=== PATIENT | female | born 1945 | race Caucasian/White ===

== ENCOUNTER → 2018-03-16 16:30 | Outpatient (CLI) | payer OTHER, SELFPAY ==
--- NOTE | 2018-03-16 16:37 | DI.MRI.S_ITS ---
PROCEDURE: MR SHOULDER LT WO CON INDICATIONS: LEFT SHOULDER PAIN WITH DECREASED RANGE OF MOTION POST FALL TECHNIQUE: Noncontrast oblique coronal T2 fast spin echo with fat saturation, oblique sagittal T1 spin echo and T2 fast spin echo with fat saturation, axial T1 spin echo and T2 fast spin echo with fat saturation through the shoulder. COMPARISON: None. FINDINGS: Image quality: Excellent. Rotator cuff: There is tendinosis and moderate grade articular surface partial thickness tear involving musculotendinous junction of supraspinatus. Tendinosis and low-grade articular surface partial-thickness tear involving the distal infraspinatus is also seen. Tendinosis and low-grade partial-thickness tear involving the superior to mid fibers of the distal subscapularis is noted extending to musculotendinous junction. No gross full-thickness rotator cuff tendon rupture. Sagittal images demonstrate mild supraspinatus muscle atrophy. Bones and bursae: No bone marrow contusions or fractures. Moderate acromioclavicular joint osteoarthritis is seen with mass effect on musculotendinous junction of supraspinatus. Mild glenohumeral joint osteoarthritis is also noted. There is small amount of glenohumeral joint fluid. No significant subacromial subdeltoid bursal fluid. Capsule and soft tissues: There is superior anterior labral tear at 12 to 2:00 position. No gross inferior labral tear. The long head of the biceps tendon demonstrates normal location and morphology. The rotator interval appears normal, without fibrosis. The coracohumeral ligament is normal in thickness. IMPRESSION: 1. Tendinosis and moderate grade articular surface partial thickness tear involving musculotendinous junction of distal supraspinatus. Tendinosis and low-grade articular surface partial-thickness involving distal infraspinatus. Tendinosis and low-grade partial-thickness tear involving superior to mid fibers of distal subscapularis. No full-thickness rotator cuff tendon tear. Mild supraspinatus muscle atrophy. 2. Suggestion of superior anterior labral tear from 12 to 2:00 position. 3. Moderate acromioclavicular joint osteoarthritis and mild glenohumeral joint osteoarthritis. No fracture or dislocation. Dictated by: Manuel Brooks M.D. on 03/16/2018 at 21:25 Approved by: Manuel Brooks M.D. on 03/16/2018 at 21:31
== END ==
PROVIDERS: Visit Provider Nurse Practitioner Acute Care
DX: M25.512 Pain in left shoulder (principal); S46.012A Strain of muscle(s) and tendon(s) of the rotator cuff of left shoulder, initial encounter; M19.012 Primary osteoarthritis, left shoulder
CPT/HCPCS: 73221

== ENCOUNTER → 2019-03-02 12:13 | Outpatient (CLI) | payer OTHER, SELFPAY ==
--- NOTE | 2019-03-02 | DI.MG.S_ITS ---
BILATERAL DIGITAL SCREENING MAMMOGRAM 3D/2D WITH CAD: 03/02/2019 CLINICAL: Routine screening. Comparison is made to exams dated: 04/03/2017 mammogram, 05/22/2015 mammogram, and 11/09/2013 mammogram - [facility]. The tissue of both breasts is heterogeneously dense. This may lower the sensitivity of mammography. Current study was also evaluated with a Computer Aided Detection (CAD) system. No significant masses, calcifications, or other findings are seen in either breast. There has been no significant interval change. IMPRESSION: NEGATIVE There is no mammographic evidence of malignancy. A 1 year screening mammogram is recommended. This exam was interpreted at Station ID: [id number]. NOTE: For mammograms, a report in lay terms will be sent to the patient. Approximately 15% of breast malignancies will not be visualized mammographically. In the management of a palpable breast mass, a negative mammogram must not discourage biopsy of a clinically suspicious lesion. Electronically Signed By: Narendra ty/taina:03/02/2019 13:55:50 letter sent: Normal Exam ACR BI-RADS Category 1: Negative [id number]
== END ==
PROVIDERS: Visit Provider Nurse Practitioner Acute Care
DX: Z13.21 Encounter for screening for nutritional disorder (principal)
CPT/HCPCS: 77063; 77067

== ENCOUNTER 2020-08-13 13:05 | Emergency (ER) | payer MEDICARE, OTHER, SELFPAY ==
[2020-08-13 13:10] VITALS: BP 144/79; PULSE 83; RESP 20; TEMP 36.3; O2SAT 97
[2020-08-13 13:38] LABS: Add Manual Diff / Slide Review NO; Basophils Absolute Auto 100 /uL (0-100); Basophils Percent Auto 0.7 % (0-2); Eosinophils Absolute Auto 200 /uL (0-450); Eosinophils Percent Auto 2.1 % (2-4); Hemoglobin 13.5 g/dL (12.0-16.0); Lymphocytes Absolute Auto 1900 /uL (1100-4500); Lymphocytes Percent Auto 21.9 % (25-40); Mean Corpuscular HGB Conc 32.1 % (30-36); Mean Corpuscular Hemoglobin 26.2 PG (26-34); Mean Corpuscular Volume 81.5 fL (80-100); Monocytes Absolute Auto 700 /uL (0-900); Monocytes Percent Auto 7.4 % (3-14); Neutrophils Absolute Auto 6000 /uL (1500-7000); Neutrophils Percent Auto 67.9 % (50-75); Platelet Count 339 X10^3/uL (150-400); Red Blood Cell Count 5.15 X10^6/uL (4.0-5.2); White Blood Cell Count 8.8 X10^3/uL (4.5-11.0)
[2020-08-13 13:44] LABS: Ictotest Urine Negative (Negative)
[2020-08-13 13:45] LABS: Bacteria Urine Many (>30); Culture Indicated Urine Specimen Cultured; RBC Urine 10-30/HPF (0-5/HPF); Squamous Epithelial Cell Urine 1-5 /HPF (0-5/HPF); Transitional Epi Cells Urine 5-10/HPF (0-5/HPF); WBC Urine 30-100/HPF (0-5/HPF)
[2020-08-13 13:49] LABS: Alanine Aminotransferase 15 IU/L (<35); Albumin 4.3 g/dL (3.5-5.0); Alkaline Phosphatase 67 U/L (38-126); Amylase 89 U/L (30-110); Aspartate Aminotransferase 27 IU/L (14-36); BUN Creatinine Ratio 20.4 (6-22); Bilirubin Total 0.3 mg/dL (0.2-1.3); Blood Urea Nitrogen 21 mg/dL (7-17); Calcium 9.6 mg/dL (8.4-10.2); Carbon Dioxide 30 mmol/L (22-32); Chloride 103 mmol/L (98-107); Estimated Glomerular Filt Rate 52.4 mL/min (>60); Globulin 4.2 g/dL (1.7-4.1); Glucose 98 mg/dL (80-110); HEMOLYSIS < 15 (0-50); Lipase 82 U/L (23-300); Potassium 4.1 mmol/L (3.4-5.1); Sodium 137 mmol/L (137-145); Total Protein 8.5 g/dL (6.3-8.2)
[2020-08-13 13:51] LABS: Lactate (Lactic Acid) 0.7 mmol/L (0.7-2.1)
--- NOTE | 2020-08-13 13:54 | DI.CT.S_ITS ---
PROCEDURE: CT ABDOMEN PELVIS W CON INDICATIONS: LLQ pain, hx divritic TECHNIQUE: After the administration of intravenous contrast, 5 mm thick sections acquired from the diaphragm to the symphysis. 5 mm coronal and sagittal reformats were acquired. For radiation dose reduction, the following was used: automated exposure control, adjustment of mA and/or kV according to patient size. COMPARISON: None. FINDINGS: Image quality: Excellent. ABDOMEN: Lung bases: Lung bases are clear. Heart size is normal. Solid organs: Linear enhancement within the right anterior aspect of the liver. Punctate calcifications consistent with prior granulomatous disease. Gallbladder is surgically absent. Biliary system is prominent likely within normal limits given surgical status. Pancreas enhances normally. Spleen is normal in size and enhancement. No adrenal nodules. There are multiple simple cysts noted throughout the kidneys. There is a 1.7 centimeter cystic lesion within the superior pole of the left kidney which measures slightly greater than simple fluid. There is no hydronephrosis. Peritoneum and bowel: Stomach and small bowel are unremarkable in appearance without evidence of obstruction. No focal wall thickening. The appendix is normal. There is sigmoid colon diverticulosis. There is suggestion of minimal inflammation noted adjacent to it with 3-4 centimeter stretch adjacent to the distal sigmoid colon within the left pelvis. There is no fluid collection. No pneumoperitoneum. Nodes and vessels: No retroperitoneal or mesenteric adenopathy by size criteria. Aorta and inferior vena cava are normal in size. There is diffuse vascular calcifications. 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 Miscellaneous: No ventral hernias. PELVIS: Genitourinary: Bladder wall thickness is normal. Miscellaneous: No inguinal hernias or adenopathy. Bones: No suspicious bony lesions. No vertebral body compression fractures. IMPRESSION: Diverticulosis. There is very subtle inflammation surrounding a short segment of distal sigmoid colon which may represent early diverticulitis. No evidence of complication. Multiple renal cysts. Indeterminate cystic lesion within the superior pole of the left kidney. Recommend dedicated renal CT or MRI for further evaluation Subtle linear densities within the anterior aspect of the right hepatic lobe may represent vascular anomaly. Recommend attention on renal imaging. Dictated by: Ld Rhoades D.O. on 08/13/2020 at 13:40 Approved by: Ld Rhoades D.O. on 08/13/2020 at 13:52
--- NOTE | 2020-08-13 14:08 | ED.ABDPAIN ---
HPI - Abdominal Pain <ALYSSA Nguyen-BC - Last Filed: 08/13/20 15:32> General Chief Complaint: Abdominal Pain Stated Complaint: pain in lower left quadrand Time Seen by Provider: 08/13/20 13:09 Source: patient Mode of arrival: Ambulatory Limitations: no limitations History of Present Illness HPI narrative: The patient is a 75 year old female non current smoker who presents with a chief complaint of left lower quadrant pain for the past week or so. She has a history of hypertension, hysterectomy, cholecystectomy, as well as diverticulitis. She had a colonoscopy after her episode of diverticulitis this summer which found diverticulosis. She denies any fevers muscle aches or chills. She denies any nausea or vomiting. She states that at time her pain is 10/10 but is currently 4/ 10. She denies any dysuria but complains of urgency. Who states that this feels very similar to her previous episode of diverticulitis. Denies any change in bowel habits, last bowel movement this morning. Related Data Home Medications Medication Instructions Recorded Confirmed atenolol 50 mg PO QDAY #0 08/25/11 conjugated estrogens [Premarin] 0.625 mg PO QDAY #0 08/25/11 fluoxetine [Prozac] 20 mg Q DAY #0 08/25/11 levothyroxine 0.088 mg PO QDAY #0 08/25/11 lisinopril 5 mg PO QDAY #0 08/25/11 Previous Rx's Medication Instructions Recorded ciprofloxacin HCl 500 mg PO BID #14 tab 08/13/20 metronidazole 500 mg PO Q8H 7 Days #21 tab 08/13/20 Allergies Allergy/AdvReac Type Severity Reaction Status Date / Time codeine Allergy Mild Verified 08/13/20 13:20 Review of Systems <NATHANAEL NguyenBC - Last Filed: 08/13/20 15:32> Review of Systems Narrative: GENERAL: Denies chills, fatigue, malaise, fever, sweats. HEENT: Denies sinus pain, ear pain, sore throat, difficulty swallowing, dizziness. RESPIRATORY: Denies dyspnea, cough, wheezing, hemoptysis, sputum. CARDIOVASCULAR: Denies chest pain, palpitations, orthopnea, edema, GASTROINTESTINAL: See HPI : Denies dysuria, frequency, incontinence, hematuria, urinary retention. MUSCULOSKELETAL: denies weakness, joint pain, or bony pain SKIN: Denies rash, skin lesions, or other NEUROLOGIC: Denies weakness, headache, numbness, change in speech, confusion, seizures, incoordination. PSYCHIATRIC: No concerning psychosocial issues. 12 point review of systems is negative except for those stated above Patient History <PATEL Nguyen - Last Filed: 08/13/20 15:32> Medical History (Updated 08/13/20 @ 15:29 by PATEL Nguyen) Hypertension Hypothyroid Surgical History (Updated 08/13/20 @ 14:11 by PATEL Nguyen) History of cholecystectomy History of hysterectomy Exam <PATEL Nguyen - Last Filed: 08/13/20 15:32> Narrative Exam Narrative: GENERAL: This is a well-nourished, well-developed patient, in no acute distress HEAD: Atraumatic. Normocephalic. No temporal or scalp tenderness. EYES: Pupils equal round and reactive. Extraocular motions intact. No scleral icterus. No injection or drainage. ENT: Nose without bleeding, purulent drainage or septal hematoma. Wearing a mask Airway patent. NECK: Trachea midline. No JVD or lymphadenopathy. Supple, nontender, no meningeal signs. CARDIOVASCULAR: Regular rate and rhythm RESPIRATORY: Clear to auscultation. Breath sounds equal bilaterally. No wheezes, rales, or rhonchi. No cough. No increased respiratory effort. No accessory muscle use. GASTROINTESTINAL: Abdomen soft, active bowel sounds all 4 quadrants, nondistended. No hepato-splenomegaly, or palpable masses. Pain to palpation with slight guarding noted left lower quadrant EXTREMITIES: No clubbing, cyanosis, or edema. No joint tenderness, effusion, or edema noted. BACK: Nontender without deformity or crepitance. No flank tenderness. NEURO: AOx3. SKIN: No rash or erythema on visible skin Initial Vital Signs Initial Vital Signs: Vital Signs Temperature 97.4 F L 08/13/20 13:10 Pulse Rate 83 08/13/20 13:10 Respiratory Rate 20 08/13/20 13:10 Blood Pressure 144/79 H 08/13/20 13:10 Pulse Oximetry 97 08/13/20 13:10 <Ethan Singh DO - Last Filed: 08/13/20 15:36> Initial Vital Signs Initial Vital Signs: Vital Signs Temperature 97.4 F L 08/13/20 13:10 Pulse Rate 83 08/13/20 13:10 Respiratory Rate 20 08/13/20 13:10 Blood Pressure 144/79 H 08/13/20 13:10 Pulse Oximetry 97 08/13/20 13:10 Scores <Alena PATEL Beltre - Last Filed: 08/13/20 15:32> GCS Deborah coma scale eye opening: Spontaneous Deborah coma scale verbal response: Orientated Deborah coma scale motor response: Obey commands Deborah coma scale total score: 15 Course <PATEL Nguyen - Last Filed: 08/13/20 15:32> Orders Ordered: ED Orders 08/13/20 13:22 Amylase Stat Complete Blood Count AUTO DIFF Stat Comprehensive Metabolic Panel Stat Ictotest Urine Stat Lactate (Lactic Acid) Stat Lipase Stat Urine Culture Stat Urine Microscopic Stat 08/13/20 13:51 Urine Microscopic Stat 08/13/20 13:54 CT abdomen pelvis w con Stat Sodium Chloride (Normal Saline 0.9%) 1,000 mls @ 150 mls/hr IV CONT MAXI Last Admin: 08/13/20 13:35 Dose: Not Given Documented by: MARLA Discontinued Medications Ciprofloxacin (Ciprofloxacin 500 Mg Tablet) 500 mg PO NOW ONE Stop: 08/13/20 15:16 Last Admin: 08/13/20 15:21 Dose: 500 mg Documented by: SYBIL Sodium Chloride (Normal Saline 0.9%) 1,000 mls @ 1,000 mls/hr IV BOLUS ONE Stop: 08/13/20 14:53 Last Infusion: 08/13/20 15:33 Dose: 0 mls/hr Documented by: Admin: 08/13/20 14:25 Dose: 1,000 mls/hr Documented by: MARLA Metronidazole (Metronidazole 500 Mg Tablet) 500 mg PO NOW ONE Stop: 08/13/20 15:16 Last Admin: 08/13/20 15:21 Dose: 500 mg Documented by: SYBIL Vital Signs Vital signs: Vital Signs - 8 hr 08/13/20 13:10 Temperature 97.4 F L Pulse Rate 83 Respiratory Rate 20 Blood Pressure 144/79 H Pulse Oximetry 97 <Ethan Singh DO - Last Filed: 08/13/20 15:36> Orders Ordered: ED Orders 08/13/20 13:22 Amylase Stat Complete Blood Count AUTO DIFF Stat Comprehensive Metabolic Panel Stat Ictotest Urine Stat Lactate (Lactic Acid) Stat Lipase Stat Urine Culture Stat Urine Microscopic Stat 08/13/20 13:51 Urine Microscopic Stat 08/13/20 13:54 CT abdomen pelvis w con Stat Sodium Chloride (Normal Saline 0.9%) 1,000 mls @ 150 mls/hr IV CONT MAXI Last Admin: 08/13/20 13:35 Dose: Not Given Documented by: MARLA Discontinued Medications Ciprofloxacin (Ciprofloxacin 500 Mg Tablet) 500 mg PO NOW ONE Stop: 08/13/20 15:16 Last Admin: 08/13/20 15:21 Dose: 500 mg Documented by: SYBIL Sodium Chloride (Normal Saline 0.9%) 1,000 mls @ 1,000 mls/hr IV BOLUS ONE Stop: 08/13/20 14:53 Last Infusion: 08/13/20 15:33 Dose: 0 mls/hr Documented by: Admin: 08/13/20 14:25 Dose: 1,000 mls/hr Documented by: MARLA Metronidazole (Metronidazole 500 Mg Tablet) 500 mg PO NOW ONE Stop: 08/13/20 15:16 Last Admin: 08/13/20 15:21 Dose: 500 mg Documented by: SYBIL Vital Signs Vital signs: Vital Signs - 8 hr 08/13/20 13:10 Temperature 97.4 F L Pulse Rate 83 Respiratory Rate 20 Blood Pressure 144/79 H Pulse Oximetry 97 MDM - Abdominal Pain <PATEL Nguyen - Last Filed: 08/13/20 15:32> Differential Diagnosis Differential diagnosis: Likely abdominal pain and diverticulitis Lab Data Attestation: I reviewed the patient's lab results. Result diagrams: 08/13/20 13:22 08/13/20 13:22 Labs: Lab Results 08/13/20 08/13/20 08/13/20 Range/Units 13:22 13:22 13:22 WBC 8.8 (4.5-11.0) X10^3/uL RBC 5.15 (4.0-5.2) X10^6/uL Hgb 13.5 (12.0-16.0) g/dL Hct 42.0 (36-46) % MCV 81.5 (80-100) fL MCH 26.2 (26-34) PG MCHC 32.1 (30-36) % RDW 14.0 (11.6-14.8) % Plt Count 339 (150-400) X10^3/uL Neut % (Auto) 67.9 (50-75) % Lymph % (Auto) 21.9 L (25-40) % Ransom % (Auto) 7.4 (3-14) % Eos % (Auto) 2.1 (2-4) % Baso % (Auto) 0.7 (0-2) % Neut # (Auto) 6000 (3988-8704) /uL Lymph # (Auto) 1900 (1549-3609) /uL Ransom # (Auto) 700 (0-900) /uL Eos # (Auto) 200 (0-450) /uL Baso # (Auto) 100 (0-100) /uL Sodium 137 (137-145) mmol/L Potassium 4.1 (3.4-5.1) mmol/L Chloride 103 (98-107) mmol/L Carbon Dioxide 30 (22-32) mmol/L BUN 21 H (7-17) mg/dL Creatinine 1.03 (0.52-1.04) mg/dL Estimated GFR 52.4 L (>60) mL/min BUN/Creatinine Ratio 20.4 (6-22) Glucose 98 (80-110) mg/dL Lactate 0.7 (0.7-2.1) mmol/L Calcium 9.6 (8.4-10.2) mg/dL Total Bilirubin 0.3 (0.2-1.3) mg/dL AST 27 (14-36) IU/L ALT 15 (<35) IU/L Alkaline Phosphatase 67 (38-126) U/L Total Protein 8.5 H (6.3-8.2) g/dL Albumin 4.3 (3.5-5.0) g/dL Globulin 4.2 H (1.7-4.1) g/dL Albumin/Globulin Ratio 1.0 (1.0-2.8) Amylase 89 (30-110) U/L Lipase 82 (23-300) U/L Ur Bilirubin Confirm (Negative) Urine RBC (0-5/HPF) Urine WBC (0-5/HPF) Ur Squamous Epith Cells (0-5/HPF) Ur Transition Epith Cell (0-5/HPF) Urine Bacteria (None) Ur Culture Indicated? 08/13/20 Range/Units 13:22 WBC (4.5-11.0) X10^3/uL RBC (4.0-5.2) X10^6/uL Hgb (12.0-16.0) g/dL Hct (36-46) % MCV (80-100) fL MCH (26-34) PG MCHC (30-36) % RDW (11.6-14.8) % Plt Count (150-400) X10^3/uL Neut % (Auto) (50-75) % Lymph % (Auto) (25-40) % Ransom % (Auto) (3-14) % Eos % (Auto) (2-4) % Baso % (Auto) (0-2) % Neut # (Auto) (0321-7472) /uL Lymph # (Auto) (0658-9687) /uL Ransom # (Auto) (0-900) /uL Eos # (Auto) (0-450) /uL Baso # (Auto) (0-100) /uL Sodium (137-145) mmol/L Potassium (3.4-5.1) mmol/L Chloride (98-107) mmol/L Carbon Dioxide (22-32) mmol/L BUN (7-17) mg/dL Creatinine (0.52-1.04) mg/dL Estimated GFR (>60) mL/min BUN/Creatinine Ratio (6-22) Glucose (80-110) mg/dL Lactate (0.7-2.1) mmol/L Calcium (8.4-10.2) mg/dL Total Bilirubin (0.2-1.3) mg/dL AST (14-36) IU/L ALT (<35) IU/L Alkaline Phosphatase (38-126) U/L Total Protein (6.3-8.2) g/dL Albumin (3.5-5.0) g/dL Globulin (1.7-4.1) g/dL Albumin/Globulin Ratio (1.0-2.8) Amylase (30-110) U/L Lipase (23-300) U/L Ur Bilirubin Confirm Negative (Negative) Urine RBC 10-30/hpf H (0-5/HPF) Urine WBC 30-100/hpf H (0-5/HPF) Ur Squamous Epith Cells 1-5 /hpf (0-5/HPF) Ur Transition Epith Cell 5-10/hpf H (0-5/HPF) Urine Bacteria Many (>30) H (None) Ur Culture Indicated? Specimen cultured Point of care testing: Urine Dip Bedside Urine Glucose Negative Bedside Urine Bilirubin + 1 Bedside Urine Ketone - Negative Urine Specific [place] 1.025 Bedside Urine Occult Blood + Bedside Urine pH 6.0 Bedside Urine Protein ++ 100 Bedside Urine Urobilinogen - Negative Bedside Urine Nitrite - Negative Bedside Urine Leukocytes +/- [address] scan - abdomen/pelvis: Radiologist's Impression: [address] [place] [id number] Scan ReportSigned Patient: Uzma WellsMR#: [id number]: 7Acct:[id number]/Sex: 75 / FDate of Service: 08/13/20Loc: EDAccession Number: [id number] Procedure: CT abdomen pelvis w con Ordering Provider: Alena Beltre TRANSFORMATION ANALYST- PROCEDURE: CT ABDOMEN PELVIS W CON INDICATIONS: LLQ pain, hx divritic TECHNIQUE: After the administration of intravenous contrast, 5 mm thick sections acquired from the diaphragm to the symphysis. 5 mm coronal and sagittal reformats were acquired. For radiation dose reduction, the following was used: automated exposure control, adjustment of mA and/or kV according to patient size. COMPARISON: None. FINDINGS: Image quality: Excellent. ABDOMEN: Lung bases: Lung bases are clear. Heart size is normal. Solid organs: Linear enhancement within the right anterior aspect of the liver. Punctate calcifications consistent with prior granulomatous disease. Gallbladder is surgically absent. Biliary system is prominent likely within normal limits given surgical status. Pancreas enhances normally. Spleen is normal in size and enhancement. No adrenal nodules. There are multiple simple cysts noted throughout the kidneys. There is a 1.7 centimeter cystic lesion within the superior pole of the left kidney which measures slightly greater than simple fluid. There is no hydronephrosis. Peritoneum and bowel: Stomach and small bowel are unremarkable in appearance without evidence of obstruction. No focal wall thickening. The appendix is normal. There is sigmoid colon diverticulosis. There is suggestion of minimal inflammation noted adjacent to it with 3-4 centimeter stretch adjacent to the distal sigmoid colon within the left pelvis. There is no fluid collection. No pneumoperitoneum. Nodes and vessels: No retroperitoneal or mesenteric adenopathy by size criteria. Aorta and inferior vena cava are normal in size. There is diffuse vascular calcifications. 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 Miscellaneous: No ventral hernias. PELVIS: Genitourinary: Bladder wall thickness is normal. Miscellaneous: No inguinal hernias or adenopathy. Bones: No suspicious bony lesions. No vertebral body compression fractures. IMPRESSION: Diverticulosis. There is very subtle inflammation surrounding a short segment of distal sigmoid colon which may represent early diverticulitis. No evidence of complication. Multiple renal cysts. Indeterminate cystic lesion within the superior pole of the left kidney. Recommend dedicated renal CT or MRI for further evaluation Subtle linear densities within the anterior aspect of the right hepatic lobe may represent vascular anomaly. Recommend attention on renal imaging. Dictated by: Ld Rhoades D.O. on 08/13/2020 at 13:40 Approved by: Ld Rhoades D.O. on 08/13/2020 at 13:52 [facility] Narrative Medical decision making narrative: The patient is a 75-year-old female who presents with a chief complaint of left lower quadrant pain. Her labs are grossly unremarkable, no leukocytosis,Normal lactate. However given her history and pain on exam, CT abdomen pelvis was obtained. This is concerning for inflammation around a short segment of the distal sigmoid colon, which may represent early diverticulitis. Given her known diverticulosis and history of diverticulitis, will treat for diverticulitis. She also has urinary tract infection, which should be treated with her diverticulosis treatment. I did discuss at length with the patient that she was found to have multiple renal cysts, suggested follow-up regarding this as well as possible vascular anomaly of the right hepatic lobe. Will place patient on an ciprofloxacin and metronidazole. Patient declines any pain or nausea medication repeatedly in the emergency department and declines prescriptions. I encouraged follow-up with primary care provider in the next few days as well as coming back to the ER for acute concerns such as inability keep down food or fluid etcetera. Patient has no questions or concerns upon discharge, was able to tolerate 1st dose of antibiotics prior to discharge p.o., and was hemodynamically stable throughout her stay. <Ethan Singh, DO - Last Filed: 08/13/20 15:36> Lab Data Labs: Lab Results 08/13/20 08/13/20 08/13/20 Range/Units 13:22 13:22 13:22 WBC 8.8 (4.5-11.0) X10^3/uL RBC 5.15 (4.0-5.2) X10^6/uL Hgb 13.5 (12.0-16.0) g/dL Hct 42.0 (36-46) % MCV 81.5 (80-100) fL MCH 26.2 (26-34) PG MCHC 32.1 (30-36) % RDW 14.0 (11.6-14.8) % Plt Count 339 (150-400) X10^3/uL Neut % (Auto) 67.9 (50-75) % Lymph % (Auto) 21.9 L (25-40) % Ransom % (Auto) 7.4 (3-14) % Eos % (Auto) 2.1 (2-4) % Baso % (Auto) 0.7 (0-2) % Neut # (Auto) 6000 (7265-1585) /uL Lymph # (Auto) 1900 (3613-4118) /uL Ransom # (Auto) 700 (0-900) /uL Eos # (Auto) 200 (0-450) /uL Baso # (Auto) 100 (0-100) /uL Sodium 137 (137-145) mmol/L Potassium 4.1 (3.4-5.1) mmol/L Chloride 103 (98-107) mmol/L Carbon Dioxide 30 (22-32) mmol/L BUN 21 H (7-17) mg/dL Creatinine 1.03 (0.52-1.04) mg/dL Estimated GFR 52.4 L (>60) mL/min BUN/Creatinine Ratio 20.4 (6-22) Glucose 98 (80-110) mg/dL Lactate 0.7 (0.7-2.1) mmol/L Calcium 9.6 (8.4-10.2) mg/dL Total Bilirubin 0.3 (0.2-1.3) mg/dL AST 27 (14-36) IU/L ALT 15 (<35) IU/L Alkaline Phosphatase 67 (38-126) U/L Total Protein 8.5 H (6.3-8.2) g/dL Albumin 4.3 (3.5-5.0) g/dL Globulin 4.2 H (1.7-4.1) g/dL Albumin/Globulin Ratio 1.0 (1.0-2.8) Amylase 89 (30-110) U/L Lipase 82 (23-300) U/L Ur Bilirubin Confirm (Negative) Urine RBC (0-5/HPF) Urine WBC (0-5/HPF) Ur Squamous Epith Cells (0-5/HPF) Ur Transition Epith Cell (0-5/HPF) Urine Bacteria (None) Ur Culture Indicated? 08/13/20 Range/Units 13:22 WBC (4.5-11.0) X10^3/uL RBC (4.0-5.2) X10^6/uL Hgb (12.0-16.0) g/dL Hct (36-46) % MCV (80-100) fL MCH (26-34) PG MCHC (30-36) % RDW (11.6-14.8) % Plt Count (150-400) X10^3/uL Neut % (Auto) (50-75) % Lymph % (Auto) (25-40) % Ransom % (Auto) (3-14) % Eos % (Auto) (2-4) % Baso % (Auto) (0-2) % Neut # (Auto) (5633-0308) /uL Lymph # (Auto) (4544-6999) /uL Ransom # (Auto) (0-900) /uL Eos # (Auto) (0-450) /uL Baso # (Auto) (0-100) /uL Sodium (137-145) mmol/L Potassium (3.4-5.1) mmol/L Chloride (98-107) mmol/L Carbon Dioxide (22-32) mmol/L BUN (7-17) mg/dL Creatinine (0.52-1.04) mg/dL Estimated GFR (>60) mL/min BUN/Creatinine Ratio (6-22) Glucose (80-110) mg/dL Lactate (0.7-2.1) mmol/L Calcium (8.4-10.2) mg/dL Total Bilirubin (0.2-1.3) mg/dL AST (14-36) IU/L ALT (<35) IU/L Alkaline Phosphatase (38-126) U/L Total Protein (6.3-8.2) g/dL Albumin (3.5-5.0) g/dL Globulin (1.7-4.1) g/dL Albumin/Globulin Ratio (1.0-2.8) Amylase (30-110) U/L Lipase (23-300) U/L Ur Bilirubin Confirm Negative (Negative) Urine RBC 10-30/hpf H (0-5/HPF) Urine WBC 30-100/hpf H (0-5/HPF) Ur Squamous Epith Cells 1-5 /hpf (0-5/HPF) Ur Transition Epith Cell 5-10/hpf H (0-5/HPF) Urine Bacteria Many (>30) H (None) Ur Culture Indicated? Specimen cultured Point of care testing: Urine Dip Bedside Urine Glucose Negative Bedside Urine Bilirubin + 1 Bedside Urine Ketone - Negative Urine Specific [place] 1.025 Bedside Urine Occult Blood + Bedside Urine pH 6.0 Bedside Urine Protein ++ 100 Bedside Urine Urobilinogen - Negative Bedside Urine Nitrite - Negative Bedside Urine Leukocytes +/- 15 Esterase Discharge Plan Departure Patient Disposition: Home Clinical Impression: Diverticulitis, Bilateral renal cysts Urinary tract infection Qualifiers: Urinary tract infection type: site unspecified Hematuria presence: with hematuria Qualified Code(s): N39.0 - Urinary tract infection, site not specified Instructions: DI for Diverticulitis, DI for Urinary Tract Infection (UTI) Activity Restrictions/Additional Instructions: Thank you for trusting us with your care today. As discussed, your CT shows signs of inflammation, indicating early diverticulitis. I sent 2 prescriptions which are antibiotics to [facility]. Please eat a light diet, starting with clear fluids and then progress as able. The CT also does show possibility of some renal cysts and a very subtle vascular irregularity of the right lobe of your liver. Please follow-up with primary care provider regarding this as they may be able to get more focused Imaging. Please do not drink with his antibiotics. Please follow-up with primary care provider in the next few days. Please come back to the emergency department for any acute concerns such as inability keep down fluids. Prescriptions: New metronidazole 500 mg tablet 500 mg PO Q8H 7 Days Qty: 21 RF: 0 ciprofloxacin HCl 500 mg tablet 500 mg PO BID Qty: 14 RF: 0 No Action atenolol 25 MG tablet 50 mg PO QDAY Qty: 0 RF: 0 fluoxetine [Prozac] 40 MG capsule 20 mg Q DAY Qty: 0 RF: 0 lisinopril 5 MG tablet 5 mg PO QDAY Qty: 0 RF: 0 levothyroxine 88 MCG tablet 0.088 mg PO QDAY Qty: 0 RF: 0 conjugated estrogens [Premarin] 0.625 MG tablet 0.625 mg PO QDAY Qty: 0 RF: 0 Referrals: Ileana Saldana MD [Non-Staff] - Corrie Ahmadi ARNP [Non-Staff] - <Ethan Singh, - Last Filed: 08/13/20 15:36> Cosign ED Attending Cosignature Attestation: Dr Singh Co-Sign Statement: I was available for consultation during this patient's emergency department visit. This chart is signed by myself for administrative purposes only. I did not have direct contact with this patient during this visit. They were seen independently by the APC.
[2020-08-13] MEDS: SODIUM CHLORIDE 0.9% 1,000 ML 1000 ML IV (14:25)
[2020-08-13] MEDS: metroNIDAZOLE 500 MG TABLET PO (15:21)
[2020-08-13] MEDS: CIPROFLOXACIN 500 MG TABLET PO (15:21)
[2020-08-13 15:45] VITALS: BP 152/81; PULSE 81; RESP 18; O2SAT 97
== END 2020-08-13 15:40 | disposition home or self-care (01) ==
PROVIDERS: Emergency Provider Nurse Practitioner Family
DX: K57.92 Diverticulitis of intestine, part unspecified, without perforation or abscess without bleeding (principal); N28.1 Cyst of kidney, acquired; N39.0 Urinary tract infection, site not specified; I10 Essential (primary) hypertension; E03.9 Hypothyroidism, unspecified
CPT/HCPCS: 36415; 74177; 80053; 81003; 81015; 82150; 83605; 83690; 85025; 87077; 87086; 87186; 96360; 99283; 99284; Q9967

== ENCOUNTER → 2020-09-11 10:47 | Outpatient (CLI) | payer MEDICARE, OTHER, SELFPAY ==
[2020-09-11 12:10] LABS: BUN Creatinine Ratio 19.5 (6-22); Blood Urea Nitrogen 16 mg/dL (7-17); Estimated Glomerular Filt Rate > 60.0 mL/min (>60)
== END ==
PROVIDERS: PCP Student in an Organized Health Care Education/Training Program; Referring Provider Student in an Organized Health Care Education/Training Program; Visit Provider Student in an Organized Health Care Education/Training Program
DX: Z01.818 Encounter for other preprocedural examination (principal)
CPT/HCPCS: 36415; 82565; 84520

== ENCOUNTER → 2020-09-18 09:41 | Outpatient (CLI) | payer MEDICARE, OTHER, SELFPAY ==
--- NOTE | 2020-09-18 09:43 | DI.MG.S_ITS ---
BILATERAL DIGITAL SCREENING MAMMOGRAM 3D/2D WITH CAD: 09/18/2020 CLINICAL: Routine screening. Comparison is made to exams dated: 03/02/2019 mammogram - [facility], 04/03/2017 mammogram, 05/22/2015 mammogram, and 11/09/2013 mammogram - [facility]. There are scattered fibroglandular elements in both breasts. Current study was also evaluated with a Computer Aided Detection (CAD) system. No significant masses, calcifications, or other findings are seen in either breast. There has been no significant interval change. IMPRESSION: NEGATIVE There is no mammographic evidence of malignancy. A 1 year screening mammogram is recommended. This exam was interpreted at Station ID: [id number]. NOTE: For mammograms, a report in lay terms will be sent to the patient. Approximately 15% of breast malignancies will not be visualized mammographically. In the management of a palpable breast mass, a negative mammogram must not discourage biopsy of a clinically suspicious lesion. Electronically Signed By: Shivam mathur/taina:09/18/2020 10:58:04 letter sent: Normal Exam ACR BI-RADS Category 1: Negative [id number]
--- NOTE | 2020-09-18 11:05 | DI.CT.S_ITS ---
PROCEDURE: CT ABDOMEN WWO PELVIS W INDICATIONS: Eval renal cysts and hepatic lesion on previous CT TECHNIQUE: After the administration of oral contrast, 5 mm thick sections acquired from the diaphragms to the iliac crests. After the administration of intravenous contrast, 5 mm thick sections acquired from the diaphragms to the symphysis. 5 mm thick coronal and sagittal reformats were acquired. For radiation dose reduction, the following was used: automated exposure control, adjustment of mA and/or kV according to patient size. COMPARISON: [facility], CT, CT ABDOMEN PELVIS W CON, 08/13/2020, 13:54. FINDINGS: Image quality: Excellent. ABDOMEN: Lung bases: Lung bases are clear. Heart size is normal. Probable small hiatal hernia. Solid organs: Liver is normal in size. The previously seen area of linear enhancement in the anterior right lobe of the liver is not redemonstrated. This is most compatible with a perfusion abnormality. There is a subtle area of hypodensity near the falciform ligament is less conspicuous and is most compatible with focal fatty infiltration. No suspicious enhancement. No washout. Small calcified granuloma. Gallbladder is surgically absent. Biliary system is non-dilated. Pancreas enhances normally. Spleen is normal in size and enhancement. No adrenal nodules. Both kidneys are normal in size. No hydronephrosis or nephrolithiasis. The opacified portions of the proximal and mid ureters are unremarkable. No filling defects seen. Numerous bilateral renal cysts. The majority are simple. A few cysts are intermediate density and are indeterminate. However, no enhancement is appreciated. For example: -Left kidney superior pole exophytic measuring 1.5 cm and 30-35 Hounsfield units, (3/18), remotely 1.4 cm in 2011. No enhancement. -Right kidney superior pole exophytic measuring 0.9 cm and 64 Hounsfield units, (7/106), remotely 0.7 cm. This most likely represents a hyperdense cyst. Bowel and peritoneum: Stomach, small and large bowel loops are normal in caliber and wall thickness. Diverticulosis. No diverticulitis. Normal appendix. No free fluid or air. Nodes and vessels: No retroperitoneal or mesenteric adenopathy by size criteria. Aorta and inferior vena are normal in caliber. Circumferential calcified atherosclerotic plaque. Miscellaneous: Tiny fat containing umbilical hernia. PELVIS: Genitourinary: Bladder is decompressed limiting evaluation. Uterus is absent. Miscellaneous: No inguinal hernias or adenopathy. Bones: No suspicious bony lesions. The L3-L4 severe DDD with endplate sclerosis. No vertebral body compression fractures. IMPRESSION: 1. Left kidney superior pole cyst measuring 1.5 cm demonstrates mild complexity but no enhancement. Overall not significantly changed in size compared to 2014 and most consistent with a proteinaceous or hemorrhagic cysts. Additional hyperdense cyst. 2. Polycystic kidneys. 3. No suspicious hepatic lesion. Previously seen area of enhancement is most consistent with perfusion abnormality. 4. Diverticulosis. No convincing diverticulitis. Dictated by: Chele Cain M.D. on 09/18/2020 at 11:51 Approved by: Chele Cain M.D. on 09/18/2020 at 12:15
== END ==
PROVIDERS: PCP Student in an Organized Health Care Education/Training Program; Referring Provider Student in an Organized Health Care Education/Training Program; Visit Provider Student in an Organized Health Care Education/Training Program
DX: Z12.31 Encounter for screening mammogram for malignant neoplasm of breast (principal); N28.1 Cyst of kidney, acquired; K76.9 Liver disease, unspecified; K57.90 Diverticulosis of intestine, part unspecified, without perforation or abscess without bleeding; Z13.820 Encounter for screening for osteoporosis; Z78.0 Asymptomatic menopausal state; E07.9 Disorder of thyroid, unspecified; Z87.891 Personal history of nicotine dependence
CPT/HCPCS: 74178; 77063; 77067; 77080; 77081

== ENCOUNTER → 2020-11-13 11:28 | Outpatient (CLI) | payer MEDICARE, OTHER, SELFPAY ==
--- NOTE | 2020-11-13 11:30 | DI.RAD.S_ITS ---
PROCEDURE: XR LUMBAR SPINE 2-3V INDICATIONS: Low back pain TECHNIQUE: 3 views of the lumbar spine were acquired. COMPARISON: None. FINDINGS: Bones: 5 ytl-hps-ekamicz vertebrae are present. There is normal bony alignment. No vertebral body compression fractures. No suspicious bony lesions. L2-3 severe disc space narrowing, endplate sclerosis and anterior osteophyte noted. Hypertrophic facet joints result in foraminal stenosis and 3 mm retrolisthesis. Hypertrophic facet joints also noted at L4-5 and L5-S1. Soft tissues: Atherosclerotic calcification in the abdominal aorta noted without evidence of aneurysm. Surgical clips noted in the right upper quadrant. IMPRESSION: Degenerative disc disease and arthropathy results in mild retrolisthesis at L2-3 Atherosclerotic vascular calcification in cholecystectomy Dictated by: Humberto Thomas M.D. on 11/13/2020 at 13:33 Approved by: Humberto Thomas M.D. on 11/13/2020 at 13:35
== END ==
PROVIDERS: PCP Student in an Organized Health Care Education/Training Program; Referring Provider Physical Medicine & Rehabilitation; Visit Provider Physical Medicine & Rehabilitation
DX: M51.16 Intervertebral disc disorders with radiculopathy, lumbar region (principal); M47.26 Other spondylosis with radiculopathy, lumbar region; M47.27 Other spondylosis with radiculopathy, lumbosacral region; M43.16 Spondylolisthesis, lumbar region; I70.0 Atherosclerosis of aorta; G89.29 Other chronic pain
CPT/HCPCS: 72100

== ENCOUNTER → 2021-01-30 08:20 | Outpatient (CLI) | payer MEDICARE, OTHER, SELFPAY ==
[2021-01-30 11:34] LABS: COVID19 -Nasal RAPID Negative (Negative)
== END ==
PROVIDERS: PCP Student in an Organized Health Care Education/Training Program; Visit Provider Physical Medicine & Rehabilitation
DX: Z20.822 Contact with and (suspected) exposure to COVID-19 (principal)
CPT/HCPCS: 87635; C9803

== ENCOUNTER 2021-02-01 12:30 | Outpatient (CLI) | payer MEDICARE, OTHER, SELFPAY ==
[2021-02-01] VITALS (7 sets, daily range): BP systolic 116–185; BP diastolic 62–85; PULSE 65–74; RESP 16–22; TEMP 36.4–36.6; O2SAT 93–100
--- NOTE | 2021-02-01 12:32 | DI.RAD.S_ITS ---
PROCEDURE: PAIN L INTERLAMINAR/CAUDAL INJ INDICATIONS: SPONDYLOSIS COMPARISON: None. FINDINGS: Fluoroscopic spot filming was performed to verify placement of spinal needles at the L2-L3 level(s), as labeled on the films. Appropriate location(s) of the needle tip(s) was confirmed by injection of iodinated contrast. Dictated by: Frank Bermudez M.D. on 02/01/2021 at 14:17 Approved by: Frank Bermudez M.D. on 02/01/2021 at 14:17
[2021-02-01] MEDS: MIDAZOLAM 5 MG/5 ML VIAL IV (13:16)
[2021-02-01] MEDS: fentaNYL 100 MCG/2 ML INJ 50 MCG IV (13:16)
[2021-02-01] MEDS: DEXAMETHASONE 10 MG/ML VIAL 20 MG INJ (13:22)
[2021-02-01] MEDS: BETAMETHASONE 30 MG/5 ML MDV 6 MG INJ (13:22)
[2021-02-01] MEDS: IOPAMIDOL 15 ML VIAL 3 ML INJ (13:23)
[2021-02-01] MEDS: BUPIVACAINE 0.25% (PF) VIAL 2 ML INJ (13:23)
--- NOTE | 2021-02-01 13:31 | P.PCN_ITS ---
Date/Time/Diagnoses Date of procedure: 02/01/21 Time of procedure: 13:32 Pre-procedure diagnosis: 1. HNP WITH RADICULAR FEATURES, 2. MULTILEVEL CENTRAL STENOSIS, Post-procedure diagnosis: same Procedure Notes Procedure: 1. FLUOROSCOPICALLY GUIDED CONTRAST CONTROLLED INTERLAMINAR EPIDURAL STEROID INJECTION - L2/3 Indications: Uzma is referred by Dr. Gupta for treatment of Bilateral Foraminal Stenosis L>R LE symptoms. Physician: Cam Colin Total Fluoroscopy time (seconds): 8 Total sedation minutes: 12 Complications: none Procedure in detail & Post-procedure care: FINDINGS Multilevel Central Spinal Stenosis with Nerve Root Compression DESCRIPTION OF PROCEDURE Fluoroscopically guided, contrast-controlled L2/3 translaminar epidural steroid injection. Following review of allergy and review of potential side effects and complications, including, but not necessarily limited to, infection, allergic reaction, local tissue breakdown, temporary as well as permanent nerve injury, paralysis, stroke and possible , the patient indicated that the patient understood and agreed to proceed. An informed consent document was signed by the patient, witnessed by a nurse, and placed in the patient's chart. Additionally, other treatment options including modalities, medications, and physical therapy were reviewed with the patient. After review of previous anaesthesic history and IV conscious sedation the patient was deemed safe to proceed with today?s procedure with IV conscious sedation as ASA class II designation. Safety time-out was performed to confirm patient ID, procedure to be performed and site of procedure. IV sedation was accomplished with a combination of 2mg Versed and 50mcg of Fentanyl administered by the RN after DO order, titrated to patient comfort during the course of the procedure while the patient remained responsive to all verbal commands. In the prone position, following sterile prep and drape of the lumbar region,the L2/3 translaminar space was identified fluoroscopically. The skin was anesthetized via a 25-gauge, 1.5-inch needle with 1% lidocaine solution. At this point, a 22-gauge short bevel spinal needle was atraumatically introduced and advanced under fluoroscopic guidance into the region of the L2/3 translaminar space. Depth was confirmed on lateral view. Radiological data, including multiple fluoroscopic views of the lumbar spine, reveal a spinal needle at the L2/3 translaminar space. Lateral views then show placement of the needle in the epidural space. Subsequent views show contrast material flowing superiorly and inferiorly in the epidural space. No vascular or intrathecal uptake is observed. At this point, using loss of resistance technique with saline and air, the epidural space was entered. This was confirmed following negative aspiration with injection of approximately 1.5 cc of Isovue 200, showing excellent epidural flow without vascular or intrathecal uptake. At this point, 1 cc of 1% l idocaine solution combined with 3cc or 20mg of dexamethasone and 6mg of betamethasone was injected without incident. The patient tolerated the procedure well without signs or symptoms of complicati ons prior to transfer to the recovery area continued monitoring without incident. The patient was then transferred to the recovery area where they were observed for an appropriate period of time after the injection. The patient reported a VAS score of 6 prior to the procedure and a post-procedure VAS of 0. POST OP INSTRUCTIONS The patient was provided a Pain Log to continue to record their response to the target-specific procedure prior to follow-up visit with their referring physician. Additionally, specific post-injection care instructions and a contact number to our office were provided if concerns arise regarding possible complications associated with the procedure are suspected.
== END 2021-02-01 13:47 | disposition home or self-care (01) ==
PROVIDERS: PCP Student in an Organized Health Care Education/Training Program; Referring Provider Physical Medicine & Rehabilitation; Visit Provider Physical Medicine & Rehabilitation
DX: M51.16 Intervertebral disc disorders with radiculopathy, lumbar region (principal); M48.061 Spinal stenosis, lumbar region without neurogenic claudication
CPT/HCPCS: 62323; 99152; J0702; J1100; J2250; J3010

== ENCOUNTER → 2021-04-21 13:50 | Outpatient (CLI) | payer MEDICARE, OTHER, SELFPAY | PROVIDERS: PCP Student in an Organized Health Care Education/Training Program; Referring Provider Physical Medicine & Rehabilitation; Visit Provider Physical Medicine & Rehabilitation | DX: M54.16 Radiculopathy, lumbar region (principal); Z53.20 Procedure and treatment not carried out because of patient's decision for unspecified reasons ==

== ENCOUNTER → 2021-05-14 11:41 | Outpatient (CLI) | payer MEDICARE, OTHER, SELFPAY ==
[2021-05-14 13:08] LABS: COVID19 -Nasal RAPID Negative (Negative)
== END ==
PROVIDERS: PCP Student in an Organized Health Care Education/Training Program; Referring Provider Physical Medicine & Rehabilitation; Visit Provider Physical Medicine & Rehabilitation
DX: Z20.822 Contact with and (suspected) exposure to COVID-19 (principal)
CPT/HCPCS: 87635; C9803

== ENCOUNTER 2021-05-15 12:18 | Outpatient (CLI) | payer MEDICARE, OTHER, SELFPAY ==
[2021-05-15] VITALS (7 sets, daily range): BP systolic 144–212; BP diastolic 65–90; PULSE 68–74; RESP 14–20; TEMP 36.3; O2SAT 95–98
--- NOTE | 2021-05-15 12:19 | DI.RAD.S_ITS ---
PROCEDURE: PAIN L/S TRANSFORAMINAL INJECT INDICATIONS: SPONDYLOSIS COMPARISON: [facility], XA, PAIN L INTERLAMINAR/CAUDAL INJ, 02/01/2021, 13:23. [facility], CR, XR LUMBAR SPINE 2-3V, 11/13/2020, 11:56. FINDINGS: Fluoroscopic spot filming was performed to verify placement of a spinal needle at the L4-L5 level, as labeled on the films. Appropriate location of the needle tip was confirmed by injection of iodinated contrast. IMPRESSION: Intraprocedural examination within normal limits. Dictated by: Alirio Wilkins M.D. on 05/15/2021 at 12:54 Approved by: Alirio Wilkins M.D. on 05/15/2021 at 12:55
[2021-05-15] MEDS: fentaNYL 100 MCG/2 ML INJ 50 MCG IV (13:17)
[2021-05-15] MEDS: MIDAZOLAM 5 MG/5 ML VIAL IV (13:17)
[2021-05-15] MEDS: BUPIVACAINE 0.25% (PF) VIAL 2 ML INJ (13:23)
[2021-05-15] MEDS: IOPAMIDOL 15 ML VIAL 3 ML INJ (13:23)
[2021-05-15] MEDS: BETAMETHASONE 30 MG/5 ML MDV 12 MG INJ (13:24)
[2021-05-15] MEDS: DEXAMETHASONE 10 MG/ML VIAL 20 MG INJ (13:24)
--- NOTE | 2021-05-15 13:35 | P.PCN_ITS ---
Date/Time/Diagnoses Date of procedure: 05/15/21 Time of procedure: 13:35 Pre-procedure diagnosis: 1. FORAMINAL STENOSIS WITH LE SYMPTOMS Post-procedure diagnosis: same Procedure Notes Procedure: 1. FLUOROSCOPICALLY GUIDED CONTRAST CONTROLLED TRANSFORAMINAL EPIDURAL STEROID INJECTION - RIGHT L4/5 TFESI Indications: Uzma is referred by Dr. Gupta for treatment of Foraminal Stenosis with Right LE Symptoms Physician: Cam Colin Total Fluoroscopy time (seconds): 12 Total sedation minutes: 12 Complications: none Procedure in detail & Post-procedure care: FINDINGS Foraminal Nerve Root Compression secondary to disc disease and facet hypertrophy DESCRIPTION OF PROCEDURE Following review of allergy and review of potential side effects and complications, including, but not necessarily limited to, infection, allergic reaction, local tissue breakdown, stroke, temporary or permanent nerve injury, paralysis, and possible , the patient indicated that the patient understood and agreed to proceed. An informed consent document was signed by the patient, witnessed by a nurse, and placed in the patient's chart. Additionally, other treatment options including medications, modalities, and physical therapy were reviewed with the patient. After review of previous anaesthesic history and IV conscious sedation the patient was deemed safe to proceed with today?s procedure with IV conscious sedation as ASA class II designation. Safety time-out was performed to confirm patient ID, procedure to be performed and site of procedure. IV sedation was accomplished with a combination of 2mg of Versed and 50mcg of Fentanyl was administered by the RN after DO order, titrated to patient comfort during the course of the procedure while the patient remained responsive to all verbal comm ands In the prone position following sterile prep and drape of the lumbar region, the right L4/5 posterior neuroforamen was identified fluoroscopically. The skin was anesthetized via a 25-gauge 1.5-inch needle with 1% lidocaine solution. At this point, a 22-gauge 5-inch spinal needle was atraumatically introduced and advanced under fluoroscopic guidance through the posterior right L4/5 neuro foramen to approximately the anterior aspect of the canal. Depth was confirmed on lateral view. Following negative aspiration, injection of approximately 1.5cc of Isovue 200 under live fluoroscopy in the AP view confirmed excellent flow along the nerve root, into the epidural space without vascular or intrathecal uptake observed Radiological data, including multiple fluoroscopic views of the lumbosacral spine, reveal a spinal needle at the right L4/5 posterior neuroforamen. Subsequent views show flow of contrast material flowing superiorly and inferiorly along the nerve root confirming epidural flow. Subsequently, a test dose of 1.5 cc of 1% lidocaine solution was administered and patient was observed for two minutes for signs or symptoms of complications, including abdominal pain, shortness of breath, bilateral upper or lower extremity weakness, nausea and vomiting, prior to steroid injection. At this point, a total of 4cc or 20mg of dexamethasone and 12mg of betamethasone was injected without incident. The procedure tolerated the procedure well without signs or symptoms of complications prior to transfer to the recovery area continued monitoring without incident. The patient was then transferred to the recovery area where they were observed for an appropriate time after the injection. The patient reported a VAS score of 7 prior to the procedure and a post-proc edure VAS of 0. POST OP INSTRUCTIONS The patient was provided a Pain Log to continue to record their response to the target-specific procedure prior to follow-up visit with their referring physician. Additionally, specific post-injection care instructions and a contact number to our office were provided if concerns arise regarding possible complications associated with the procedure are suspected.
== END 2021-05-15 13:48 | disposition home or self-care (01) ==
LOC: RAD 12:19
PROVIDERS: PCP Student in an Organized Health Care Education/Training Program; Referring Provider Physical Medicine & Rehabilitation; Visit Provider Physical Medicine & Rehabilitation
DX: M48.061 Spinal stenosis, lumbar region without neurogenic claudication (principal); M51.16 Intervertebral disc disorders with radiculopathy, lumbar region
CPT/HCPCS: 64483; 99152; J0702; J1100; J2250; J3010

== ENCOUNTER → 2021-08-27 13:26 | Outpatient (CLI) | payer OTHER, MEDICARE, SELFPAY ==
--- NOTE | 2021-08-27 | DI.ECHO.S_ITS ---
[facility] +---------+ [facility] +---------+ : : [address] : [place] : : : : [id number] : : : : Phone: [phone]+ Echocardiogram Report + + :Name: LEANNA HAMM Study Date: 08/27/2021 Height: 65 in : :[facility] ReadingLocation: Weight: 190 lb : : Gender: Female BSA: 1.9 m2 : :: 1945 Age: 76 yrs BP: 160/90 mmHg: :Reason For Study: Hypertensive heart disease without heart : :failure : :Ordering Physician: : :ARMAAN^Gretchen Performed By: Seth Tyler : :Referring: SUHA DEVINE S : + + Interpretation Summary The ejection fraction is estimated to be 55-60%. There is mild aortic regurgitation. The aortic arch is at the upper limits of normal in size. Procedure: A two-dimensional transthoracic echocardiogram with color flow and Doppler was performed. Images from the parasternal window were difficult to obtain and are suboptimal in quality. Most of the acoustic windows were suboptimal, but the best imaging was obtained from the apical window. There is no prior echocardiogram noted for this patient. The patient was in normal sinus rhythm during the exam. Left Ventricle: The left ventricle is normal in size. There is mild-moderate concentric left ventricular hypertrophy. There is mild proximal septal thickening noted. The ejection fraction is estimated to be 55-60%. There is a mild dyssynchronous contraction pattern, consistent with a conduction abnormality. Right Ventricle: The right ventricle is normal in size and function. Atria: Both atria are normal in size. There is no Doppler evidence for an interatrial shunt. Mitral Valve: The mitral valve is normal in structure and function. Aortic Valve: The aortic valve is grossly normal. There is mild aortic regurgitation. Tricuspid Valve: The tricuspid valve is normal. There is a trace or physiologic amount of tricuspid regurgitation. Pulmonary artery pressures cannot be estimated because of the lack of a measurable TR jet velocity but the IVC suggests a CVP of around 3 mmHg. Pulmonic Valve: The pulmonic valve is not well seen, but is grossly normal. Great Vessels: The aortic root is normal size. The ascending aorta could not be visualized. The aortic arch is at the upper limits of normal in size. The IVC is of normal diameter and collapses greater than 50% with a sniff. This suggests a low right atrial pressure of 3 mm Hg. Pericardium/ Pleura There is no pericardial effusion. There is an anterior echo-free space consistent with a fat pad. There is no pleural effusion. MMode/2D Measurements & Calculations LVIDd: 4.0 cm LVOT diam: 1.9 cm LVIDs: 3.1 cm Ao root diam: 3.2 cm FS: 22.5 % Ao Arch Diam (Prox Trans): 3.2 cm IVSd: 1.2 cm LVPWd: 1.3 cm LV nathan. diameter/BSA (cm/m^2): 2.1 LV sys. diameter/BSA (cm/m^2): 1.6 LA A2 area: 16.9 cm2 RA long axis: 4.3 cm LA A4 area: 13.4 cm2 LA length (vol): 4.8 cm LA vol: 40.4 ml LA vol index: 20.9 ml/m2 TAPSE_phl: 2.3 cm Doppler Measurements & Calculations Ao V2 max: 129.0 cm/sec LVOT Max Tim: 96.4 cm/sec Ao V2 mean: 88.4 cm/sec LV V1 max P.7 mmHg Ao max P.7 mmHg LV V1 VTI: 21.0 cm Ao mean P.4 mmHg FRANCK(I,D): 2.3 cm2 Ao V2 VTI: 26.4 cm FRANCK(V,D): 2.1 cm2 sev ratio: 0.80 FRANCK indexed to BSA (cm^2/m^2): 1.2 MV E max tim: 69.8 cm/sec SV(LVOT): 59.7 ml MV A max tim: 72.4 cm/sec MV E/A: 0.96 Med Peak E' Tim: 7.0 cm/sec E/E' med: 10.0 Lat Peak E' Tim: 6.1 cm/sec E/E' lat: 11.5 E/e' average: 10.7 MV dec time: 0.27 sec MV P1/2t-pr_phl: 78.0 msec Reading Physician:03:34 PM
== END ==
PROVIDERS: PCP Nurse Practitioner Acute Care; Referring Provider Nurse Practitioner Acute Care; Visit Provider Nurse Practitioner Acute Care
DX: I35.1 Nonrheumatic aortic (valve) insufficiency (principal); I11.9 Hypertensive heart disease without heart failure
CPT/HCPCS: 93306

== ENCOUNTER → 2021-11-21 12:59 | Outpatient (CLI) | payer OTHER, MEDICARE, SELFPAY ==
[2021-11-21 16:41] LABS: COVID19 -Nasal RAPID Negative (Negative)
== END ==
PROVIDERS: PCP Nurse Practitioner Acute Care; Referring Provider Nurse Practitioner Acute Care; Visit Provider Family Medicine Sleep Medicine
DX: Z20.822 Contact with and (suspected) exposure to COVID-19 (principal)
CPT/HCPCS: 87635; C9803

== ENCOUNTER → 2021-11-22 09:00 | Outpatient (CLI) | payer OTHER, MEDICARE, SELFPAY ==
--- NOTE | 2021-11-22 | DI.NM.S_ITS ---
PROCEDURE: NM CHIQUITA PERF SPECT R&S PHARM Rest and pharmacological stress myocardial perfusion SPECT with gated imaging and ejection fraction RADIOPHARMACEUTICAL: 11.2 mCi Tc-99m tetrafosmin IV at rest and 25.4 mCi Tc-99m tetrafosmin IV at peak effect of pharmacological stress. Ikw-fhr-iyrakgpi was performed. INDICATIONS: Hypertensive heart disease without heart failure TECHNIQUE: Radiopharmaceutical was injected at peak stress test, and also at rest. SPECT images were obtained. SPECT myocardial perfusion images were displayed in short axis, horizontal long axis, and vertical long axis views. Gated images were reviewed using [employer] software. COMPARISON: None. CARDIAC STRESS: A pharmacologic stress test was performed under the supervision of an attending staff, using an infusion of lexiscan 0.4mg IV X1. Hemodynamic data: There is normal blood pressure and heart rate response to pharmacologic stress. Symptoms: The patient denied anginal chest pain. Aminophylline: none EKG: No diagnostic changes of ischemia; rare PVCs during the study. FINDINGS: Raw data: There is good myocardial uptake of radiotracer. No significant motion artifacts. Usgw-lf-jgshw ratio is 0.16 (normal is less than 0.38 for tetrafosmin tracer). Left ventricle function: Gated images demonstrate normal left ventricular wall thickening. No segmental wall motion abnormalities. No transient ischemic dilation; TID is 0.94 (normal less than 1.3). Left ventricle resting end diastolic volume is 92 mL. Left ventricle stress ejection fraction is 72%; normal range is above 45%. Myocardial perfusion: Fixed moderately intense defect in the inferior wall that resolves with prone imaging, suggesting artifact rather than true prior infarction. No ischemia. IMPRESSION: Low risk, probably normal pharmaceutical nuclear stress test 1) No perfusion evidence of ischemia or infarction. Fixed moderately intense defect in the inferior wall that resolves with prone imaging, suggesting artifact rather than true prior infarction. No ischemia. 2) Normal left ventricular size, wall motion, and systolic function (EF post stress 72%). 3) No ST changes with lexiscan. 4) No angina during the study. 5) No prior nuclear stress test available for comparison. Dictated by: Lindsay Sandhu MD on 11/22/2021 at 17:12 Approved by: Lindsay Sandhu MD on 11/22/2021 at 17:15
== END ==
PROVIDERS: PCP Nurse Practitioner Acute Care; Referring Provider Nurse Practitioner Acute Care; Visit Provider Nurse Practitioner Acute Care
DX: I11.9 Hypertensive heart disease without heart failure (principal)
CPT/HCPCS: 78452; 93017; A9502; J2785

== ENCOUNTER 2022-10-25 16:34 | Observation (INO) | payer OTHER, SELFPAY ==
[2022-10-25] VITALS (19 sets, daily range): BP systolic 164–229; BP diastolic 76–102; PULSE 75–88; RESP 17–35; TEMP 36.6–36.7; O2SAT 94–97; BMI 29.9; BMI 32.1
--- NOTE | 2022-10-25 16:53 | DI.CT.S_ITS ---
PROCEDURE: CT STROKE INDICATIONS: Positive BE-FAST, Stroke symptoms TECHNIQUE: Noncontrast 4.5 mm thick angled axial sections acquired from the foramen magnum to the vertex, with coronal reformats. For radiation dose reduction, the following was used: automated exposure control, adjustment of mA and/or kV according to patient size. COMPARISON: None. FINDINGS: Image quality: Excellent. CSF spaces: Basal cisterns are patent. No extra-axial fluid collections. The ventricles are symmetric in size and shape. Brain: No intracranial bleeds or masses. There is cerebral volume loss for age, with resultant ventricular and sulcal prominence. There are periventricular and deep white matter chronic small vessel ischemic changes. There is intracranial internal carotid artery atherosclerosis. Skull and face: Calvarium and visualized facial bones appear intact, without suspicious lesions. Sinuses: Visualized sinuses and mastoids are clear. IMPRESSION: 1. CT head without acute intracranial abnormalities or acute calvarial fractures. 2. Age-related senescent changes and sequela of chronic small vessel ischemic disease. Findings were discussed with Dr. Holcomb at 1712 hrs. This study fulfills neurological imaging criteria for inclusion or exclusion of acute stroke therapies based on available published neurological guidelines. Dictated by: Shivam Tomlin M.D. on 10/25/2022 at 17:09 Approved by: Shivam Tomlin M.D. on 10/25/2022 at 17:13
--- NOTE | 2022-10-25 16:53 | DI.RAD.S_ITS ---
PROCEDURE: XR CHEST 1V INDICATIONS: Possible stroke TECHNIQUE: One view of the chest was acquired. COMPARISON: [facility], , CHEST 1 VIEW, 11/10/2011, 19:13. FINDINGS: Surgical changes and devices: None. Lungs and pleura: Lungs are clear. No pleural effusions or pneumothorax. Mediastinum: Mediastinal contours appear normal. Heart size is normal. Bones and chest wall: No suspicious bony lesions. Overlying soft tissues appear unremarkable. IMPRESSION: No acute cardiopulmonary abnormalities or focal airspace disease. Dictated by: Shivam Tomlin M.D. on 10/25/2022 at 17:14 Approved by: Shivam Tomlin M.D. on 10/25/2022 at 17:14
--- NOTE | 2022-10-25 16:57 | DI.CT.S_ITS ---
PROCEDURE: CT ANGIO HEAD AND NECK INDICATIONS: stroke, LNW 1600 TECHNIQUE: After the administration of intravenous contrast, 1 mm thick sections acquired from the aortic arch through the [place] of [place]. Post-contrast 4.5 mm thick sections then re-acquired from the foramen magnum to the vertex. 3-dimensional amjojrm-nsfrnlhiu-aalkhicxxj (MIP) and/or volume rendering reformats were acquired of the central intracranial vasculature and neck separately. For radiation dose reduction, the following was used: automated exposure control, adjustment of mA and/or kV according to patient size. COMPARISON: None. FINDINGS: Image quality: Excellent. BRAIN: CSF spaces: Ventricles are stable in size and shape. Basal cisterns are patent. No extra-axial fluid collections. Brain: No midline shift. No intracranial masses. Parrish-white matter interface appears intact. No suspicious enhancement. Skull and face: Calvarium and facial bones appear intact, without suspicious lesions. Orbits appear normal. Sinuses: Sinuses and mastoids are clear. HEAD CT ANGIOGRAPHY: Anterior circulation: Scattered atherosclerotic calcifications of the intracranial segments of the internal carotid arteries. Intracranial internal carotid arteries appear patent without high-grade stenosis. There is flow/opacification within the paired anterior cerebral arteries. There is opacification within the middle cerebral arteries. The anterior communicating artery is seen. No aneurysms are seen. No occlusion. Posterior circulation: Atherosclerotic calcifications. Visualized portions of the vertebral arteries are patent and join to form a normal appearing basilar artery. No evidence for high-grade stenosis. No occlusions. There is opacification of the posterior cerebral arteries. No aneurysms are seen. NECK CT ANGIOGRAPHY: Carotid system: The great vessels demonstrate a conventional anatomy as they arise from the aortic arch. Atherosclerotic calcifications of the aortic arch are present. The origins of the common carotid arteries appear patent. The common carotid arteries appear patent throughout their visualized courses without high grade stenosis. Moderate atherosclerotic calcifications of the bilateral carotid bifurcations. The bifurcation regions are both patent without high grade stenosis. The internal carotid arteries demonstrate normal calibers and courses. Posterior circulation: Atherosclerotic calcifications are noted. The origins of the vertebral arteries both appear patent without hemodynamically significant stenosis. The more superior extracranial portions of both vertebral arteries also demonstrate normal courses and calibers. They join to form a normal appearing basilar artery. Soft tissues: Visualized neck soft tissues demonstrate no suspicious abnormalities. Bones: No suspicious bony lesions. Visualized cervical spine appears normally aligned. No acute compression fractures of the vertebral bodies. Severe multilevel cervical spondylosis. IMPRESSION: 1. Negative CT angiogram of the intracranial arterial vasculature. Atherosclerotic vascular calcifications without high-grade stenosis. 2. Negative CT angiogram of the neck arterial vasculature. Atherosclerotic vascular calcifications without high-grade stenosis. 3. Severe multilevel cervical spondylosis. No acute osseous abnormalities. 4. Atherosclerosis. 5. Moderate pulmonary emphysematous changes. Any quantitative measurements of stenosis were performed using NASCET criteria. Dictated by: Shivam Tomlin M.D. on 10/25/2022 at 17:36 Approved by: Shivam Tomlin M.D. on 10/25/2022 at 17:45
[2022-10-25 17:15] LABS: Add Manual Diff / Slide Review NO; Basophils Absolute Auto 0 /uL (0-100); Basophils Percent Auto 0.8 % (0-2); Eosinophils Absolute Auto 100 /uL (0-450); Eosinophils Percent Auto 2.3 % (2-4); Hematocrit 41.2 % (36-46); Hemoglobin 13.5 g/dL (12.0-16.0); Lymphocytes Absolute Auto 1800 /uL (1100-4500); Lymphocytes Percent Auto 31.3 % (25-40); Mean Corpuscular HGB Conc 32.7 % (30-36); Mean Corpuscular Hemoglobin 26.7 PG (26-34); Mean Corpuscular Volume 81.5 fL (80-100); Monocytes Absolute Auto 500 /uL (0-900); Monocytes Percent Auto 9.1 % (3-14); Neutrophils Absolute Auto 3300 /uL (1500-7000); Neutrophils Percent Auto 56.5 % (50-75); Platelet Count 266 X10^3/uL (150-400); Red Blood Cell Count 5.05 X10^6/uL (4.0-5.2); Red Cell Distribution Width 14.2 % (11.6-14.8); White Blood Cell Count 5.8 X10^3/uL (4.5-11.0)
[2022-10-25 17:17] LABS: Prothrombin Time 11.2 SECONDS (10.1-12.7)
[2022-10-25 17:19] LABS: PTT Partial Thromboplastin Tim 30 SECONDS (26-36)
[2022-10-25 17:21] LABS: Ammonia (NH3) < 9 umol/L (9-30)
[2022-10-25 17:22] LABS: Alanine Aminotransferase 21 IU/L (<35); Albumin 4.3 g/dL (3.5-5.0); Albumin Globulin Ratio 1.1 (1.0-2.8); Alkaline Phosphatase 53 U/L (38-126); Aspartate Aminotransferase 26 IU/L (14-36); BUN Creatinine Ratio 13.5 (6-22); Bilirubin Total 0.5 mg/dL (0.2-1.3); Blood Urea Nitrogen 14 mg/dL (7-17); Calcium 9.5 mg/dL (8.4-10.2); Carbon Dioxide 33 mmol/L (22-32); Chloride 98 mmol/L (98-107); Creatine Kinase 53 U/L (30-135); Estimated Glomerular Filt Rate 56 mL/min (>60); Glucose 96 mg/dL (80-110); HEMOLYSIS < 15 (0-50); Sodium 137 mmol/L (137-145); Total Protein 8.3 g/dL (6.3-8.2)
--- NOTE | 2022-10-25 17:26 | RT ---
responded to code stroke, airway patent and no distress noted. pt alert and on room air
[2022-10-25 17:33] LABS: Troponin I < 0.012 ng/mL (0.01-0.034)
[2022-10-25 18:04] LABS: COVID19 -Nasal RAPID Negative (Negative)
--- NOTE | 2022-10-25 18:15 | ED_ITS ---
HPI - General Adult General Chief complaint: Altered Mental Status Stated complaint: confusion,crying,vomiting Time Seen by Provider: 10/25/22 17:55 Source: patient and family (Sister) Mode of arrival: Ambulatory History of Present Illness HPI narrative: Patient is a 77-year-old female. History of hypertension and hypothyroidism. She lives with her sister. For her sister's reports he was at her baseline state of health until this afternoon when she stated that she was not feeling very well. She went to go lay down. She woke up a short time later and felt like she was throw up. She went lay back down for short period of time but then when she woke up again she walked out to where her sister was standing. Patient apparently was asking about PET set up been for several years. Was confused. Was not slurring her words. Did not have any balance issues. Patient's sister waited for short period of time and when the symptoms were not improving that decided to come to the emergency department. Here in the emergency department the patient has no specific symptoms although she obviously does not remember why she is here with the events of earlier. She was a code stroke. Was initially evaluated by Dr Holcomb upon arrival. CT scans were ordered. Dr. Holcomb received the results of these and discuss the case with tele stroke in decision is made not to administer tPA. Upon my assumption of care patient was not at baseline per her sister. Her issues were that she was having trouble remembering things was asking same questions over and over again. She still did not know why she was here but had no specific complaints. Related Data Home Medications Medication Instructions Recorded Confirmed conjugated estrogens 0.625 mg 0.625 mg PO QDAY ##0 08/25/11 06/21/21 tablet (Premarin) levothyroxine 88 mcg tablet 0.088 mg PO QDAY ##0 08/25/11 06/21/21 lisinopril 5 mg tablet 5 mg PO QDAY ##0 08/25/11 06/21/21 fluoxetine 20 mg capsule (Prozac) 20 mg PO ONCE 10/23/20 06/21/21 Previous Rx's Medication Instructions Recorded clonidine HCl 0.1 mg tablet 0.1 mg PO BID PRN hypertensive 12/29/20 urgency #60 tabs carvedilol 25 mg tablet 25 mg PO BID #180 tabs 02/20/21 Allergies Allergy/AdvReac Type Severity Reaction Status Date / Time codeine Allergy Mild rash, Verified 10/25/22 16:53 vomiting Review of Systems Review of Systems ROS Unobtainable: All systems reviewed & are unremarkable except as noted in HPI and below Patient History Medical History Cardiac arrhythmia (~1989) Cataracts, bilateral (~2009) Diverticulosis (~2019) Endometriosis (~1966) Fractures Herniated nucleus pulposus, L2-3 History of chickenpox History of measles History of mumps Hypertension (~1964) Hypothyroid Plantar warts Surgical History Anesthesia (~1974) History of cataract surgery (~2019) History of cholecystectomy (~1999) History of hysterectomy (~1974) Hx of hemorrhoidectomy (~1969) Family History Father Hypertension Congestive heart failure Mother Hypertension Congestive heart failure Social History Smoking Status: Former smoker Tobacco: How many years used: 50 quit status: has quit before alcohol intake: current (1 glass champagne per month ) substance use type: marijuana Smoking Status: Former smoker alcohol intake frequency: holidays/special occasions only Substance Use Type: does not use Exam Initial Vital Signs Initial Vital Signs: Vital Signs Temperature 98 F 10/25/22 16:44 Pulse Rate 85 10/25/22 16:44 Respiratory Rate 20 10/25/22 16:44 Blood Pressure 229/102 H 10/25/22 16:44 Pulse Oximetry 97 10/25/22 16:44 Oxygen Delivery Method Room Air 10/25/22 16:44 Const General: cooperative, healthy appearing, comfortable and No ill appearing HENME Head: normal to inspection and normocephalic Face and sinus: normal facial exam Mouth: oral mucosae normal Eyes General: Yes appearance normal, both eyes and all related structures Resp Effort & Inspection: normal respiratory effort Auscultation: clear to auscultation bilaterally Cardio Rate: regular rate Rhythm: regular rhythm GI Inspection: normal to inspection and non-distended Skin General: no rashes or lesions noted Neuro General: patient alert, patient awake and moves all extremities Cranial Nerves: CN's II-XI intact bilaterally Cognition: abnormal cognition (Anterograde amnesia) Speech: speech normal Gait: normal gait Motor: muscle tone normal throughout Sensory Exam: no sensory deficits noted Coordination: [id number] test normal and [id number] test normal Extrem General: normal to inspection and capillary refill normal Psych Appearance: grossly normal and well kempt Scores GCS Deborah coma scale eye opening: Spontaneous Leeds coma scale verbal response: Confused Leeds coma scale motor response: Obey commands Dbeorah coma scale total score: 14 NIH Stroke Scale Level of Conciousness: Alert, keenly responsive Ask month/age: Answers one question correctly, intubated follow commands Open/close eyes, close hand: Performs both tasks correctly Best gaze horizontal: Normal Visual torres: No visual loss Facial palsy: Normal symetrical movement Left arm drift: No drift for full 10 sec Right arm drift: No drift for full 10 sec Left leg drift: No drift for full 5 sec Right leg drift: No drift for full 5 sec Limb ataxia: Absent Sensory on face/arms/legs: Normal, no sensory loss Best language: No aphasia, normal Dysarthria: Normal Extinction or inattention: No abnormality Total NIH Stroke scale score: 1 Course Orders Ordered: ED Orders 10/25/22 16:53 CT Stroke Stat XR chest 1V Stat 10/25/22 16:57 CT angio head and neck Stat 10/25/22 17:00 Ammonia (NH3) Stat Complete Blood Count AUTO DIFF Stat Comprehensive Metabolic Panel Stat Free T3, Triiodothyronine Free Stat Free T4, Direct Thyroxine Stat Magnesium Stat PTT Partial Thromboplastin Feliberto Stat Prothrombin Time INR Stat TSH [Thyroid Stimulating Hormone] Stat Troponin & CK Cardiac Panel Stat 10/25/22 17:17 EKG-12 Lead Stat 10/25/22 17:40 COVID19 -Nasal RAPID Stat Ondansetron HCl (Ondansetron 4 Mg Odt) 4 mg SL NOW PRN PRN Reason: Nausea And Vomiting Ondansetron HCl (Ondansetron 4 Mg/2 Ml Inj) 4 mg IV NOW PRN PRN Reason: Nausea And Vomiting Discontinued Medications Aspirin (Aspirin 81 Mg Chew Tab) 324 mg PO NOW ONE Stop: 10/25/22 18:25 Last Admin: 10/25/22 18:36 Dose: 324 mg Documented By: AMU Clopidogrel Bisulfate (Clopidogrel 75 Mg Tablet) 300 mg PO NOW ONE Stop: 10/25/22 18:25 Last Admin: 10/25/22 18:36 Dose: 300 mg Documented By: AMU Vital Signs Vital signs: Vital Signs - 8 hr 10/25/22 16:44 10/25/22 17:16 10/25/22 17:22 Temperature 98 F Pulse Rate 85 88 83 Respiratory Rate 20 17 Blood Pressure 229/102 H Pulse Oximetry 97 96 96 Oxygen Delivery Method Room Air Room Air 10/25/22 17:22 10/25/22 17:30 10/25/22 17:30 Temperature Pulse Rate 79 Respiratory Rate 20 Blood Pressure 209/92 H 167/76 H Pulse Oximetry 95 Oxygen Delivery Method Room Air 10/25/22 17:45 10/25/22 18:00 10/25/22 18:00 Temperature Pulse Rate 75 80 Respiratory Rate 29 H 31 H Blood Pressure 176/85 H Pulse Oximetry 96 96 Oxygen Delivery Method 10/25/22 18:15 10/25/22 18:30 10/25/22 18:30 Temperature Pulse Rate 81 79 Respiratory Rate 32 H 30 H Blood Pressure 164/77 H Pulse Oximetry 95 96 Oxygen Delivery Method 10/25/22 18:45 10/25/22 19:00 10/25/22 19:00 Temperature Pulse Rate 76 76 Respiratory Rate 25 H 25 H Blood Pressure 169/77 H Pulse Oximetry 96 96 Oxygen Delivery Method 10/25/22 19:15 Temperature Pulse Rate 77 Respiratory Rate Blood Pressure Pulse Oximetry 95 Oxygen Delivery Method Medical Decision Making Lab Data Lab results reviewed: Yes I reviewed the patient's lab results. 10/25/22 17:00 10/25/22 17:00 Labs: Lab Results 10/25/22 10/25/22 10/25/22 Range/Units 17:00 17:00 17:00 WBC 5.8 (4.5-11.0) X10^3/uL RBC 5.05 (4.0-5.2) X10^6/uL Hgb 13.5 (12.0-16.0) g/dL Hct 41.2 (36-46) % MCV 81.5 (80-100) fL MCH 26.7 (26-34) PG MCHC 32.7 (30-36) % RDW 14.2 (11.6-14.8) % Plt Count 266 (150-400) X10^3/uL Neut % (Auto) 56.5 (50-75) % Lymph % (Auto) 31.3 (25-40) % [place] % (Auto) 9.1 (3-14) % Eos % (Auto) 2.3 (2-4) % Baso % (Auto) 0.8 (0-2) % Neut # (Auto) 3300 (4520-3730) /uL Lymph # (Auto) 1800 (0278-2280) /uL [place] # (Auto) 500 (0-900) /uL Eos # (Auto) 100 (0-450) /uL Baso # (Auto) 0 (0-100) /uL PT 11.2 (10.1-12.7) SECONDS INR 1.0 (0.9-1.3) APTT 30 (26-36) SECONDS Sodium 137 (137-145) mmol/L Potassium 4.0 (3.4-5.1) mmol/L Chloride 98 (98-107) mmol/L Carbon Dioxide 33 H (22-32) mmol/L BUN 14 (7-17) mg/dL Creatinine 1.04 (0.52-1.04) mg/dL Estimated GFR 56 L (>60) mL/min BUN/Creatinine Ratio 13.5 (6-22) Glucose 96 (80-110) mg/dL Calcium 9.5 (8.4-10.2) mg/dL Magnesium 2.0 (1.6-2.3) mg/dL Total Bilirubin 0.5 (0.2-1.3) mg/dL AST 26 (14-36) IU/L ALT 21 (<35) IU/L Alkaline Phosphatase 53 (38-126) U/L Ammonia (9-30) umol/L Total Creatine Kinase 53 (30-135) U/L CK-MB (CK-2) TNP CK-MB (CK-2) Rel Index TNP Troponin I < 0.012 (0.01-0.034) ng/mL Total Protein 8.3 H (6.3-8.2) g/dL Albumin 4.3 (3.5-5.0) g/dL Globulin 4.0 (1.7-4.1) g/dL Albumin/Globulin Ratio 1.1 (1.0-2.8) TSH (0.47-4.68) uIU/mL Free T4 (0.78-2.19) ng/dL Free T3 (2.77-5.27) pg/mL SARS-CoV-2 (PCR) (Negative) 10/25/22 10/25/22 10/25/22 Range/Units 17:00 17:00 17:00 WBC (4.5-11.0) X10^3/uL RBC (4.0-5.2) X10^6/uL Hgb (12.0-16.0) g/dL Hct (36-46) % MCV (80-100) fL MCH (26-34) PG MCHC (30-36) % RDW (11.6-14.8) % Plt Count (150-400) X10^3/uL Neut % (Auto) (50-75) % Lymph % (Auto) (25-40) % Redwood % (Auto) (3-14) % Eos % (Auto) (2-4) % Baso % (Auto) (0-2) % Neut # (Auto) (0554-5751) /uL Lymph # (Auto) (5658-7158) /uL Redwood # (Auto) (0-900) /uL Eos # (Auto) (0-450) /uL Baso # (Auto) (0-100) /uL PT (10.1-12.7) SECONDS INR (0.9-1.3) APTT (26-36) SECONDS Sodium (137-145) mmol/L Potassium (3.4-5.1) mmol/L Chloride (98-107) mmol/L Carbon Dioxide (22-32) mmol/L BUN (7-17) mg/dL Creatinine (0.52-1.04) mg/dL Estimated GFR (>60) mL/min BUN/Creatinine Ratio (6-22) Glucose (80-110) mg/dL Calcium (8.4-10.2) mg/dL Magnesium (1.6-2.3) mg/dL Total Bilirubin (0.2-1.3) mg/dL AST (14-36) IU/L ALT (<35) IU/L Alkaline Phosphatase (38-126) U/L Ammonia < 9 L (9-30) umol/L Total Creatine Kinase (30-135) U/L CK-MB (CK-2) CK-MB (CK-2) Rel Index Troponin I (0.01-0.034) ng/mL Total Protein (6.3-8.2) g/dL Albumin (3.5-5.0) g/dL Globulin (1.7-4.1) g/dL Albumin/Globulin Ratio (1.0-2.8) TSH 0.131 L (0.47-4.68) uIU/mL Free T4 1.06 (0.78-2.19) ng/dL Free T3 2.80 (2.77-5.27) pg/mL SARS-CoV-2 (PCR) (Negative) 10/25/22 Range/Units 17:40 WBC (4.5-11.0) X10^3/uL RBC (4.0-5.2) X10^6/uL Hgb (12.0-16.0) g/dL Hct (36-46) % MCV (80-100) fL MCH (26-34) PG MCHC (30-36) % RDW (11.6-14.8) % Plt Count (150-400) X10^3/uL Neut % (Auto) (50-75) % Lymph % (Auto) (25-40) % Redwood % (Auto) (3-14) % Eos % (Auto) (2-4) % Baso % (Auto) (0-2) % Neut # (Auto) (2328-4645) /uL Lymph # (Auto) (5790-6350) /uL Redwood # (Auto) (0-900) /uL Eos # (Auto) (0-450) /uL Baso # (Auto) (0-100) /uL PT (10.1-12.7) SECONDS INR (0.9-1.3) APTT (26-36) SECONDS Sodium (137-145) mmol/L Potassium (3.4-5.1) mmol/L Chloride (98-107) mmol/L Carbon Dioxide (22-32) mmol/L BUN (7-17) mg/dL Creatinine (0.52-1.04) mg/dL Estimated GFR (>60) mL/min BUN/Creatinine Ratio (6-22) Glucose (80-110) mg/dL Calcium (8.4-10.2) mg/dL Magnesium (1.6-2.3) mg/dL Total Bilirubin (0.2-1.3) mg/dL AST (14-36) IU/L ALT (<35) IU/L Alkaline Phosphatase (38-126) U/L Ammonia (9-30) umol/L Total Creatine Kinase (30-135) U/L CK-MB (CK-2) CK-MB (CK-2) Rel Index Troponin I (0.01-0.034) ng/mL Total Protein (6.3-8.2) g/dL Albumin (3.5-5.0) g/dL Globulin (1.7-4.1) g/dL Albumin/Globulin Ratio (1.0-2.8) TSH (0.47-4.68) uIU/mL Free T4 (0.78-2.19) ng/dL Free T3 (2.77-5.27) pg/mL SARS-CoV-2 (PCR) Negative (Negative) Point of Care Testing Glucose POC 97 Urine Dip Bedside Urine Glucose Negative Bedside Urine Bilirubin - Negative Bedside Urine Ketone - Negative Urine Specific [place] 1.01 Bedside Urine Occult Blood - Negative Bedside Urine pH 6.5 Bedside Urine Protein - Negative Bedside Urine Urobilinogen - Negative Bedside Urine Nitrite - Negative Bedside Urine Leukocytes - Negative Esterase Point of care testing: Point of Care Testing Glucose POC 97 Urine Dip Bedside Urine Glucose Negative Bedside Urine Bilirubin - Negative Bedside Urine Ketone - Negative Urine Specific [place] 1.01 Bedside Urine Occult Blood - Negative Bedside Urine pH 6.5 Bedside Urine Protein - Negative Bedside Urine Urobilinogen - Negative Bedside Urine Nitrite - Negative Bedside Urine Leukocytes - Negative Esterase Imaging Data CT scan - head: Radiologist's Impression: PROCEDURE:? CT STROKE ? INDICATIONS:? Positive BE-FAST, Stroke symptoms ? TECHNIQUE:? Noncontrast 4.5 mm thick angled axial sections acquired from the foramen magnum to the vertex, with coronal reformats.? For radiation dose reduction, the following was used:? automated exposure control, adjustment of mA and/or kV according to patient size.? ? COMPARISON:? None. ? FINDINGS:? Image quality:? Excellent.? ? CSF spaces:? Basal cisterns are patent.? No extra-axial fluid collections.? The ventricles are symmetric in size and shape.? ? Brain:? No intracranial bleeds or masses.? There is cerebral volume loss for age, with resultant ventricular and sulcal prominence.? There are periventricular and deep white matter chronic small vessel ischemic changes.? There is intracranial internal carotid artery atherosclerosis.? ? Skull and face:? Calvarium and visualized facial bones appear intact, without suspicious lesions.? ? Sinuses:? Visualized sinuses and mastoids are clear.? ? IMPRESSION:? 1. CT head without acute intracranial abnormalities or acute calvarial fractures. ? 2. Age-related senescent changes and sequela of chronic small vessel ischemic disease. ? Findings were discussed with Dr. Holcomb at 1712 hrs. ? ? This study fulfills neurological imaging criteria for inclusion or exclusion of acute stroke therapies based on available published neurological guidelines. Chest x-ray: Radiologist's Impression: PROCEDURE:? XR CHEST 1V ? INDICATIONS:? Possible stroke ? TECHNIQUE:? One view of the chest was acquired.? ? COMPARISON:? [facility], , CHEST 1 VIEW, 11/10/2011, 19:13. ? FINDINGS:? ? Surgical changes and devices:? None.? ? Lungs and pleura:? Lungs are clear.? No pleural effusions or pneumothorax.? ? Mediastinum:? Mediastinal contours appear normal.? Heart size is normal.? ? Bones and chest wall:? No suspicious bony lesions.? Overlying soft tissues appear unremarkable.? ? IMPRESSION:? No acute cardiopulmonary abnormalities or focal airspace disease. CTA - brain/neck: Radiologist's Impression: PROCEDURE:? CT ANGIO HEAD AND NECK ? INDICATIONS:? stroke, LNW 1600 ? TECHNIQUE:? ? After the administration of intravenous contrast, 1 mm thick sections acquired from the aortic arch through the [place] of [place].? Post-contrast 4.5 mm thick sections then re-acquired from the foramen magnum to the vertex.? 3-dimensional tmwlpms-gwagctixd-xvypfyukuj (MIP) and/or volume rendering reformats were acquired of the central intracranial vasculature and neck separately. For radiation dose reduction, the following was used:? automated exposure control, adjustment of mA and/or kV according to patient size.? ? COMPARISON:? None. ? FINDINGS: ? Image quality:? Excellent.? ? BRAIN:? CSF spaces:? Ventricles are stable in size and shape.? Basal cisterns are patent.? No extra-axial fluid collections.? ? ? Brain:? No midline shift.? No intracranial masses.? Parrish-white matter interface appears intact.? No suspicious enhancement.? ? Skull and face:? Calvarium and facial bones appear intact, without suspicious lesions.? Orbits appear normal.? ? ? Sinuses:? Sinuses and mastoids are clear.? ? HEAD CT ANGIOGRAPHY:? Anterior circulation:? Scattered atherosclerotic calcifications of the in tracranial segments of the internal carotid arteries.? Intracranial internal carotid arteries appear patent without high-grade stenosis. There is flow/opacification within the paired anterior cerebral arteries.? There is opacification within the middle cerebral arteries.? The anterior communicating artery is seen.? No aneurysms are seen. No occlusion.? ? Posterior circulation:? Atherosclerotic calcifications.? Visualized portions of the vertebral arteries are patent and join to form a normal appearing basilar artery.? No evidence for high-grade stenosis. No occlusions. There is opacification of the posterior cerebral arteries.? No aneurysms are seen.? ? NECK CT ANGIOGRAPHY:? Carotid system:? The great vessels demonstrate a conventional anatomy as they arise from the aortic arch.? Atherosclerotic calcifications of the aortic arch are present.? The origins of the common carotid arteries appear patent. The common carotid arteries appear patent throughout their visualized courses without high grade stenosis.? Moderate atherosclerotic calcifications of the bilateral carotid bifurcations.? The bifurcation regions are both patent without high grade stenosis.? ? The internal carotid arteries demonstrate normal calibers and courses.? ? Posterior circulation:? Atherosclerotic calcifications are noted.? The origins of the vertebral arteries both appear patent without hemodynamically significant stenosis.? The more superior extracranial portions of both vertebral arteries also demonstrate normal courses and calibers.? They join to form a normal appearing basilar artery. ? ? ? Soft tissues:? Visualized neck soft tissues demonstrate no suspicious abnormalities.? ? Bones:? No suspicious bony lesions.? Visualized cervical spine appears normally aligned.? No acute compression fractures of the vertebral bodies.? Severe multilevel cervical spondylosis.? ? IMPRESSION:? ? 1. Negative CT angiogram of the intracranial arterial vasculature.? Atherosclerotic vascular calcifications without high-grade stenosis. ? 2. Negative CT angiogram of the neck arterial vasculature.? Atherosclerotic v ascular calcifications without high-grade stenosis. ? 3. Severe multilevel cervical spondylosis.? No acute osseous abnormalities. ? 4. Atherosclerosis. ? 5. Moderate pulmonary emphysematous changes. ? ? Any quantitative measurements of stenosis were performed using NASCET criteria.? ECG Data Interpretation: Sinus rhythm Ventricular rate of 86 Normal axis LVH No ST T wave changes MDM Narrative Medical decision making narrative: Hypertensive upon arrival but this improved without specific intervention here in the ER. CT scans relatively unremarkable. Patient seems to be unable to form new memories and she can not remember the events that led her here to the emergency department but she does know her name and her date and her sister's name. She does seem to ask the same question over and over again which is indicative that she is having difficulty forming new memories. She also can not remember the objects that I asked her to remember off the NIH card. She was able to name them initially but can not remember what these names were. Patient's TSH was low. Free T3 and free T4 were ordered. Given the patient's presenting symptoms she does require admission to the hospital for further evaluation and treatment. Was given aspirin/Plavix. Dr. Holcomb who initially evaluated the patient prior to my arrival discuss the case with the stroke neurologist in the decision was made not to administer tPA which I agree with based on her exam. I did discuss the need for admission with the patient and her sister at bedside. Discussed the case with GARFIELD Watkins the [facility] provider who will admit for further evaluation and treatment. Discharge Plan Departure Patient Disposition: Admitted as Observation Clinical Impression: Anterograde amnesia Admit Date/Time: 10/25/22 19:44 Admit Provider: Radha Watkins
[2022-10-25] MEDS: CLOPIDOGREL 75 MG TABLET 300 MG PO (18:36)
[2022-10-25] MEDS: ASPIRIN 81 MG CHEW TAB 324 MG PO (18:36)
[2022-10-25 19:21] LABS: Thyroid Stimulating Hormone 0.131 uIU/mL (0.47-4.68)
[2022-10-25 20:01] LABS: Free T4, Direct Thyroxine 1.06 ng/dL (0.78-2.19)
--- NOTE | 2022-10-25 20:42 | DI.MRI.S_ITS ---
PROCEDURE: MR HEAD/BRAIN WO CON INDICATIONS: Anterograde amensia vs TIA, HTN urg TECHNIQUE: Noncontrast axial T1 spin echo, axial T2 fast spin echo, sagittal and axial FLAIR, coronal T2 fast spin echo, axial gradient echo, axial diffusion and ADC through the brain. COMPARISON: None. FINDINGS: Image quality: Excellent. CSF Spaces: Basal cisterns are patent. No extra-axial fluid collections. Ventricles are normal in size and shape. Brain: No intracranial masses or hemorrhage. Parrish/white matter interface is normal. Brainstem appears normal. Diffusion-weighted sequence is unremarkable without evidence of acute infarct. Normal intravascular flow voids are present. Skull and face: Calvarium has normal marrow signal. Orbits appear normal. Sinuses: Sinuses and mastoids are clear. IMPRESSION: Unremarkable MRI brain without acute infarct, hemorrhage or mass lesion Approved by: Humberto Thomas M.D. on 10/26/2022 at 12:09
--- NOTE | 2022-10-25 20:44 | DI.ECHO.S_ITS ---
[place] [facility] +---------+ : : [address] : : : : [id number] : : : : Phone: [phone]+ Echocardiogram Report + + :Name: LEANNA HAMM Study Date: 10/26/2022 Height: 65 in : :[facility] ReadingLocation: Weight: 180 lb : : Gender: Female BSA: 1.9 m2 : :: 1945 Age: 77 yrs BP: 132/60 mmHg: :Reason For Study: TIA, HYPERTENSION : :Ordering Physician: ARUN, : :EM Performed By: Sabrina Peralta : :Referring: EM DIAS : + + Interpretation Summary The left ventricle is normal in size. The left ventricle is hyperdynamic. The ejection fraction is estimated to be 70-75%. Previous LVEF 55 to 60%. The right ventricle is normal in size and function. There is mild aortic regurgitation. Compared to the prior echo study, there has been no change in the severity of aortic regurgitation. There is mild luminal irregularity and echogenicity in the abdominal aorta, suggestive of aortic atherosclerotic disease. Mild atherosclerotic plaque(s) in the aortic arch. The IVC is of normal diameter and collapses greater than 50% with a sniff. This suggests a low right atrial pressure of 3 mm Hg. Procedure: A two-dimensional transthoracic echocardiogram with color flow and Doppler was performed. The study quality was technically difficult. Comparison is made with the echocardiogram of 08/27/2021. The patient was in sinus rhythm with heart rates between 74-80 bpm during the exam. Left Ventricle: The left ventricle is normal in size. Proximal septal thickening is noted. There is no echo evidence for significant left ventricular outflow tract obstruction. There is no thrombus. The ejection fraction is estimated to be 70-75%. The left ventricle is hyperdynamic. There are no focal wall motion abnormalities. Diastolic parameters suggest a relaxation abnormality of the left ventricle, consistent with probable normal filling pressures. Right Ventricle: The right ventricle is normal in size and function. Atria: The left atrial size is normal. There has been no significant change since the previous study. Right atrial size is normal. There is no Doppler evidence for an interatrial shunt. Mitral Valve: The mitral valve is normal in structure and function. There is trace mitral regurgitation. Aortic Valve: The aortic valve is trileaflet. The aortic valve is mildly calcified. Slightly reduced excursion of left coronary cusp. Overall no significant aortic stenosis seen. There is discrete nodular thickening of the left coronary cusp. There is mild aortic regurgitation. Compared to the prior echo study, there has been no change in the severity of aortic regurgitation. Tricuspid Valve: The tricuspid valve is normal in structure and function. There is trace tricuspid regurgitation. Pulmonary artery pressures cannot be estimated because of the lack of a measurable TR jet velocity. Pulmonic Valve: The pulmonic valve is not well visualized. Great Vessels: The aortic root is normal size. The ascending aorta could not be visualized. There is mild luminal irregularity and echogenicity in the abdominal aorta, suggestive of aortic atherosclerotic disease. Mild atherosclerotic plaque(s) in the aortic arch. The IVC is of normal diameter and collapses greater than 50% with a sniff. This suggests a low right atrial pressure of 3 mm Hg. Pericardium/ Pleura There is no pericardial effusion. There is no pleural effusion. MMode/2D Measurements & Calculations LVIDd: 4.9 cm LVOT diam: 2.2 cm LVIDs: 3.0 cm Ao root diam: 3.1 cm FS: 37.6 % Ao Arch Diam (Prox Trans): 3.6 cm IVSd: 1.0 cm LVPWd: 1.0 cm LV nathan. diameter/BSA (cm/m^2): 2.6 LV sys. diameter/BSA (cm/m^2): 1.6 LA A2 area: 16.6 cm2 RA long axis: 4.7 cm LA A4 area: 12.3 cm2 RA area: 12.2 cm2 LA length (vol): 4.3 cm RA vol: 26.7 ml LA vol: 40.1 ml RA : 14.1 ml/m2 LA vol index: 21.2 ml/m2 IVC diam: 1.4 cm RVD1 (basal): 2.7 cm RVD2 (mid): 2.7 cm TAPSE: 1.7 cm Doppler Measurements & Calculations Ao V2 max: 148.1 cm/sec LVOT Max Tim: 104.7 cm/sec Ao V2 mean: 93.2 cm/sec LV V1 max P.4 mmHg Ao max P.8 mmHg LV V1 VTI: 20.4 cm Ao mean P.0 mmHg FRANCK(I,D): 3.0 cm2 Ao V2 VTI: 25.9 cm FRANCK(V,D): 2.7 cm2 sev ratio: 0.79 FRANCK indexed to BSA (cm^2/m^2): 1.6 MV E max tim: 55.2 cm/sec PA V2 max: 73.9 cm/sec MV A max tim: 82.1 cm/sec PA V2 mean: 54.4 cm/sec MV E/A: 0.67 PA mean P.3 mmHg Med Peak E' Tim: 7.8 cm/sec E/E' med: 7.1 Lat Peak E' Tim: 8.6 cm/sec E/E' lat: 6.4 E/e' average: 6.7 MV dec time: 0.28 sec SV(LVOT): 78.2 ml Reading Physician:03:51 PM
--- NOTE | 2022-10-25 20:52 | P.HP_ITS ---
History of Present Illness History of Present Illness Date Patient Seen: 10/25/22 Time Patient Seen: 20:52 Chief complaint: confusion,crying,vomiting Narrative: Uzma Wells is a 77-year-old female with a history of hypertension, cardiac arrhythmia hypothyroidism, depression, was brought into the ED by her sister whom she lives with who found that when the patient woke up this afternoon she was confused as to place and time, alert only to name, has difficulty forming new memories. Here in the emergency department the patient has no specific symptoms although she obviously does not remember why she is here with the events of earlier. Dr. Holcomb discussed the case with tele stroke in decision is made not to administer tPA.? Patient's level of cognitive function is still not at baseline per her sister (in ED). Patient did have hypertensive urgency in ED 209/92, 212/90, 229/102 On admit patient continues to have no recall of events in the ED, is able to recall what her sister told her about earlier in the day her name and where she is at and the name of her nurse. ROS may be inaccurate due to amnesia/recall. Denies chest pain, shortness in breath, headache, changes in vision, difficulty swallowing, speech impairment, weakness, numbness, tingling, difficulty with ambulation, recent falls, head injury, LOC, fever, body aches, chills, cough, recent exposure to illness, abdominal pain, nausea, vomiting, urinary incontinence/retention, dysuria, frequency, urgency, hematuria, bowel changes, constipation, incontinence, melena, rashes, recent changes to medication, illness, injury, or trauma. On admit temp 98?, BP 169/77, HR 77, R are 22, O2 saturation 95% on room air. Patient's CBC CMP and liver panel are all unremarkable, ammonia is negative, COVID negative, bedside swallow negative, NIH: 1, TSH is low 0.131, T4 and T3 are normal, EKG sinus rhythm rate of [address] or T-wave changes, head and neck CTA is negative for any acute intracranial process, chest x-ray negative, head CT negative. Patient admitted for TIA versus stroke versus amnesia, and hypertensive urgency. [facility] Medical History Cardiac arrhythmia (~1989) Cataracts, bilateral (~2009) Diverticulosis (~2019) Endometriosis (~1966) Fractures Herniated nucleus pulposus, L2-3 History of chickenpox History of measles History of mumps Hypertension (~1964) Hypothyroid Plantar warts Surgical History Anesthesia (~1974) History of cataract surgery (~2019) History of cholecystectomy (~1999) History of hysterectomy (~1974) Hx of hemorrhoidectomy (~1969) Family History Father Hypertension Congestive heart failure Mother Hypertension Congestive heart failure Social History household members: family Smoking Status: Former smoker Tobacco: How many years used: 50 quit status: has quit before alcohol intake: current substance use type: marijuana Meds Home Medications and Allergies Home Medications Medication Instructions Recorded Confirmed Type conjugated estrogens 0.625 mg 0.625 mg PO QDAY ##0 08/25/11 10/25/22 History tablet (Premarin) levothyroxine 88 mcg tablet 75 mcg PO QDAY ##0 08/25/11 10/26/22 History lisinopril 5 mg tablet 5 mg PO QDAY ##0 08/25/11 10/25/22 History fluoxetine 20 mg capsule (Prozac) 20 mg PO ONCE 10/23/20 10/25/22 History carvedilol 25 mg tablet 25 mg PO BID #180 tabs 02/20/21 10/26/22 Rx semaglutide (weight loss) 0.5 0.5 mg SUBCUT QWEEK 10/26/22 10/26/22 History mg/0.5 mL subcutaneous pen injector (Wegovy) Allergies Allergy/AdvReac Type Severity Reaction Status Date / Time codeine Allergy Mild rash, Verified 10/25/22 16:53 vomiting Review of Systems Review of Systems Narrative: All 12 point systems reviewed with the patient and are negative except otherwise documented. Exam Vital Signs (past 8 hours): - 10/25/22 16:44 10/25/22 17:16 10/25/22 17:22 Temperature 98 F Pulse Rate 85 88 83 Respiratory Rate 20 17 Blood Pressure 229/102 H Pulse Oximetry 97 96 96 Oxygen Delivery Method Room Air Room Air 10/25/22 17:22 10/25/22 17:30 10/25/22 17:30 Temperature Pulse Rate 79 Respiratory Rate 20 Blood Pressure 209/92 H 167/76 H Pulse Oximetry 95 Oxygen Delivery Method Room Air 10/25/22 17:45 10/25/22 18:00 10/25/22 18:00 Temperature Pulse Rate 75 80 Respiratory Rate 29 H 31 H Blood Pressure 176/85 H Pulse Oximetry 96 96 Oxygen Delivery Method 10/25/22 18:15 10/25/22 18:30 10/25/22 18:30 Temperature Pulse Rate 81 79 Respiratory Rate 32 H 30 H Blood Pressure 164/77 H Pulse Oximetry 95 96 Oxygen Delivery Method 10/25/22 18:45 10/25/22 19:00 10/25/22 19:00 Temperature Pulse Rate 76 76 Respiratory Rate 25 H 25 H Blood Pressure 169/77 H Pulse Oximetry 96 96 Oxygen Delivery Method 10/25/22 19:15 Temperature Pulse Rate 77 Respiratory Rate Blood Pressure Pulse Oximetry 95 Oxygen Delivery Method Oxygen Delivery Method Room Air Narrative Exam Narrative: General: Patient is a well-developed, well-nourished in no distress at this time. HEENT: Normocephalic, atraumatic, extraocular muscles intact, oral pharynx is clear and mucous membranes are moist. Neck is supple and symmetric, trachea is midline, no adenopathy, no thyroid enlargement, nontender, no masses palpated. Negative for JVD Chest: Normal AP diameter and contour without kyphoscoliosis, no nasal flaring, retractions, or tachypneic labored Lungs: Auscultation of all lung torres are clear without adventitious sounds, wheezes, rhonchi, or rales. Cardio: S1 & S2 with regular rate and rhythm without murmur, rubs, or gallops, no carotid bruit, no cardiac pulsations present. Abdomen: Soft nontender, negative for organomegaly, or masses. Bowel sounds are present in all 4 quadrants without guarding or rebound, no CVA tenderness. Musculoskeletal: Muscle strength and tone are equal within normal limits, no deformity, crepitus, effusions, cyanosis, clubbing or edema present. Full range of motion intact radial and pedal pulses are normal. Skin: Warm dry and intact without rashes, ulcerations or petechiae. Neuro: Alert and orientated x3, strength is +5/5 in all extremities, sensation to touch intact, no gross deficits noted of cranial nerves. Psych: Patient has a well-kept appearance, appropriate affect, although patient continues to have lapses in memory able to recall what her sister reported to her regarding the episode today but unable to recall her time in the emergency department, and is still slightly confused, appears to have difficulty proce ssing information. Objective Labs 10/25/22 21:25 10/25/22 17:00 Labs: Laboratory Results - last 24 hr 10/25/22 10/25/22 10/25/22 17:00 17:00 17:00 WBC 5.8 RBC 5.05 Hgb 13.5 Hct 41.2 MCV 81.5 MCH 26.7 MCHC 32.7 RDW 14.2 Plt Count 266 Neut % (Auto) 56.5 Lymph % (Auto) 31.3 Hartley % (Auto) 9.1 Eos % (Auto) 2.3 Baso % (Auto) 0.8 Neut # (Auto) 3300 Lymph # (Auto) 1800 Hartley # (Auto) 500 Eos # (Auto) 100 Baso # (Auto) 0 PT 11.2 INR 1.0 APTT 30 Sodium 137 Potassium 4.0 Chloride 98 Carbon Dioxide 33 H BUN 14 Creatinine 1.04 Estimated GFR 56 L BUN/Creatinine Ratio 13.5 Glucose 96 Calcium 9.5 Magnesium 2.0 Total Bilirubin 0.5 AST 26 ALT 21 Alkaline Phosphatase 53 Ammonia Total Creatine Kinase 53 CK-MB (CK-2) TNP CK-MB (CK-2) Rel Index TNP Troponin I < 0.012 Total Protein 8.3 H Albumin 4.3 Globulin 4.0 Albumin/Globulin Ratio 1.1 TSH Free T4 Free T3 SARS-CoV-2 (PCR) 10/25/22 10/25/22 10/25/22 17:00 17:00 17:00 WBC RBC Hgb Hct MCV MCH MCHC RDW Plt Count Neut % (Auto) Lymph % (Auto) Hartley % (Auto) Eos % (Auto) Baso % (Auto) Neut # (Auto) Lymph # (Auto) Hartley # (Auto) Eos # (Auto) Baso # (Auto) PT INR APTT Sodium Potassium Chloride Carbon Dioxide BUN Creatinine Estimated GFR BUN/Creatinine Ratio Glucose Calcium Magnesium Total Bilirubin AST ALT Alkaline Phosphatase Ammonia < 9 L Total Creatine Kinase CK-MB (CK-2) CK-MB (CK-2) Rel Index Troponin I Total Protein Albumin Globulin Albumin/Globulin Ratio TSH 0.131 L Free T4 1.06 Free T3 2.80 SARS-CoV-2 (PCR) 10/25/22 17:40 WBC RBC Hgb Hct MCV MCH MCHC RDW Plt Count Neut % (Auto) Lymph % (Auto) Hartley % (Auto) Eos % (Auto) Baso % (Auto) Neut # (Auto) Lymph # (Auto) Hartley # (Auto) Eos # (Auto) Baso # (Auto) PT INR APTT Sodium Potassium Chloride Carbon Dioxide BUN Creatinine Estimated GFR BUN/Creatinine Ratio Glucose Calcium Magnesium Total Bilirubin AST ALT Alkaline Phosphatase Ammonia Total Creatine Kinase CK-MB (CK-2) CK-MB (CK-2) Rel Index Troponin I Total Protein Albumin Globulin Albumin/Globulin Ratio TSH Free T4 Free T3 SARS-CoV-2 (PCR) Negative Assessment & Plan Assessment & Plan narrative: Uzma Wells is a 77-year-old female with a history of hypertension, cardiac arrhythmia hypothyroidism, depression, was brought into the ED by her sister for acute onset confusion. Patient admitted for TIA, cognitive impairment, and hypertensive urgency. 1. TIA vs v strokes antegrade amnesia vs total global amnesia, acute, present on admission -admit patient continues to have no recall of events in the ED, is able to recall what her sister told her about earlier in the day her name and where she is at and the name of her nurse. -NIH: 1 -head and neck CTA is negative for any acute intracranial process -patient placed on Plavix, ASA, Lipitor -MRI ordered for tomorrow -patient admitted under TIA protocol -strict fall precautions 2. Hypertensive urgency in the setting of essential hypertension, acute on chronic, present on admission -ED 209/92, 212/90, 229/102 -admit BP 169/77 -EKG sinus rhythm rate of [address] or T-wave changes -echo ordered for tomorrow -continue lisinopril, carvedilol -placed on tele 3. Hypothyroidism, chronic, present on admission -TSH 0.131, decreased patient's dosage from 75 mcg to 50 mcg -patient to follow up with PCP repeat TSH in 6 weeks 4. Depression, chronic, present on admission -holding fluoxetine due to possible interaction with Plavix 5. Hormone replacement therapy, chronic, present on admission -holding Premarin due to possible interaction with Plavix 6. Obesity, mild, acute on chronic, present on admission -BMI 32.1 -hold semaglutide-possible medication reaction -dietary consult ordered regarding nutritional education and information for dietary, lifestyle, exercise, and weight changes. -the patient is at much higher risk for medical and surgical complications due to obesity as it relates to chronic illnesses:, and acute illness. The patient's obesity increases the difficulty and complexity of medical and/or surgical interventions, management and increases the chances of poor outcome such as morbidity and mortality as well as impaired wound healing. Code status: Full Surrogate decision maker: Nieves Wells sister COVID PCR: Negative DVT/VTE prophylaxis: Lovenox and SCDs Disposition: Patient admitted for observation expected length of stay less than 2 midnights. I have utilized all available immediate resources to obtain, update, or review the patient's current medications. I confirmed that the patient's advanced care plan is present, Code status is documented and/or surrogate decision maker is listed in the patient's medical record. I have personally reviewed patient's chart notes from PCP, specialists, di agnostic imaging, and laboratory results.
[2022-10-25 21:23] LABS: NT-proBNP (BNP-Adult 18+) 60 pg/mL (<450)
[2022-10-25 21:40] LABS: Add Manual Diff / Slide Review NO; Basophils Absolute Auto 0 /uL (0-100); Basophils Percent Auto 0.5 % (0-2); Eosinophils Absolute Auto 100 /uL (0-450); Eosinophils Percent Auto 2.1 % (2-4); Hematocrit 39.5 % (36-46); Hemoglobin 13.1 g/dL (12.0-16.0); Lymphocytes Absolute Auto 2000 /uL (1100-4500); Lymphocytes Percent Auto 33.7 % (25-40); Mean Corpuscular HGB Conc 33.3 % (30-36); Mean Corpuscular Hemoglobin 27.1 PG (26-34); Mean Corpuscular Volume 81.5 fL (80-100); Monocytes Absolute Auto 500 /uL (0-900); Neutrophils Absolute Auto 3300 /uL (1500-7000); Neutrophils Percent Auto 55.7 % (50-75); Platelet Count 267 X10^3/uL (150-400); Red Blood Cell Count 4.84 X10^6/uL (4.0-5.2); Red Cell Distribution Width 14.4 % (11.6-14.8)
[2022-10-25] MEDS: lisinopriL 5 MG TABLET PO (22:00)
[2022-10-25] MEDS: ATORVASTATIN 20 MG TABLET PO (22:01)
[2022-10-25] MEDS: SENNOSIDES 8.6 MG TABLET 17.2 MG PO (22:01)
[2022-10-26 01:09] LABS: Appearance Urine UA CLEAR; Bilirubin Urine UA NEGATIVE (NEGATIVE); Color Urine UA YELLOW; Glucose Urine UA NEGATIVE (Negative); Ketones Urine UA TRACE (NEGATIVE); Leukocyte Esterase Urine UA NEGATIVE (NEGATIVE); Nitrite Urine UA NEGATIVE (Negative); Occult Blood Urine UA NEGATIVE (Negative); Protein Urine UA NEGATIVE (Negative); Urobilinogen Urine UA 0.2 E.U./dL (0.2)
[2022-10-26 01:11] LABS: pH Urine UA 6.5 (4.5-8.0)
[2022-10-26 01:18] LABS: Bacteria Urine Few (2-10); Culture Indicated Urine Cult Not Indicated; RBC Urine None Seen (0-5/HPF); Squamous Epithelial Cell Urine 1-5 /HPF (0-5/HPF); WBC Urine 1-5/HPF (0-5/HPF)
[2022-10-26 05:48] LABS: Alanine Aminotransferase 20 IU/L (<35); Albumin 4.1 g/dL (3.5-5.0); Albumin Globulin Ratio 1.1 (1.0-2.8); Alkaline Phosphatase 46 U/L (38-126); Aspartate Aminotransferase 26 IU/L (14-36); BUN Creatinine Ratio 12.9 (6-22); Bilirubin Total 0.4 mg/dL (0.2-1.3); Blood Urea Nitrogen 12 mg/dL (7-17); Calcium 9.6 mg/dL (8.4-10.2); Carbon Dioxide 31 mmol/L (22-32); Chloride 100 mmol/L (98-107); Cholesterol 205 mg/dL (140-199); Estimated Glomerular Filt Rate > 60 mL/min (>60); Globulin 3.8 g/dL (1.7-4.1); Glucose 93 mg/dL (80-110); HDL Cholesterol 62 mg/dL (40-60); HEMOLYSIS < 15 (0-50); LDL Cholesterol Calculated 101 mg/dL (<100); Potassium 3.9 mmol/L (3.4-5.1); Sodium 137 mmol/L (137-145); Total Protein 7.9 g/dL (6.3-8.2); Triglycerides 211 mg/dL (35-150)
[2022-10-26] MEDS: LEVOTHYROXINE 50 MCG TABLET PO (06:46)
[2022-10-26 07:42] VITALS: BP 128/66; PULSE 84; RESP 17; TEMP 36.1; O2SAT 96
[2022-10-26 09:00] VITALS: BP 132/60; PULSE 81
[2022-10-26] MEDS: ASPIRIN EC 325 MG TABLET PO (09:00)
[2022-10-26] MEDS: carvediloL 12.5 MG TABLET 25 MG PO (09:00)
[2022-10-26] MEDS: CLOPIDOGREL 75 MG TABLET PO (09:00)
[2022-10-26] MEDS: lisinopriL 5 MG TABLET PO (09:00)
[2022-10-26] MEDS: ENOXAPARIN 40 MG/0.4 ML SYRINGE SUBCUT (09:02)
--- NOTE | 2022-10-26 09:29 | P.PN_ITS ---
Subjective Subjective Interval history: Patient feels like she is back to her usual self. Sister confirms this as well. Exam Vital Signs (past 8 hours): - 10/26/22 07:42 10/26/22 09:00 10/26/22 09:00 Temperature 96.9 F L Pulse Rate 84 81 81 Respiratory Rate 17 Blood Pressure 128/66 132/60 132/60 Pulse Oximetry 96 Oxygen Flow Rate 0 Oxygen Delivery Method Room Air Oxygen Flow Rate 0 Narrative Exam Narrative: General:? Patient is a well-developed, well-nourished in no distress at this time. Lungs:? Auscultation of all lung torres are clear without adventitious sounds, wheezes, rhonchi, or rales. Cardio:? S1 & S2 with regular rate and rhythm. Abdomen:? Soft nontender, negative for organomegaly, or masses.? Bowel sounds are present in all 4 quadrants. No tenderness. Musculoskeletal:? Muscle strength and tone are equal within normal limits, no deformity, crepitus, effusions, cyanosis, clubbing or edema present.? Full range of motion intact radial and pedal pulses are normal. Skin:? Warm dry and intact without rashes or lesions.? Neuro:? Alert and orientated x3, strength is +5/5 in all extremities, sensation to touch intact, no gross deficits noted of cranial nerves. Psych:? Patient has a well-kept appearance, appropriate affect, no confusion currently. However does not remember yesterday's events. Objective Labs 10/25/22 21:25 10/26/22 05:15 Labs: Laboratory Results - last 24 hr 10/25/22 10/25/22 10/25/22 17:00 17:00 17:00 WBC 5.8 RBC 5.05 Hgb 13.5 Hct 41.2 MCV 81.5 MCH 26.7 MCHC 32.7 RDW 14.2 Plt Count 266 Neut % (Auto) 56.5 Lymph % (Auto) 31.3 [place] % (Auto) 9.1 Eos % (Auto) 2.3 Baso % (Auto) 0.8 Neut # (Auto) 3300 Lymph # (Auto) 1800 [place] # (Auto) 500 Eos # (Auto) 100 Baso # (Auto) 0 PT 11.2 INR 1.0 APTT 30 Sodium 137 Potassium 4.0 Chloride 98 Carbon Dioxide 33 H BUN 14 Creatinine 1.04 Estimated GFR 56 L BUN/Creatinine Ratio 13.5 Glucose 96 Calcium 9.5 Magnesium 2.0 Total Bilirubin 0.5 AST 26 ALT 21 Alkaline Phosphatase 53 Ammonia Total Creatine Kinase 53 CK-MB (CK-2) TNP CK-MB (CK-2) Rel Index TNP Troponin I < 0.012 NT-Pro-B Natriuret Pep Total Protein 8.3 H Albumin 4.3 Globulin 4.0 Albumin/Globulin Ratio 1.1 Triglycerides Cholesterol LDL Cholesterol, Calc HDL Cholesterol TSH Free T4 Free T3 Urine Color Urine Appearance Urine pH Ur Specific [place] Urine Protein Urine Glucose (UA) Urine Ketones Urine Occult Blood Urine Nitrate Urine Bilirubin Urine Urobilinogen Ur Leukocyte Esterase Urine RBC Urine WBC Ur Squamous Epith Cells Urine Bacteria Ur Culture Indicated? SARS-CoV-2 (PCR) 10/25/22 10/25/22 10/25/22 17:00 17:00 17:00 WBC RBC Hgb Hct MCV MCH MCHC RDW Plt Count Neut % (Auto) Lymph % (Auto) [place] % (Auto) Eos % (Auto) Baso % (Auto) Neut # (Auto) Lymph # (Auto) [place] # (Auto) Eos # (Auto) Baso # (Auto) PT INR APTT Sodium Potassium Chloride Carbon Dioxide BUN Creatinine Estimated GFR BUN/Creatinine Ratio Glucose Calcium Magnesium Total Bilirubin AST ALT Alkaline Phosphatase Ammonia < 9 L Total Creatine Kinase CK-MB (CK-2) CK-MB (CK-2) Rel Index Troponin I NT-Pro-B Natriuret Pep Total Protein Albumin Globulin Albumin/Globulin Ratio Triglycerides Cholesterol LDL Cholesterol, Calc HDL Cholesterol TSH 0.131 L Free T4 1.06 Free T3 2.80 Urine Color Urine Appearance Urine pH Ur Specific [place] Urine Protein Urine Glucose (UA) Urine Ketones Urine Occult Blood Urine Nitrate Urine Bilirubin Urine Urobilinogen Ur Leukocyte Esterase Urine RBC Urine WBC Ur Squamous Epith Cells Urine Bacteria Ur Culture Indicated? SARS-CoV-2 (PCR) 10/25/22 10/25/22 10/25/22 17:00 17:40 21:25 WBC 6.0 RBC 4.84 Hgb 13.1 Hct 39.5 MCV 81.5 MCH 27.1 MCHC 33.3 RDW 14.4 Plt Count 267 Neut % (Auto) 55.7 Lymph % (Auto) 33.7 [place] % (Auto) 8.0 Eos % (Auto) 2.1 Baso % (Auto) 0.5 Neut # (Auto) 3300 Lymph # (Auto) 2000 [place] # (Auto) 500 Eos # (Auto) 100 Baso # (Auto) 0 PT INR APTT Sodium Potassium Chloride Carbon Dioxide BUN Creatinine Estimated GFR BUN/Creatinine Ratio Glucose Calcium Magnesium Total Bilirubin AST ALT Alkaline Phosphatase Ammonia Total Creatine Kinase CK-MB (CK-2) CK-MB (CK-2) Rel Index Troponin I NT-Pro-B Natriuret Pep 60 Total Protein Albumin Globulin Albumin/Globulin Ratio Triglycerides Cholesterol LDL Cholesterol, Calc HDL Cholesterol TSH Free T4 Free T3 Urine Color Urine Appearance Urine pH Ur Specific [place] Urine Protein Urine Glucose (UA) Urine Ketones Urine Occult Blood Urine Nitrate Urine Bilirubin Urine Urobilinogen Ur Leukocyte Esterase Urine RBC Urine WBC Ur Squamous Epith Cells Urine Bacteria Ur Culture Indicated? SARS-CoV-2 (PCR) Negative 10/26/22 10/26/22 10/26/22 00:30 05:15 05:15 WBC RBC Hgb Hct MCV MCH MCHC RDW Plt Count Neut % (Auto) Lymph % (Auto) [place] % (Auto) Eos % (Auto) Baso % (Auto) Neut # (Auto) Lymph # (Auto) [place] # (Auto) Eos # (Auto) Baso # (Auto) PT INR APTT Sodium 137 Potassium 3.9 Chloride 100 Carbon Dioxide 31 BUN 12 Creatinine 0.93 Estimated GFR > 60 BUN/Creatinine Ratio 12.9 Glucose 93 Calcium 9.6 Magnesium Total Bilirubin 0.4 AST 26 ALT 20 Alkaline Phosphatase 46 Ammonia Total Creatine Kinase CK-MB (CK-2) CK-MB (CK-2) Rel Index Troponin I NT-Pro-B Natriuret Pep Total Protein 7.9 Albumin 4.1 Globulin 3.8 Albumin/Globulin Ratio 1.1 Triglycerides 211 H Cholesterol 205 H LDL Cholesterol, Calc 101 H HDL Cholesterol 62 H TSH Free T4 Free T3 Urine Color Yellow Urine Appearance Clear Urine pH 6.5 Ur Specific [place] 1.010 Urine Protein Negative Urine Glucose (UA) Negative Urine Ketones Trace H Urine Occult Blood Negative Urine Nitrate Negative Urine Bilirubin Negative Urine Urobilinogen 0.2 Ur Leukocyte Esterase Negative Urine RBC None seen Urine WBC 1-5/hpf Ur Squamous Epith Cells 1-5 /hpf Urine Bacteria Few (2-10) H Ur Culture Indicated? Cult not indicated SARS-CoV-2 (PCR) [facility] Medical History Cardiac arrhythmia (~1989) Cataracts, bilateral (~2009) Diverticulosis (~2019) Endometriosis (~1966) Fractures Herniated nucleus pulposus, L2-3 History of chickenpox History of measles History of mumps Hypertension (~1964) Hypothyroid Plantar warts Surgical History Anesthesia (~1974) History of cataract surgery (~2019) History of cholecystectomy (~1999) History of hysterectomy (~1974) Hx of hemorrhoidectomy (~1969) Family History Father Hypertension Congestive heart failure Mother Hypertension Congestive heart failure Social History household members: family Smoking Status: Former smoker Tobacco: How many years used: 50 quit status: has quit before alcohol intake: current substance use type: marijuana Assessment & Plan Assessment & Plan narrative: 1. TIA vs? v strokes antegrade amnesia vs total global amnesia, acute, present on admission -admit patient continues to have no recall of events in the ED -NIH: 1 -head and neck CTA is negative for any acute intracranial process -patient placed on Plavix, ASA, Lipitor -MRI ordered and expected to be done today. -patient admitted under TIA protocol -strict fall precautions 2. Hypertensive urgency in the setting of essential hypertension, acute on chronic, present on admission -ED 209/92, 212/90, 229/102 , admit BP 169/77-today blood pressure has stabilized. -EKG sinus rhythm rate of [address] or T-wave changes, yesterday -echo pending -continue lisinopril, carvedilol -placed on tele 3. Hypothyroidism, chronic, present on admission -TSH 0.131, patient's dosage changed from 75 mcg to 50 mcg -patient to follow up with PCP repeat TSH in 6 weeks 4. Depression, chronic, present on admission -holding fluoxetine due to possible interaction with Plavix 5. Hormone replacement therapy, chronic, present on admission -holding Premarin due to possible interaction with Plavix 6. Obesity, mild, acute on chronic, present on admission -BMI 32.1 -hold semaglutide-possible medication reaction -dietary consult ordered regarding nutritional education and information for dietary, lifestyle, exercise, and weight changes. -the patient is at much higher risk for medical and surgical complications due to obesity as it relates to chronic illnesses:, and acute illness.? The patient's obesity increases the difficulty and complexity of medical and/or surgical interventions, management and increases the chances of poor outcome such as morbidity and mortality as well as impaired wound healing. Code status:? Full Surrogate decision maker:? Nieves Wells sister COVID PCR:? Negative DVT/VTE prophylaxis:? Lovenox and SCDs Quality VTE Deep Vein Thrombosis/Pulmonary Embolism Present on Admission: No
--- NOTE | 2022-10-26 10:43 | PC.NURSE ---
Pt A&Ox4, VSS. Able to answer questions about medication history and current medications, recognized new meds from regular medications, demonstrated short term recall. Some c/o headache (the annoying kind) and nausea, but declined medications for them.
[2022-10-26 11:21] VITALS: BP 110/63; PULSE 79; RESP 18; TEMP 36.2; O2SAT 100
[2022-10-26] MEDS: LORazepam 2 MG/ML INJ 1 MG IV (11:55)
--- NOTE | 2022-10-26 11:57 | CM.DANOTE ---
Initial Discharge Assessment Note: Case reviewed, met with patient, sister in room. Introduced self and role. Payer: [facility] and Medicare PCP: Unknown on facesheet 77 year old female brought to ED by sister due to patient had sudden onset confusion, admitted for TIA vs CVA vs amnesia and hypertensive urgency per notes. Patient is A/O today. MRI and Echo today. Patient lives with sister Nieves in [place] and is independent in her lifestyle. Plan: When medically cleared, return home to previous living arrangement. 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 No History Provided By Patient,Family Member Prior Living Arrangements House Household Members family Type of transporation used prior to Drives own vehicle admit Independent with ADL's Yes Is patient alert and oriented? Yes Caregiver for Another No Barriers to Discharge No Discharge Plan Home Referrals Initiated None needed Review Status In Process Next Review Type Continued Stay Review
[2022-10-26] MEDS: ONDANSETRON 4 MG ODT PO (12:03)
[2022-10-26 16:30] VITALS: BP 108/61; PULSE 75; RESP 17; TEMP 36.4; O2SAT 95
--- NOTE | 2022-10-26 17:07 | PM.DS.1 ---
History of Present Illness History of Present Illness Date Patient Seen: 10/26/22 Chief complaint: confusion,crying,vomiting Discharge Providers Provider Date of admission: 10/25/22 19:44 Discharge Date: 10/26/22 Primary care physician: Doctor Antonio MD Consults: 10/25/22 20:44 Consult to Occupational Therapy Evaluate & Treat Comment: Physician Instructions: Evaluate and treat Consult to Physical Therapy Evaluate & Treat Comment: Physician Instructions: Evaluate and Treat 10/25/22 20:49 Consult to Dietitian, Adult Routine Comment: Reason For Exam: BMI 30 Consult to Discharge Planning Routine Comment: Discharge provider: Celsa Easley MD Summary Hospital Course Discharge Diagnosis: TIA Hypertensive urgency Hypothyroidism, overtreated Depression Hormone replacement therapy Mild obesity Other comorbidities/past medical history: Cardiac arrhythmia (~1989) Cataracts, bilateral (~2009) Diverticulosis (~2019) Endometriosis (~1966) Fractures Herniated nucleus pulposus, L2-3 History of chickenpox History of measles History of mumps Hypertension (~1964) Hypothyroid Plantar warts History of cataract surgery (~2019) History of cholecystectomy (~1999) History of hysterectomy (~1974) Hx of hemorrhoidectomy (~1969) Hospital Course: Uzma Wells is a 77-year-old female with a history of hypertension, cardiac arrhythmia hypothyroidism, depression, who was brought into the ED by her sister whom she lives with. Sister found that when the patient woke up this afternoon she was confused as to place and time, alert only to name, had difficulty forming new memories. In the emergency department the patient has no specific symptoms although she obviously did not remember why she was there with the events of earlier in day. Dr. Holcomb discussed the case with tele stroke in decision is made not to administer tPA.? Patient's level of cognitive function was still not at baseline per her sister (in ED).? Patient did have hypertensive urgency in ED 209/, 212/90, 229/102 Patient was admitted for stroke/TIA assessment. Stroke was ruled out with an MRI and CTA of the neck and head was also unremarkable. Echocardiogram was improved from previous echocardiogram with the ejection fraction now at 70-75%. TSH was noted to be low at 0.131 and patient's levothyroxine was decreased to 50 mcg daily with the instructions to follow-up with her primary physician in 6 weeks to have retesting. Patient was discharged on clopidogrel 75 mg for another 20 days and ASA 81 mg to continue for life. As well the patient was placed on atorvastatin 20 mg daily. Triglycerides, LDH were both elevated however HDL was elevated as well. Status at Discharge Cognitive/behavioral status at discharge: at baseline, oriented Functional status at discharge: independent ambulation Overall status at discharge: patient is back to baseline Time Spent with Patient Time spent: Greater than 30 minutes Exam Vital Signs (past 8 hours): - 10/26/22 11:21 10/26/22 16:30 Temperature 97.1 F L 97.6 F Pulse Rate 79 75 Respiratory Rate 18 17 Blood Pressure 110/63 108/61 Pulse Oximetry 100 95 Oxygen Flow Rate 0 0 Oxygen Delivery Method Room Air Oxygen Flow Rate 0 Objective Labs 10/25/22 21:25 10/26/22 05:15 Labs: Laboratory Results - last 24 hr 10/25/22 10/25/22 10/25/22 17:00 17:00 17:00 WBC 5.8 RBC 5.05 Hgb 13.5 Hct 41.2 MCV 81.5 MCH 26.7 MCHC 32.7 RDW 14.2 Plt Count 266 Neut % (Auto) 56.5 Lymph % (Auto) 31.3 [place] % (Auto) 9.1 Eos % (Auto) 2.3 Baso % (Auto) 0.8 Neut # (Auto) 3300 Lymph # (Auto) 1800 [place] # (Auto) 500 Eos # (Auto) 100 Baso # (Auto) 0 PT 11.2 INR 1.0 APTT 30 Sodium 137 Potassium 4.0 Chloride 98 Carbon Dioxide 33 H BUN 14 Creatinine 1.04 Estimated GFR 56 L BUN/Creatinine Ratio 13.5 Glucose 96 Calcium 9.5 Magnesium 2.0 Total Bilirubin 0.5 AST 26 ALT 21 Alkaline Phosphatase 53 Ammonia Total Creatine Kinase 53 CK-MB (CK-2) TNP CK-MB (CK-2) Rel Index TNP Troponin I < 0.012 NT-Pro-B Natriuret Pep Total Protein 8.3 H Albumin 4.3 Globulin 4.0 Albumin/Globulin Ratio 1.1 Triglycerides Cholesterol LDL Cholesterol, Calc HDL Cholesterol TSH Free T4 Free T3 Urine Color Urine Appearance Urine pH Ur Specific [place] Urine Protein Urine Glucose (UA) Urine Ketones Urine Occult Blood Urine Nitrate Urine Bilirubin Urine Urobilinogen Ur Leukocyte Esterase Urine RBC Urine WBC Ur Squamous Epith Cells Urine Bacteria Ur Culture Indicated? SARS-CoV-2 (PCR) 10/25/22 10/25/22 10/25/22 17:00 17:00 17:00 WBC RBC Hgb Hct MCV MCH MCHC RDW Plt Count Neut % (Auto) Lymph % (Auto) [place] % (Auto) Eos % (Auto) Baso % (Auto) Neut # (Auto) Lymph # (Auto) [place] # (Auto) Eos # (Auto) Baso # (Auto) PT INR APTT Sodium Potassium Chloride Carbon Dioxide BUN Creatinine Estimated GFR BUN/Creatinine Ratio Glucose Calcium Magnesium Total Bilirubin AST ALT Alkaline Phosphatase Ammonia < 9 L Total Creatine Kinase CK-MB (CK-2) CK-MB (CK-2) Rel Index Troponin I NT-Pro-B Natriuret Pep Total Protein Albumin Globulin Albumin/Globulin Ratio Triglycerides Cholesterol LDL Cholesterol, Calc HDL Cholesterol TSH 0.131 L Free T4 1.06 Free T3 2.80 Urine Color Urine Appearance Urine pH Ur Specific [place] Urine Protein Urine Glucose (UA) Urine Ketones Urine Occult Blood Urine Nitrate Urine Bilirubin Urine Urobilinogen Ur Leukocyte Esterase Urine RBC Urine WBC Ur Squamous Epith Cells Urine Bacteria Ur Culture Indicated? SARS-CoV-2 (PCR) 10/25/22 10/25/22 10/25/22 17:00 17:40 21:25 WBC 6.0 RBC 4.84 Hgb 13.1 Hct 39.5 MCV 81.5 MCH 27.1 MCHC 33.3 RDW 14.4 Plt Count 267 Neut % (Auto) 55.7 Lymph % (Auto) 33.7 [place] % (Auto) 8.0 Eos % (Auto) 2.1 Baso % (Auto) 0.5 Neut # (Auto) 3300 Lymph # (Auto) 2000 [place] # (Auto) 500 Eos # (Auto) 100 Baso # (Auto) 0 PT INR APTT Sodium Potassium Chloride Carbon Dioxide BUN Creatinine Estimated GFR BUN/Creatinine Ratio Glucose Calcium Magnesium Total Bilirubin AST ALT Alkaline Phosphatase Ammonia Total Creatine Kinase CK-MB (CK-2) CK-MB (CK-2) Rel Index Troponin I NT-Pro-B Natriuret Pep 60 Total Protein Albumin Globulin Albumin/Globulin Ratio Triglycerides Cholesterol LDL Cholesterol, Calc HDL Cholesterol TSH Free T4 Free T3 Urine Color Urine Appearance Urine pH Ur Specific [place] Urine Protein Urine Glucose (UA) Urine Ketones Urine Occult Blood Urine Nitrate Urine Bilirubin Urine Urobilinogen Ur Leukocyte Esterase Urine RBC Urine WBC Ur Squamous Epith Cells Urine Bacteria Ur Culture Indicated? SARS-CoV-2 (PCR) Negative 10/26/22 10/26/22 10/26/22 00:30 05:15 05:15 WBC RBC Hgb Hct MCV MCH MCHC RDW Plt Count Neut % (Auto) Lymph % (Auto) [place] % (Auto) Eos % (Auto) Baso % (Auto) Neut # (Auto) Lymph # (Auto) [place] # (Auto) Eos # (Auto) Baso # (Auto) PT INR APTT Sodium 137 Potassium 3.9 Chloride 100 Carbon Dioxide 31 BUN 12 Creatinine 0.93 Estimated GFR > 60 BUN/Creatinine Ratio 12.9 Glucose 93 Calcium 9.6 Magnesium Total Bilirubin 0.4 AST 26 ALT 20 Alkaline Phosphatase 46 Ammonia Total Creatine Kinase CK-MB (CK-2) CK-MB (CK-2) Rel Index Troponin I NT-Pro-B Natriuret Pep Total Protein 7.9 Albumin 4.1 Globulin 3.8 Albumin/Globulin Ratio 1.1 Triglycerides 211 H Cholesterol 205 H LDL Cholesterol, Calc 101 H HDL Cholesterol 62 H TSH Free T4 Free T3 Urine Color Yellow Urine Appearance Clear Urine pH 6.5 Ur Specific [place] 1.010 Urine Protein Negative Urine Glucose (UA) Negative Urine Ketones Trace H Urine Occult Blood Negative Urine Nitrate Negative Urine Bilirubin Negative Urine Urobilinogen 0.2 Ur Leukocyte Esterase Negative Urine RBC None seen Urine WBC 1-5/hpf Ur Squamous Epith Cells 1-5 /hpf Urine Bacteria Few (2-10) H Ur Culture Indicated? Cult not indicated SARS-CoV-2 (PCR) PFSH Medical History Cardiac arrhythmia (~1989) Cataracts, bilateral (~2009) Diverticulosis (~2019) Endometriosis (~1966) Fractures Herniated nucleus pulposus, L2-3 History of chickenpox History of measles History of mumps Hypertension (~1964) Hypothyroid Plantar warts Surgical History Anesthesia (~1974) History of cataract surgery (~2019) History of cholecystectomy (~1999) History of hysterectomy (~1974) Hx of hemorrhoidectomy (~1969) Family History Father Hypertension Congestive heart failure Mother Hypertension Congestive heart failure Social History household members: family Smoking Status: Former smoker Tobacco: How many years used: 50 quit status: has quit before alcohol intake: current substance use type: marijuana Discharge Plan Discharge Plan Patient Disposition: Home Provider Discharge Comment: Obtain prescriptions today and take as prescribed. [facility]. Discharge orders & Medications Prescriptions: New atorvastatin [Lipitor] 20 mg Tablet 20 mg PO BEDTIME Qty: 30 0RF clopidogrel 75 mg Tablet 75 mg PO DAILY Qty: 20 0RF levothyroxine [Synthroid] 50 mcg Tablet 50 mcg PO DAILY@0600 Qty: 30 0RF aspirin 81 mg tablet,delayed release (DR/EC) 81 mg PO DAILY Qty: 30 0RF Continued lisinopril 5 MG tablet 5 mg PO QDAY Qty: 0 Premarin 0.625 MG tablet 0.625 mg PO QDAY Qty: 0 carvedilol 25 mg tablet 25 mg PO BID Qty: 180 2RF Rx Instructions: must administer with a meal/food Wegovy 0.5 mg/0.5 mL Pen Injector 0.5 mg SUBCUT QWEEK Rx Instructions: administer weeks 5 through 8 of therapy fluoxetine [Prozac] 20 mg capsule 20 mg PO ONCE Qty: 30 0RF Rx Instructions: Hold until Plavix is completed Discontinued levothyroxine 88 MCG tablet 75 mcg PO QDAY Qty: 0 Follow up/Referrals: Doctor Alvarez MD [Primary Care Provider] - Visit Report/Discharge Packet Stand Alone Forms: Patient Portal/API, Stroke Signs & Symptoms Discharge Data Primary Care Provider: Doctor Antonio Attending Provider: Radha Watkins Admit Date/Time: 10/25/22 19:44 Quality VTE Deep Vein Thrombosis/Pulmonary Embolism Present on Admission: No
--- NOTE | 2022-10-26 17:39 | PC.NURSE ---
Pt A&Ox4, VSS, RA, Independent. IV removed, tolerated well. Reviewed discharge information with patient and sister. Both able to teach back information independently. Pt escorted downstairs in wheelchair by PALAK Harris, and discharged home with ride from sister.
[2022-10-28 08:02] LABS: x Labcorp Estim. Avg Glu (eAG) 114 mg/dL (.); x Labcorp Hemoglobin A1c 5.6 % (4.8-5.6)
== END 2022-10-26 17:40 | disposition home or self-care (01) ==
LOC: ED 19:43 → AC 19:45
PROVIDERS: Emergency Medicine; Admitting Provider Nurse Practitioner Family; Emergency Provider Emergency Medicine; Visit Provider Nurse Practitioner Family
DX: I16.0 Hypertensive urgency (principal); R41.0 Disorientation, unspecified; R29.701 NIHSS score 1; I10 Essential (primary) hypertension; E03.9 Hypothyroidism, unspecified; F32.A Depression, unspecified; E66.9 Obesity, unspecified; Z68.32 Body mass index [BMI] 32.0-32.9, adult; Z20.822 Contact with and (suspected) exposure to COVID-19
CPT/HCPCS: 36415; 70450; 70496; 70498; 70551; 71045; 80053; 80061; 81001; 81003; 82140; 82550; 82962; 83036; 83735; 83880; 84439; 84443; 84481; 84484; 85025; 85610; 85730; 87635; 93005; 93010; 93306; 96372; 96374; 97161; 99284; 99285; C9803; G0378; J1650; J2060; Q9967

== ENCOUNTER 2023-10-10 22:14 | Inpatient (IN) | payer OTHER, SELFPAY ==
[2022-10-25 20:33] VITALS: BMI 32.1
[2023-10-10 22:21] VITALS: BP 241/102; PULSE 85; RESP 20; TEMP 36.1; O2SAT 97; BMI 30.7
[2023-10-10 22:38] VITALS: BP 212/101; PULSE 76; RESP 37; O2SAT 94
[2023-10-10 22:52] LABS: Add Manual Diff / Slide Review NO; Basophils Absolute Auto 0 /uL (0-100); Basophils Percent Auto 0.7 % (0-2); Eosinophils Absolute Auto 300 /uL (0-450); Eosinophils Percent Auto 4.1 % (2-4); Hematocrit 40.1 % (36-46); Hemoglobin 12.9 g/dL (12.0-16.0); Lymphocytes Absolute Auto 2000 /uL (1100-4500); Lymphocytes Percent Auto 29.6 % (25-40); Mean Corpuscular HGB Conc 32.2 % (30-36); Mean Corpuscular Hemoglobin 26.1 PG (26-34); Mean Corpuscular Volume 81.3 fL (80-100); Monocytes Absolute Auto 700 /uL (0-900); Monocytes Percent Auto 9.6 % (3-14); Neutrophils Absolute Auto 3900 /uL (1500-7000); Platelet Count 268 X10^3/uL (150-400); Red Blood Cell Count 4.94 X10^6/uL (4.0-5.2); White Blood Cell Count 6.9 X10^3/uL (4.5-11.0)
--- NOTE | 2023-10-10 22:52 | ED_ITS ---
HPI - Abdominal Pain General Chief Complaint: Abdominal Pain Stated Complaint: thinks diverticulitis Time Seen by Provider: 10/10/23 22:38 Source: patient Mode of arrival: Ambulatory History of Present Illness HPI narrative: 78-year-old female with history of hypertension, COPD (not on O2), TIA presents by private vehicle from home for bilateral lower quadrant abdominal pain, nausea, vomiting since approximately 3:00 p.m. today. Patient states she was a history of diverticulitis and this feels similar. No medications taken prior to arrival. Patient reports that pain is 10/10 and constant with intermittent worsening. Reports history of cholecystectomy and hysterectomy. Related Data Home Medications Medication Instructions Recorded Confirmed conjugated estrogens 0.625 mg 0.625 mg PO QDAY ##0 08/25/11 10/11/23 tablet (Premarin) lisinopril 5 mg tablet 5 mg PO QDAY ##0 08/25/11 10/11/23 Previous Rx's Medication Instructions Recorded carvedilol 25 mg tablet 25 mg PO BID #180 tabs 02/20/21 aspirin 81 mg tablet,delayed 81 mg PO DAILY #30 tabs 10/26/22 release atorvastatin 20 mg tablet (Lipitor) 20 mg PO BEDTIME #30 tabs 10/26/22 fluoxetine 20 mg capsule (Prozac) 20 mg PO ONCE #30 caps 10/26/22 levothyroxine 50 mcg tablet 50 mcg PO DAILY@0600 #30 tabs 10/26/22 (Synthroid) Allergies Allergy/AdvReac Type Severity Reaction Status Date / Time codeine Allergy Mild rash, Verified 10/25/22 16:53 vomiting Review of Systems Review of Systems Narrative: Negative except as noted above Patient History Medical History Herniated nucleus pulposus, L2-3 Plantar warts Fractures History of mumps History of measles History of chickenpox Cataracts, bilateral (~2009) Endometriosis (~1966) Diverticulosis (~2019) Cardiac arrhythmia (~1989) Hypothyroid Hypertension (~1964) Surgical History History of cataract surgery (~2019) Hx of hemorrhoidectomy (~1969) Anesthesia (~1974) History of cholecystectomy (~1999) History of hysterectomy (~1974) Family History Father Hypertension Congestive heart failure Mother Hypertension Congestive heart failure Social History household members: family Smoking Status: Former smoker Tobacco: How many years used: 50 quit status: has quit before alcohol intake: current substance use type: marijuana Smoking Status: Former smoker alcohol intake frequency: holidays/special occasions only Substance Use Type: does not use Exam Initial Vital Signs Initial Vital Signs: Vital Signs Temperature 97.0 F L 10/10/23 22:21 Pulse Rate 85 10/10/23 22:21 Respiratory Rate 20 10/10/23 22:21 Blood Pressure 241/102 H 10/10/23 22:21 Pulse Oximetry 97 10/10/23 22:21 Oxygen Delivery Method Room Air 10/10/23 22:21 Const: Awake, alert, uncomfortable, in pain Cardiac: regular rate, regular rhythm RESP: unlabored, clear bilaterally, no wheezing GI: Soft, generalized tenderness to palpation particularly in lower quadrants, no rebound, no guarding Skin: Warm, Dry, intact, no rashes Neuro: AO x3, CN II-XII grossly intact, moves all extremities Course Orders Ordered: ED Orders 10/10/23 22:31 CBC Auto Diff [Complete Blood Count AUTO DIFF] Stat CMP [Comprehensive Metabolic Panel] Stat Lactate (Lactic Acid) Stat Lipase Stat 10/10/23 22:51 CT abdomen pelvis w con Stat 10/11/23 00:02 UA Complete [Urinalysis and Microscopic] Stat Hydralazine HCl (Hydralazine 20 Mg/Ml Vial) 10 mg IV Q6HR PRN PRN Reason: For SBP>170 Potassium Chloride/Dextrose/Sod Cl (Dextrose 5%-0.45%Ns W/Kcl 20meq) 1,000 mls @ 100 mls/hr IV CONT MAXI Last Admin: 10/11/23 02:17 Dose: 100 mls/hr Documented By: JUNE Dextrose (D10w) 100 mls @ 1,200 mls/hr IV PRN PRN PRN Reason: Hypoglycemia Insulin Human Lispro (Insulin Lispro 100 Unit/Ml 3ml Vial) 0 unit SUBCUT Q6H MAXI; Protocol Last Admin: 10/11/23 02:38 Dose: Not Given Documented By: JUNE Metoprolol Tartrate (Metoprolol Tartrate 5 Mg/5 Ml Inj) 5 mg IV Q2HR PRN PRN Reason: for HR > 120 Morphine Sulfate (Morphine 4 Mg/Ml Inj) 4 mg IV Q4HR PRN PRN Reason: Pain, Severe (7-10) Last Admin: 10/11/23 04:43 Dose: 4 mg Documented By: JUNE Naloxone HCl (Naloxone 0.4 Mg/Ml Vial) 0.2 mg IV Q2MIN PRN PRN Reason: Opiate Reversal Ondansetron HCl (Ondansetron 4 Mg/2 Ml Inj) 4 mg IV Q4HR PRN PRN Reason: Nausea And Vomiting Last Admin: 10/11/23 03:52 Dose: 4 mg Documented By: JUNE Discontinued Medications Hydralazine HCl (Hydralazine 20 Mg/Ml Vial) 20 mg IV NOW ONE Stop: 10/11/23 00:33 Last Admin: 10/11/23 00:46 Dose: 20 mg Documented By: Sodium Chloride (Normal Saline 0.9%) 1,000 mls @ 125 mls/hr IV CONT [facility] Last Admin: 10/11/23 00:57 Dose: 125 mls/hr Documented By: Lactated Ringer's (Lactated Ringers) 1,000 mls @ 100 mls/hr IV CONT [facility] Morphine Sulfate (Morphine 4 Mg/Ml Inj) 4 mg IV NOW ONE Stop: 10/10/23 22:52 Last Admin: 10/10/23 23:12 Dose: 4 mg Documented By: TONY Morphine Sulfate (Morphine 4 Mg/Ml Inj) 4 mg IV NOW ONE Stop: 10/11/23 00:27 Last Admin: 10/11/23 00:46 Dose: 4 mg Documented By: Ondansetron HCl (Ondansetron 4 Mg/2 Ml Inj) 4 mg IV NOW ONE Stop: 10/10/23 22:52 Last Admin: 10/10/23 23:12 Dose: 4 mg Documented By: TONY Ondansetron HCl (Ondansetron 4 Mg/2 Ml Inj) 4 mg IV Q2HR PRN PRN Reason: nausea Vital Signs Vital signs: Vital Signs - 8 hr 10/10/23 22:21 10/10/23 22:38 10/10/23 22:38 Temperature 97.0 F L Pulse Rate 85 76 Respiratory Rate 20 37 H Blood Pressure 241/102 H 212/101 H Pulse Oximetry 97 94 Oxygen Delivery Method Room Air 10/10/23 23:00 10/10/23 23:25 10/10/23 23:25 Temperature Pulse Rate 71 77 Respiratory Rate 45 H 13 Blood Pressure 213/93 H Pulse Oximetry 94 Oxygen Delivery Method 10/10/23 23:30 10/10/23 23:30 10/11/23 00:02 Temperature Pulse Rate 73 80 Respiratory Rate 18 Blood Pressure 202/93 H Pulse Oximetry 94 93 Oxygen Delivery Method 10/11/23 00:30 10/11/23 00:31 10/11/23 00:31 Temperature Pulse Rate 72 72 Respiratory Rate 30 H 30 H Blood Pressure 211/100 H Pulse Oximetry 93 96 Oxygen Delivery Method 10/11/23 00:46 10/11/23 00:51 10/11/23 00:51 Temperature Pulse Rate 74 75 Respiratory Rate 26 H Blood Pressure 236/99 H 236/99 H Pulse Oximetry 92 Oxygen Delivery Method MDM - Abdominal Pain Differential Diagnosis Differential diagnosis: Likely abdominal pain, acute appendicitis and small bowel obstruction Lab Data 10/10/23 22:31 10/10/23 22:31 Labs: Lab Results 10/10/23 10/11/23 Range/Units 22:31 00:02 WBC 6.9 (4.5-11.0) X10^3/uL RBC 4.94 (4.0-5.2) X10^6/uL Hgb 12.9 (12.0-16.0) g/dL Hct 40.1 (36-46) % MCV 81.3 (80-100) fL MCH 26.1 (26-34) PG MCHC 32.2 (30-36) % RDW 15.0 H (11.6-14.8) % Plt Count 268 (150-400) X10^3/uL Neut % (Auto) 56.0 (50-75) % Lymph % (Auto) 29.6 (25-40) % [place] % (Auto) 9.6 (3-14) % Eos % (Auto) 4.1 H (2-4) % Baso % (Auto) 0.7 (0-2) % Neut # (Auto) 3900 (4702-2746) /uL Lymph # (Auto) 2000 (9058-3311) /uL [place] # (Auto) 700 (0-900) /uL Eos # (Auto) 300 (0-450) /uL Baso # (Auto) 0 (0-100) /uL Sodium 138 (137-145) mmol/L Potassium 4.2 (3.4-5.1) mmol/L Chloride 105 (98-107) mmol/L Carbon Dioxide 31 (22-32) mmol/L BUN 21 H (7-17) mg/dL Creatinine 0.80 (0.52-1.04) mg/dL Estimated GFR > 60 (>60) mL/min BUN/Creatinine Ratio 26.3 H (6-22) Glucose 106 (80-110) mg/dL Lactate 0.7 (0.7-2.1) mmol/L Calcium 9.9 (8.4-10.2) mg/dL Total Bilirubin 0.4 (0.2-1.3) mg/dL AST 24 (14-36) IU/L ALT 20 (<35) IU/L Alkaline Phosphatase 66 (38-126) U/L Total Protein 7.8 (6.3-8.2) g/dL Albumin 4.2 (3.5-5.0) g/dL Globulin 3.6 (1.7-4.1) g/dL Albumin/Globulin Ratio 1.2 (1.0-2.8) Lipase 128 (23-300) U/L Urine Color Yellow Urine Appearance Clear Urine pH 5.5 (4.5-8.0) Ur Specific [place] 1.015 (1.000-1.035) Urine Protein Negative (Negative) Urine Glucose (UA) Negative (Negative) g/dL Urine Ketones Negative (NEGATIVE) Urine Occult Blood Trace-intact (Negative) Urine Nitrate Negative (Negative) Urine Bilirubin Negative (NEGATIVE) Urine Urobilinogen 0.2 (0.2) E.U./dL Ur Leukocyte Esterase Negative (NEGATIVE) Urine RBC 0-1/hpf (0-5/HPF) Urine WBC None seen (0-5/HPF) Ur Squamous Epith Cells 0-1 /hpf (0-5/HPF) Urine Bacteria None seen (None) Ur Culture Indicated? Cult not indicated Vol Urine Centrifuged 10ml (spun) Point of care testing: Point of Care Testing Glucose POC [address] scan - abdomen/pelvis: Radiologist's Impression: PROCEDURE: CT ABDOMEN PELVIS W CON INDICATIONS: LLQ ABD PAIN TECHNIQUE: After the administration of intravenous contrast, axial sections acquired from the lung bases to the pubic symphysis. Coronal and sagittal reformats were performed. For radiation dose reduction, the following was used: automated exposure control, adjustment of mA and/or kV according to patient size. COMPARISON: [facility], CT, CT ABDOMEN WWO PELVIS W, 09/18/2020, 11:02. [facility], CT, CT LOW DOSE LUNG CA SCREENING, 06/24/2023, 14:22. [facility], CT, CT ABDOMEN PELVIS W CON, 08/13/2020, 13:54. FINDINGS: Image quality: Diagnostic. Lower Chest: No significant findings. ABDOMEN: Liver: There is a stable area of increased enhancement seen within mid liver, continuing to the liver dome, as seen on series 2, image 13. This is similar to 2020. Gallbladder: Cholecystectomy. Biliary ducts: No biliary dilation for a post cholecystectomy patient. Pancreas: No ductal dilation. Spleen: Size is within normal limits. Incidental note is made of an accessory splenule along the hilum of the primary spleen. Adrenal Glands: No adrenal nodules. Kidneys and Ureters: No hydronephrosis. No solid mass. No complex renal cystic lesion which requires follow up. Numerous simple appearing bilateral renal cysts can be seen, left more numerous than right. Stomach and Bowel: Distal colonic diverticulosis can be seen, without findings of active diverticulitis. Fluid-filled loops of prominent small bowel can be seen, which measure up to 3.6 cm. There is a transition point seen within the right lower quadrant, as demonstrated on series 4, image 28 and on series 2 image 77 and on series 5, image 38. Distal to this point, the small bowel is decompressed. Peritoneum: No abnormal intraperitoneal fluid. No free air. Ventral Wall: No significant ventral hernia. Abdominal Nodes: No retroperitoneal or mesenteric adenopathy by size criteria. Vessels: Aorta and inferior vena cava are normal in size. Atherosclerotic calcification is noted. PELVIS: Pelvic Organs: This patient is status post hysterectomy. No adnexal masses are seen. Bladder: No bladder wall thickening, accounting for underdistention. Pelvic Nodes: No enlarged lymph nodes. Miscellaneous: No inguinal hernias are seen. Bones: No aggressive osseous abnormality. There is focal L2-L3 degenerative change. Milder degenerative changes are seen elsewhere. IMPRESSION: Small-bowel obstruction, with a transition point seen within the right lower quadrant. Colonic diverticulosis is seen, without findings of active diverticulitis. Within the liver, there is a region of increased enhancement, which is similar to priors and regarded to be benign. Additional findings: Cholecystectomy Accessory splenule Simple appearing bilateral renal cysts Focal L2-L3 degenerative change Hysterectomy Dictated by: Alirio Wilkins M.D. on 10/10/2023 at 22:46 Approved by: Alirio Wilkins M.D. on 10/10/2023 at 22:51 [facility] Narrative Medical decision making narrative: Very uncomfortable patient presenting for lower abdominal quadrant pain that is concerning for recurrence of diverticulitis. Abdomen is soft but she was markedly tender in the bilateral lower quadrants. She was noted to be markedly hypertensive, but is in significant pain. We will order labs, CT imaging, pain medications and see if this corrects her hypertension. Patient is still hypertensive despite 2 doses of pain medications and IV hydralazine ordered. Laboratory work is reviewed, significant for WBC count 6.9, hemoglobin 12.9, platelets 268, sodium 138, potassium 4.2, creatinine 0.8, normal liver enzymes. CT of the abdomen and pelvis is surprising, significant for small bowel obstruction. Patient does have history of cholecystectomy and possibly related to adhesions from that surgery. Patient recommended to have an NG-tube placed, she states ?you will have to knock me out otherwise it has not happening?. Plan to admit patient for further treatment of this condition. Discharge Plan Departure Patient Disposition: Admitted As Inpatient Clinical Impression: Small bowel obstruction, Hypertension Admit Date/Time: 10/11/23 00:56 Admit Provider: Noe Chauhan
[2023-10-10 23:00] VITALS: PULSE 71; RESP 45; O2SAT 94
[2023-10-10 23:03] LABS: Lactate (Lactic Acid) 0.7 mmol/L (0.7-2.1)
[2023-10-10 23:04] LABS: Alanine Aminotransferase 20 IU/L (<35); Albumin 4.2 g/dL (3.5-5.0); Albumin Globulin Ratio 1.2 (1.0-2.8); Alkaline Phosphatase 66 U/L (38-126); Aspartate Aminotransferase 24 IU/L (14-36); BUN Creatinine Ratio 26.3 (6-22); Bilirubin Total 0.4 mg/dL (0.2-1.3); Blood Urea Nitrogen 21 mg/dL (7-17); Calcium 9.9 mg/dL (8.4-10.2); Carbon Dioxide 31 mmol/L (22-32); Chloride 105 mmol/L (98-107); Estimated Glomerular Filt Rate > 60 mL/min (>60); Globulin 3.6 g/dL (1.7-4.1); Glucose 106 mg/dL (80-110); HEMOLYSIS < 15 (0-50); Lipase 128 U/L (23-300); Potassium 4.2 mmol/L (3.4-5.1); Sodium 138 mmol/L (137-145); Total Protein 7.8 g/dL (6.3-8.2)
[2023-10-10] MEDS: MORPHINE 4 MG/ML INJ IV (23:12)
[2023-10-10] MEDS: ONDANSETRON 4 MG/2 ML INJ IV (23:12)
[2023-10-10 23:25] VITALS: BP 213/93; PULSE 77; RESP 13
[2023-10-10 23:30] VITALS: BP 202/93; PULSE 73; RESP 18; O2SAT 94
[2023-10-11] VITALS (24 sets, daily range): BP systolic 140–236; BP diastolic 61–100; PULSE 72–111; RESP 16–30; TEMP 35.9–36.9; O2SAT 92–97; BMI 31.4
[2023-10-11 00:18] LABS: Appearance Urine UA CLEAR; Bilirubin Urine UA NEGATIVE (NEGATIVE); Color Urine UA YELLOW; Glucose Urine UA NEGATIVE (Negative); Ketones Urine UA NEGATIVE (NEGATIVE); Leukocyte Esterase Urine UA NEGATIVE (NEGATIVE); Nitrite Urine UA NEGATIVE (Negative); Occult Blood Urine UA TRACE-INTACT (Negative); Protein Urine UA NEGATIVE (Negative); Specific Gravity Urine UA 1.015 (1.000-1.035); Urobilinogen Urine UA 0.2 E.U./dL (0.2)
[2023-10-11 00:24] LABS: pH Urine UA 5.5 (4.5-8.0)
[2023-10-11 00:25] LABS: Bacteria Urine None Seen; Culture Indicated Urine Cult Not Indicated; RBC Urine 0-1/HPF (0-5/HPF); Squamous Epithelial Cell Urine 0-1 /HPF (0-5/HPF); Urine Volume 10mL (spun); WBC Urine None Seen (0-5/HPF)
[2023-10-11] MEDS: HYDRALAZINE 20 MG/ML VIAL IV (00:46)
[2023-10-11] MEDS: MORPHINE 4 MG/ML INJ IV ×2 (00:46→04:43)
[2023-10-11] MEDS: SODIUM CHLORIDE 0.9% 1,000 ML 125 ML IV (00:57)
--- NOTE | 2023-10-11 01:13 | PM.HP.1 ---
History of Present Illness History of Present Illness Date Patient Seen: 10/11/23 Chief complaint: abdominal pain and distension Narrative: 78 y/o with PMH of HTN, HLD, hypothyroidism, depression, diverticulosis of colon and cholecystectomy 12 years ago, presented to ED with sudden onset of lower abdominal pain, abdominal distension and nausea. She thought that she has diverticulitis. CT showing small bowel obstruction. Could not tolerate NGT placement. [facility] Medical History Herniated nucleus pulposus, L2-3 Plantar warts Fractures History of mumps History of measles History of chickenpox Cataracts, bilateral (~2009) Endometriosis (~1966) Diverticulosis (~2019) Cardiac arrhythmia (~1989) Hypothyroid Hypertension (~1964) Surgical History History of cataract surgery (~2019) Hx of hemorrhoidectomy (~1969) Anesthesia (~1974) History of cholecystectomy (~1999) History of hysterectomy (~1974) Family History Father Hypertension Congestive heart failure Mother Hypertension Congestive heart failure Social History household members: family Smoking Status: Former smoker Tobacco: How many years used: 50 quit status: has quit before alcohol intake: current substance use type: marijuana Meds Home Medications and Allergies Home Medications Medication Instructions Recorded Confirmed Type conjugated estrogens 0.625 mg 0.625 mg PO QDAY ##0 08/25/11 10/11/23 History tablet (Premarin) lisinopril 5 mg tablet 5 mg PO QDAY ##0 08/25/11 10/11/23 History carvedilol 25 mg tablet 25 mg PO BID #180 tabs 02/20/21 10/11/23 Rx aspirin 81 mg tablet,delayed 81 mg PO DAILY #30 tabs 10/26/22 10/11/23 Rx release atorvastatin 20 mg tablet (Lipitor) 20 mg PO BEDTIME #30 tabs 10/26/22 10/11/23 Rx fluoxetine 20 mg capsule (Prozac) 20 mg PO ONCE #30 caps 10/26/22 10/11/23 Rx levothyroxine 50 mcg tablet 50 mcg PO DAILY@0600 #30 tabs 10/26/22 10/11/23 Rx (Synthroid) Allergies Allergy/AdvReac Type Severity Reaction Status Date / Time codeine Allergy Mild rash, Verified 10/25/22 16:53 vomiting Review of Systems Constitutional Comments: w/o fever or chills Cardiovascular Comments: wo palpitations or chest pain Respiratory Comments: w/o shortness of breath Gastrointestinal Comments: Nausea, abdominal distension and pain Exam Vital Signs (past 8 hours): - 10/10/23 22:21 10/10/23 22:38 10/10/23 22:38 Temperature 97.0 F L Pulse Rate 85 76 Respiratory Rate 20 37 H Blood Pressure 241/102 H 212/101 H Pulse Oximetry 97 94 Oxygen Delivery Method Room Air Oxygen Flow Rate 10/10/23 23:00 10/10/23 23:25 10/10/23 23:25 Temperature Pulse Rate 71 77 Respiratory Rate 45 H 13 Blood Pressure 213/93 H Pulse Oximetry 94 Oxygen Delivery Method Oxygen Flow Rate 10/10/23 23:30 10/10/23 23:30 10/11/23 00:02 Temperature Pulse Rate 73 80 Respiratory Rate 18 Blood Pressure 202/93 H Pulse Oximetry 94 93 Oxygen Delivery Method Oxygen Flow Rate 10/11/23 00:46 10/11/23 01:06 10/11/23 01:06 Temperature 98.5 F Pulse Rate 74 78 Respiratory Rate 16 Blood Pressure 236/99 H 160/70 H Pulse Oximetry 94 Oxygen Delivery Method Room Air Oxygen Flow Rate 0 Oxygen Delivery Method Room Air Oxygen Flow Rate 0 Const Other: In no distress Resp Other: tachypnea Cardio Other: RRR GI Other: mildly distended and diffusely tender abdomen Skin Other: not jaundiced Neuro Other: w/o deficits Extrem Other: w/o swelling Psych Other: appropriate mood Objective Labs 10/11/23 05:31 10/11/23 05:31 Labs: Laboratory Results - last 24 hr 10/10/23 10/11/23 22:31 00:02 WBC 6.9 RBC 4.94 Hgb 12.9 Hct 40.1 MCV 81.3 MCH 26.1 MCHC 32.2 RDW 15.0 H Plt Count 268 Neut % (Auto) 56.0 Lymph % (Auto) 29.6 [place] % (Auto) 9.6 Eos % (Auto) 4.1 H Baso % (Auto) 0.7 Neut # (Auto) 3900 Lymph # (Auto) 2000 [place] # (Auto) 700 Eos # (Auto) 300 Baso # (Auto) 0 Sodium 138 Potassium 4.2 Chloride 105 Carbon Dioxide 31 BUN 21 H Creatinine 0.80 Estimated GFR > 60 BUN/Creatinine Ratio 26.3 H Glucose 106 Lactate 0.7 Calcium 9.9 Total Bilirubin 0.4 AST 24 ALT 20 Alkaline Phosphatase 66 Total Protein 7.8 Albumin 4.2 Globulin 3.6 Albumin/Globulin Ratio 1.2 Lipase 128 Urine Color Yellow Urine Appearance Clear Urine pH 5.5 Ur Specific [place] 1.015 Urine Protein Negative Urine Glucose (UA) Negative Urine Ketones Negative Urine Occult Blood Trace-intact Urine Nitrate Negative Urine Bilirubin Negative Urine Urobilinogen 0.2 Ur Leukocyte Esterase Negative Urine RBC 0-1/hpf Urine WBC None seen Ur Squamous Epith Cells 0-1 /hpf Urine Bacteria None seen Ur Culture Indicated? Cult not indicated Vol Urine Centrifuged 10ml (spun) Assessment & Plan Assessment and plan (1) Small bowel obstruction: Status: Acute (2) Depression: Qualifiers: Depression Type: major depressive disorder Major depression recurrence: recurrent Active/Remission status: in full remission Qualified Code(s): F33.42 - Major depressive disorder, recurrent, in full remission Status: Chronic (3) Hypothyroid: Qualifiers: Hypothyroidism type: acquired Qualified Code(s): E03.9 - Hypothyroidism, unspecified Status: Chronic (4) Hypertension: Status: Chronic (5) Chronic low back pain: Qualifiers: Back pain laterality: midline Sciatica presence: without sciatica Qualified Code(s): M54.5 - Low back pain; G89.29 - Other chronic pain Status: Chronic (6) Diabetes: Status: Acute Assessment & Plan narrative: SBO - possibly adhesions from prior laparotomy - NPO, IVFs, NGT for low intermittent suction if becomes more symptomatic, refused tube on admission Depression - Prozac on hold Hypothyroidism - levothyroxine on hold Hypertension - metoprolol and lisinopril on hold - prn iv hydralazine and iv metoprolol - uncontrolled hypertension on arrival to ED DM - SS DVT prophylaxis - SCDs
[2023-10-11] MEDS: DEXTROSE 5%-0.45NS W/KCL 20MEQ 1,000 ML 100 MEQ IV (02:17)
--- NOTE | 2023-10-11 02:42 | PC.ADMIT ---
[address] Admission Note: Patient admitted to ACU from ED at 01:40, SBA for transfer to bed. Alert and oriented x 4, cooperative. Denies pain, but reports discomfort and nausea. Declined anti-nausea medication at this time. D5 1/2 NS with 20mEq Potassium running at 100/hr. NPO, patient aware. BS 144. Oriented to room and call light, Bed low and locked. Call light within reach. The patient,Uzma Wells,78 y/o, was given written information regarding hospital policies, unit procedures and contact persons. Patient's smoking status: Former smoker. Vital Signs - 8 hr 10/10/23 22:21 10/10/23 22:38 10/10/23 22:38 Temperature 97.0 F L Pulse Rate 85 76 Respiratory Rate 20 37 H Blood Pressure 241/102 H 212/101 H Pulse Oximetry 97 94 Oxygen Delivery Method Room Air Oxygen Flow Rate 10/10/23 23:00 10/10/23 23:25 10/10/23 23:25 Temperature Pulse Rate 71 77 Respiratory Rate 45 H 13 Blood Pressure 213/93 H Pulse Oximetry 94 Oxygen Delivery Method Oxygen Flow Rate 10/10/23 23:30 10/10/23 23:30 10/11/23 00:02 Temperature Pulse Rate 73 80 Respiratory Rate 18 Blood Pressure 202/93 H Pulse Oximetry 94 93 Oxygen Delivery Method Oxygen Flow Rate 10/11/23 00:30 10/11/23 00:31 10/11/23 00:31 Temperature Pulse Rate 72 72 Respiratory Rate 30 H 30 H Blood Pressure 211/100 H Pulse Oximetry 93 96 Oxygen Delivery Method Oxygen Flow Rate 10/11/23 00:46 10/11/23 00:51 10/11/23 00:51 Temperature Pulse Rate 74 75 Respiratory Rate 26 H Blood Pressure 236/99 H 236/99 H Pulse Oximetry 92 Oxygen Delivery Method Oxygen Flow Rate 10/11/23 01:00 10/11/23 01:05 10/11/23 01:05 Temperature Pulse Rate 84 79 Respiratory Rate 28 H 28 H Blood Pressure 160/70 H Pulse Oximetry 93 95 Oxygen Delivery Method Oxygen Flow Rate 10/11/23 01:06 10/11/23 01:06 10/11/23 01:30 Temperature 98.5 F Pulse Rate 78 76 Respiratory Rate 16 28 H Blood Pressure 160/70 H 140/63 Pulse Oximetry 94 92 Oxygen Delivery Method Room Air Oxygen Flow Rate 0 10/11/23 01:40 10/11/23 01:58 Temperature 96.7 F L Pulse Rate 78 78 Respiratory Rate 20 Blood Pressure 141/61 H 141/61 H Pulse Oximetry 94 Oxygen Delivery Method Oxygen Flow Rate 0
[2023-10-11] MEDS: ONDANSETRON 4 MG/2 ML INJ IV ×4 (03:52→22:30)
[2023-10-11 05:54] LABS: Add Manual Diff / Slide Review NO; Basophils Absolute Auto 100 /uL (0-100); Basophils Percent Auto 0.7 % (0-2); Eosinophils Absolute Auto 0 /uL (0-450); Eosinophils Percent Auto 0.4 % (2-4); Hematocrit 38.9 % (36-46); Hemoglobin 12.6 g/dL (12.0-16.0); Lymphocytes Absolute Auto 1000 /uL (1100-4500); Lymphocytes Percent Auto 12.1 % (25-40); Mean Corpuscular HGB Conc 32.4 % (30-36); Mean Corpuscular Hemoglobin 26.2 PG (26-34); Mean Corpuscular Volume 80.9 fL (80-100); Monocytes Absolute Auto 300 /uL (0-900); Monocytes Percent Auto 3.8 % (3-14); Neutrophils Absolute Auto 6500 /uL (1500-7000); Platelet Count 251 X10^3/uL (150-400); Red Blood Cell Count 4.81 X10^6/uL (4.0-5.2); White Blood Cell Count 7.9 X10^3/uL (4.5-11.0)
[2023-10-11 06:21] LABS: BUN Creatinine Ratio 27.4 (6-22); Blood Urea Nitrogen 17 mg/dL (7-17); Calcium 9.5 mg/dL (8.4-10.2); Carbon Dioxide 28 mmol/L (22-32); Chloride 105 mmol/L (98-107); Estimated Glomerular Filt Rate > 60 mL/min (>60); Glucose 162 mg/dL (80-110); Potassium 4.7 mmol/L (3.4-5.1); Sodium 137 mmol/L (137-145)
[2023-10-11 06:23] LABS: HEMOLYSIS 73 (0-50)
--- NOTE | 2023-10-11 07:15 | P.HP_ITS ---
History of Present Illness History of Present Illness Date Patient Seen: 10/11/23 Chief complaint: abdominal pain and distension Narrative: From night doctor: 78 y/o with PMH of HTN, HLD, hypothyroidism, depression, diverticulosis of colon and cholecystectomy 12 years ago, presented to ED with sudden onset of lower abdominal pain, abdominal distension and nausea. She thought that she has diverticulitis. CT showing small bowel obstruction. Could not tolerate NGT placement. Recent information: Last surgery was about 14 years ago. She denies any known previous bowel obstruction. She has had ongoing severe recurrent abdominal pain since being admitted. She vomited too small volume emesis over the last several hours. She does not feel she can tolerate an NG-tube. She denies any flatus or bowel movements. [facility] Medical History Herniated nucleus pulposus, L2-3 Plantar warts Fractures History of mumps History of measles History of chickenpox Cataracts, bilateral (~2009) Endometriosis (~1966) Diverticulosis (~2019) Cardiac arrhythmia (~1989) Hypothyroid Hypertension (~1965) Surgical History History of cataract surgery (~2019) Hx of hemorrhoidectomy (~1969) Anesthesia (~1974) History of cholecystectomy (~1999) History of hysterectomy (~1974) Family History Father Hypertension Congestive heart failure Mother Hypertension Congestive heart failure Social History household members: family Smoking Status: Former smoker Tobacco: How many years used: 50 quit status: has quit before alcohol intake: current substance use type: marijuana Meds Home Medications and Allergies Home Medications Medication Instructions Recorded Confirmed Type conjugated estrogens 0.625 mg 0.625 mg PO QDAY ##0 08/25/11 10/11/23 History tablet (Premarin) lisinopril 5 mg tablet 5 mg PO QDAY ##0 08/25/11 10/11/23 History carvedilol 25 mg tablet 25 mg PO BID #180 tabs 02/20/21 10/11/23 Rx aspirin 81 mg tablet,delayed 81 mg PO DAILY #30 tabs 04/22/23 04/06/24 Rx release atorvastatin 20 mg tablet (Lipitor) 20 mg PO BEDTIME #30 tabs 10/26/22 10/11/23 Rx fluoxetine 20 mg capsule (Prozac) 20 mg PO ONCE #30 caps 10/26/22 10/11/23 Rx levothyroxine 50 mcg tablet 50 mcg PO DAILY@0600 #30 tabs 10/26/22 10/11/23 Rx (Synthroid) Allergies Allergy/AdvReac Type Severity Reaction Status Date / Time codeine Allergy Mild rash, Verified 10/25/22 16:53 vomiting Review of Systems Review of Systems Narrative: All else reviewed and otherwise unremarkable except as noted in the history and physical. Exam Vital Signs (past 8 hours): - 10/10/23 23:25 10/10/23 23:25 10/10/23 23:30 Temperature Pulse Rate 77 Respiratory Rate 13 Blood Pressure 213/93 H 202/93 H Pulse Oximetry Oxygen Delivery Method Oxygen Flow Rate 10/10/23 23:30 10/11/23 00:02 10/11/23 00:30 Temperature Pulse Rate 73 80 72 Respiratory Rate 18 30 H Blood Pressure Pulse Oximetry 94 93 93 Oxygen Delivery Method Oxygen Flow Rate 10/11/23 00:31 10/11/23 00:31 10/11/23 00:46 Temperature Pulse Rate 72 74 Respiratory Rate 30 H Blood Pressure 211/100 H 236/99 H Pulse Oximetry 96 Oxygen Delivery Method Oxygen Flow Rate 10/11/23 00:51 10/11/23 00:51 10/11/23 01:00 Temperature Pulse Rate 75 84 Respiratory Rate 26 H 28 H Blood Pressure 236/99 H Pulse Oximetry 92 93 Oxygen Delivery Method Oxygen Flow Rate 10/11/23 01:05 10/11/23 01:05 10/11/23 01:06 Temperature Pulse Rate 79 78 Respiratory Rate 28 H 16 Blood Pressure 160/70 H 160/70 H Pulse Oximetry 95 94 Oxygen Delivery Method Room Air Oxygen Flow Rate 0 10/11/23 01:06 10/11/23 01:22 10/11/23 01:30 Temperature 98.5 F Pulse Rate 76 Respiratory Rate 28 H Blood Pressure 140/63 Pulse Oximetry 92 Oxygen Delivery Method Room Air Oxygen Flow Rate 10/11/23 01:40 10/11/23 01:58 Temperature 96.7 F L Pulse Rate 78 78 Respiratory Rate 20 Blood Pressure 141/61 H 141/61 H Pulse Oximetry 94 Oxygen Delivery Method Oxygen Flow Rate 0 Oxygen Delivery Method Room Air Oxygen Flow Rate 0 Narrative Exam Narrative: Uncomfortable and in moderate distress, alert and oriented, fluent speech, calm. Normocephalic skull, EOMI, anicteric sclera, symmetric pupils. Oropharynx unremarkable, no droop. Neck supple, midline trachea, no adenopathy. Lungs clear, normal rate and effort. Heart regular, no murmur gallop or rub. Abdomen is soft, non distended and minimally tender. Extremities are free of edema. Skin is free of rash or lesions. Joints are not swollen or deformed. Judgment appears to be normal. Objective Imaging CT scan - abdomen: Radiologist's impression: Small-bowel obstruction, with a transition point seen within the right lower quadrant. Colonic diverticulosis is seen, without findings of active diverticulitis. Within the liver, there is a region of increased enhancement, which is similar to priors and regarded to be benign. Additional findings: Cholecystectomy Accessory splenule Simple appearing bilateral renal cysts Focal L2-L3 degenerative change Hysterectomy Labs 10/11/23 05:31 10/11/23 05:31 Labs: Laboratory Results - last 24 hr 10/10/23 10/11/23 10/11/23 22:31 00:02 05:31 WBC 6.9 7.9 RBC 4.94 4.81 Hgb 12.9 12.6 Hct 40.1 38.9 MCV 81.3 80.9 MCH 26.1 26.2 MCHC 32.2 32.4 RDW 15.0 H 15.0 H Plt Count 268 251 Neut % (Auto) 56.0 83.0 H D Lymph % (Auto) 29.6 12.1 L [place] % (Auto) 9.6 3.8 Eos % (Auto) 4.1 H 0.4 L Baso % (Auto) 0.7 0.7 Neut # (Auto) 3900 6500 Lymph # (Auto) 2000 1000 L [place] # (Auto) 700 300 Eos # (Auto) 300 0 Baso # (Auto) 0 100 Sodium 138 137 Potassium 4.2 4.7 Chloride 105 105 Carbon Dioxide 31 28 BUN 21 H 17 Creatinine 0.80 0.62 Estimated GFR > 60 > 60 BUN/Creatinine Ratio 26.3 H 27.4 H Glucose 106 162 H Lactate 0.7 Calcium 9.9 9.5 Total Bilirubin 0.4 AST 24 ALT 20 Alkaline Phosphatase 66 Total Protein 7.8 Albumin 4.2 Globulin 3.6 Albumin/Globulin Ratio 1.2 Lipase 128 Urine Color Yellow Urine Appearance Clear Urine pH 5.5 Ur Specific [place] 1.015 Urine Protein Negative Urine Glucose (UA) Negative Urine Ketones Negative Urine Occult Blood Trace-intact Urine Nitrate Negative Urine Bilirubin Negative Urine Urobilinogen 0.2 Ur Leukocyte Esterase Negative Urine RBC 0-1/hpf Urine WBC None seen Ur Squamous Epith Cells 0-1 /hpf Urine Bacteria None seen Ur Culture Indicated? Cult not indicated Vol Urine Centrifuged 10ml (spun) Assessment & Plan Assessment & Plan narrative: 1. SBO, present on admission and active. 2. HTN, , present on admission and active. 3. DM 2, , present on admission and active. 4. Hypothyroidism, , present on admission and active. 5. Depression, , present on admission and active. PLAN: -NPO -IVF -analgesia -surgical consult called at 9:00 a.m., Dr. Medina. Full resuscitation. DVT prophylaxis - SCDs Time Spent With Patient Time with patient: 30 to 49 minutes with 50% spent counseling/coordinating care Quality MIPS - Admit I confirm the patient?s Advance Care Plan is present, Code status is documented, Surrogate decision maker is in patient?s record [If Yes, STOP here]: Yes MIPS - Meds 'Current medications' to include all prescriptions, [id number] products, herbals, cannabis/cannabidiol products, and vitamin/mineral/dietary (nutritional) supplements. I have utilized all available resources to obtain, update, or review the patient?s current medications. [If Yes, STOP here]: Yes
[2023-10-11] MEDS: HYDROMORPHONE 0.5 MG INJ IV ×2 (09:59→20:00)
[2023-10-11] MEDS: SODIUM CHLORIDE 0.9% 1,000 ML 100 ML IV ×2 (10:00→19:38)
--- NOTE | 2023-10-11 10:52 | DI.RAD.S_ITS ---
PROCEDURE: XR GASTROGRAFIN CHALLENGE COMPARISON: None. INDICATIONS: sbo FINDINGS: Gastrografin was orally administered, and 2 abdominal radiographs were obtained. Enteric contrast is noted in the gastric fundus as well as in the proximal dilated small bowel measuring up to 3.7 cm in diameter. No contrast in the colon. There is contrast over within the urinary bladder. IMPRESSION: Small bowel obstruction. Proximal small bowel is dilated up to 3.7 cm Approved by: Humberto Thomas M.D. on 10/11/2023 at 16:26
[2023-10-11] MEDS: HYDRALAZINE 20 MG/ML VIAL 10 MG IV ×3 (14:02→23:25)
--- NOTE | 2023-10-11 14:19 | P.CONS_ITS ---
History of Present Illness Consult details Date Patient Seen: 10/11/23 Time Patient Seen: 14:19 Chief complaint: abdominal pain and distension Narrative: 78F history of severe endometriosis sp hysterectomy and cholecystectomy who is admitted to [facility] with a small bowel obstruction. She developed abdominal pain with associated nausea and emesis over the past [address] A/P demonstrates a small bowel obstruction with transition point RLQ, no free air or free fluid. No further emesis over the past several hours she declines NGT. Meds Home Medications and Allergies Home Medications Medication Instructions Recorded Confirmed Type conjugated estrogens 0.625 mg 0.625 mg PO QDAY ##0 08/25/11 10/11/23 History tablet (Premarin) lisinopril 5 mg tablet 5 mg PO QDAY ##0 08/25/11 10/11/23 History carvedilol 25 mg tablet 25 mg PO BID #180 tabs 02/20/21 10/11/23 Rx aspirin 81 mg tablet,delayed 81 mg PO DAILY #30 tabs 10/26/22 10/11/23 Rx release atorvastatin 20 mg tablet (Lipitor) 20 mg PO BEDTIME #30 tabs 10/26/22 10/11/23 Rx fluoxetine 20 mg capsule (Prozac) 20 mg PO ONCE #30 caps 10/26/22 10/11/23 Rx levothyroxine 50 mcg tablet 50 mcg PO DAILY@0600 #30 tabs 10/26/22 10/11/23 Rx (Synthroid) Allergies Allergy/AdvReac Type Severity Reaction Status Date / Time codeine Allergy Mild rash, Verified 10/25/22 16:53 vomiting Exam Vital Signs (past 8 hours): - 10/11/23 07:00 10/11/23 08:40 10/11/23 11:44 Temperature 97.2 F L 97.5 F L Pulse Rate 99 H 97 H Respiratory Rate 16 16 Blood Pressure 140/62 174/63 H Pulse Oximetry 96 96 Oxygen Delivery Method Room Air Oxygen Flow Rate 0 10/11/23 14:02 Temperature Pulse Rate 92 H Respiratory Rate Blood Pressure 186/75 H Pulse Oximetry Oxygen Delivery Method Oxygen Flow Rate Oxygen Delivery Method Room Air Oxygen Flow Rate 0 Narrative Exam Narrative: Gen-Elderly woman, alert and oriented Chest-Non labored resp Abdomen-Compressible tender no peritonitis, slight distention Objective Labs 10/11/23 05:31 10/11/23 05:31 Labs: Laboratory Results - last 24 hr 10/10/23 10/11/23 10/11/23 22:31 00:02 05:31 WBC 6.9 7.9 RBC 4.94 4.81 Hgb 12.9 12.6 Hct 40.1 38.9 MCV 81.3 80.9 MCH 26.1 26.2 MCHC 32.2 32.4 RDW 15.0 H 15.0 H Plt Count 268 251 Neut % (Auto) 56.0 83.0 H D Lymph % (Auto) 29.6 12.1 L [place] % (Auto) 9.6 3.8 Eos % (Auto) 4.1 H 0.4 L Baso % (Auto) 0.7 0.7 Neut # (Auto) 3900 6500 Lymph # (Auto) 2000 1000 L [place] # (Auto) 700 300 Eos # (Auto) 300 0 Baso # (Auto) 0 100 Sodium 138 137 Potassium 4.2 4.7 Chloride 105 105 Carbon Dioxide 31 28 BUN 21 H 17 Creatinine 0.80 0.62 Estimated GFR > 60 > 60 BUN/Creatinine Ratio 26.3 H 27.4 H Glucose 106 162 H Lactate 0.7 Calcium 9.9 9.5 Total Bilirubin 0.4 AST 24 ALT 20 Alkaline Phosphatase 66 Total Protein 7.8 Albumin 4.2 Globulin 3.6 Albumin/Globulin Ratio 1.2 Lipase 128 Urine Color Yellow Urine Appearance Clear Urine pH 5.5 Ur Specific [place] 1.015 Urine Protein Negative Urine Glucose (UA) Negative Urine Ketones Negative Urine Occult Blood Trace-intact Urine Nitrate Negative Urine Bilirubin Negative Urine Urobilinogen 0.2 Ur Leukocyte Esterase Negative Urine RBC 0-1/hpf Urine WBC None seen Ur Squamous Epith Cells 0-1 /hpf Urine Bacteria None seen Ur Culture Indicated? Cult not indicated Vol Urine Centrifuged 10ml (spun) [facility] Medical History Herniated nucleus pulposus, L2-3 Plantar warts Fractures History of mumps History of measles History of chickenpox Cataracts, bilateral (~2009) Endometriosis (~1966) Diverticulosis (~2019) Cardiac arrhythmia (~1989) Hypothyroid Hypertension (~1965) Surgical History History of cataract surgery (~2019) Hx of hemorrhoidectomy (~1969) Anesthesia (~1974) History of cholecystectomy (~1999) History of hysterectomy (~1974) Family History Father Hypertension Congestive heart failure Mother Hypertension Congestive heart failure Social History household members: family Tobacco & Substance Use Smoking Status: Former smoker Tobacco: How many years used: 50 quit status: has quit before alcohol intake: current substance use type: marijuana Assessment & Plan Assessment and plan (1) Small bowel obstruction: Status: Acute Assessment & Plan narrative: 78F with hx severe endometriosis sp hysterectomy with a small bowel obstruction likely secondary to adhesive disease. No indication for acute surgical intervention at this time. Will proceed with conservative management, NGT if willing, gastrografin challenge.
[2023-10-11] MEDS: LORazepam 2 MG/ML INJ 0.5 MG IV (16:27)
[2023-10-12] VITALS (22 sets, daily range): BP systolic 109–182; BP diastolic 37–80; PULSE 87–107; RESP 12–26; TEMP 36.3–37; O2SAT 93–96; BMI 31.4
[2023-10-12] MEDS: HYDROMORPHONE 0.5 MG INJ IV (00:38)
[2023-10-12] MEDS: LORazepam 2 MG/ML INJ 0.5 MG IV ×2 (00:39→09:28)
[2023-10-12] MEDS: SODIUM CHLORIDE 0.9% 1,000 ML 100 ML IV ×2 (05:33→18:28)
--- NOTE | 2023-10-12 07:00 | DI.RAD.S_ITS ---
PROCEDURE: XR ABDOMEN 1V INDICATIONS: sbo TECHNIQUE: One view of the abdomen acquired. COMPARISON: [facility], CT, CT ABDOMEN PELVIS W CON, 10/10/2023, 23:11. [facility], CR, XR GASTROGRAFIN CHALLENGE, 10/11/2023, 16:14. FINDINGS: Surgical changes and devices: None. Bowel: Continued dilated small bowel loops containing very dilute Gastrografin. Small bowel loops measure up to 4.8 cm. Soft tissues: No suspicious abdominal calcifications. Visualized solid organ contours appear normal in size. Bones: No suspicious bony lesions. IMPRESSION: Continued small bowel obstruction. Dictated by: Abhay Rushing M.D. on 10/12/2023 at 7:34 Approved by: Abhay Rushing M.D. on 10/12/2023 at 7:36
--- NOTE | 2023-10-12 07:12 | P.PN_ITS ---
Subjective Subjective Interval history: Ongoing nausea and vomiting. Gastrografin challenge was positive for SBO. No flatus. Some abdomen pain. Exam Vital Signs (past 8 hours): - 10/11/23 23:20 10/11/23 23:25 10/12/23 00:20 Temperature 97.4 F L Pulse Rate 103 H 103 H 103 H Respiratory Rate 16 Blood Pressure 174/80 H 174/80 H 154/67 H Pulse Oximetry 97 Oxygen Flow Rate 1 10/12/23 00:34 10/12/23 05:39 Temperature 97.4 F L Pulse Rate 103 H 96 H Respiratory Rate 16 Blood Pressure 154/67 H 139/71 Pulse Oximetry 95 Oxygen Flow Rate 1 Fraction of Inspired Oxygen 24 SaO2/FiO2 Ratio 395 Oxygen Delivery Method Nasal Cannula Oxygen Flow Rate 1 Narrative Exam Narrative: Uncomfortable, alert and oriented. Fluent speech. Vomiting. Bent over. Lungs are clear, normal rate and effort. Heart is regular, no murmur gallop or rub. Abdomen is soft, non distended. Extremities are free of edema. Objective Imaging Gastrografin Challenge: Radiologist's impression: Small bowel obstruction. Proximal small bowel is dilated up to 3.7 cm Labs 10/11/23 05:31 10/11/23 05:31 [facility]ENDING SALE TO [facility] Medical History Herniated nucleus pulposus, L2-3 Plantar warts Fractures History of mumps History of measles History of chickenpox Cataracts, bilateral (~2010) Endometriosis (~1967) Diverticulosis (~2020) Cardiac arrhythmia (~1989) Hypothyroid Hypertension (~1965) Surgical History History of cataract surgery (~2019) Hx of hemorrhoidectomy (~1970) Anesthesia (~1974) History of cholecystectomy (~1999) History of hysterectomy (~1974) Family History Father Hypertension Congestive heart failure Mother Hypertension Congestive heart failure Social History household members: family Smoking Status: Former smoker Tobacco: How many years used: 50 quit status: has quit before alcohol intake: current substance use type: marijuana Assessment & Plan Assessment & Plan narrative: 1. SBO, present on admission and active. 2. HTN, , present on admission and active. 3. DM 2, , present on admission and active. 4. Hypothyroidism, , present on admission and active. 5. Depression, , present on admission and active. PLAN: -NPO continue. -IVF, continue. -analgesia, continue. -discuss with surgery, may need surgery.
[2023-10-12] MEDS: ONDANSETRON 4 MG/2 ML INJ IV ×3 (07:23→14:40)
[2023-10-12] MEDS: HYDRALAZINE 20 MG/ML VIAL 10 MG IV ×2 (09:17→19:50)
--- NOTE | 2023-10-12 10:25 | PM.CALLCOV.1 ---
Call Coverage Note Note Date of Patient Contact: 10/12/23 Time of Patient Contact: 10:25 Narrative of Care Provided: 78-year-old woman with a history of endometriosis and hysterectomy admitted with a small-bowel obstruction. No meaningful progress with Gastrografin challenge, small amount of contrast remains within the small bowel but there was no advancement of contrast into the colon. She remains in pain and nauseous. Discussed with the patient and her sister recommendations to proceed with exploratory laparotomy possible lysis of adhesions possible small-bowel resection. Overview of the operation was discussed. Operative risks including but not limited to infection, hemorrhage, damage to surrounding structures, anastomotic leak, and rare but serious complications such as myocardial infarction stroke, and were reviewed. Her questions have been answered she is in agreement with this plan. OR today10/11 noon for exploratory laparotomy
[2023-10-12] MEDS: LACTATED RINGERS 1,000 ML 42 ML IV (11:21)
[2023-10-12] MEDS: CEFAZOLIN VIAL 2 GM in SODIUM CHLORIDE 0.9% 100 ML IV (12:40)
[2023-10-12] MEDS: PIPERACILLIN/TAZO 4.5 GM in SODIUM CHLORIDE 0.9% 100 ML IV (12:45)
--- NOTE | 2023-10-12 12:49 | SUR.OPER ---
Supine on padded OR bed, head on pillow, arms secured on padded arm boards at <90 degrees abduction, legs uncrossed, safety belt at thigh, tape over blanket over lower legs.
[2023-10-12] MEDS: ACETAMINOPHEN IV 1,000 MG/100 ML VIAL 400 MG IV (13:08)
[2023-10-12] MEDS: BUPIVACAINE 0.25% (PF) VIAL 60 ML INJ (13:11)
--- NOTE | 2023-10-12 13:49 | PM.OP.1 ---
Operative Date/Time/Diagnoses Date of procedure: 10/12/23 Time of procedure: 13:49 Pre-op diagnosis: Small-bowel obstruction Post-op diagnosis: same Procedure & Clinicians Procedure: Exploratory laparotomy Detorsion of small bowel volvulus Same procedure as scheduled: Yes Indications: 78-year-old woman with a history of endometriosis and hysterectomy who is admitted with a small-bowel obstruction. She failed to progress with conservative management and following discussion elects to proceed with exploratory laparotomy. Surgeon: Everton Medina Click Yes if Unassisted: Yes Anesthesia Type: General Operative Notes Findings: Small-bowel volvulus in the right lower quadrant. Small-bowel viable. Specimen(s): none sent Estimated Blood Loss (mL): 10 Procedure in detail: Patient was brought to the operating room placed supine on the table. Bilateral lower extremity compression devices were applied. General anesthesia was induced and she was intubated with an endotracheal tube. Dobbins catheter was sterilely placed. She was then prepped and draped in sterile fashion. Time-out was performed. A midline laparotomy was made. The abdomen was entered. The small bowel was dilated and was eviscerated from the abdomen. Within the right lower quadrant there was a small-bowel volvulus which was manually de torsed. The small bowel was inspected and found to be viable. The small bowel was then run in its entirety twice from the terminal ileum to the ligament of Treitz. There were no other abnormalities within the bowel. The bowel was returned to the abdomen. The abdomen was irrigated and irrigation returned clear. The fascia was then closed in running manner using a 1. PDS suture. The subcutaneous tissue was reapproximated using 3-0 Vicryl. Skin was closed with Monocryl followed by the application of Dermabond and an Aquacel dressing. The sponge and instrument count was correct x2. She emerged from anesthesia and was transferred to recovery in stable condition. Complications: none Post-operative Condition: stable Disposition: Acute Care
--- NOTE | 2023-10-12 15:10 | CM.DANOTE ---
Initial DCP Assessment Note Pt is a 78 yo female, resident of [place], admitted with SBO, now POD#0 from Exploratory laparotomy by Dr Medina. PCP: Not Listed Payer: [facility] Reviewed chart, met w/patient's sister Nieves Singh [phone] at bedside, patient very lethargic. Introduced self and role. Patient lives with her sister and is active and independent. Sister available to assist patient upon discharge and does not anticipate any needs from this CM team. No barriers identified at this time to patient's safe discharge home w/family to assist; close outpatient f/u recommended. CM team will plan to follow closely in case any DC needs or concerns arise. KRISTINE Castro Discharge Planning/Care Management CM Discharge Assessment Start: 10/12/23 15:08 Freq: Status: Active Protocol: Document 10/12/23 15:08 YOVANNY (Rec: 10/12/23 15:10 YOVANNY [email or web address]) Discharge Planning Assessment Assigned Fruit Inspector KRISTINE Murphy DPOA/Assigned Designee Name sister Moreno Contact Information [phone] Advance Directives? No History Provided By Family Member,Medical Record Prior Living Arrangements House Household Members family Type of transporation used prior to Drives own vehicle admit Independent with ADL's Yes Is patient alert and oriented? Yes Barriers to Discharge No Comment Home w/sister expected Discharge Plan Home Transportation Arrangement Sister Referrals Initiated None needed
--- NOTE | 2023-10-12 15:47 | PC.NURSE ---
Pt returned from PACU at 1430, arousable but lethargic, VSS on 3L NC. C/o nausea but no pain. Medicated with zofran per SEP. Dressing to abdomen c/d/i. Patient and sister reoriented to room and call light. Bed in low position, call light within reach, bed alarm activated.
[2023-10-12] MEDS: SODIUM CHLORIDE 0.9% FLUSH 10 ML IV (19:51)
[2023-10-12] MEDS: IBUPROFEN 600 MG TABLET PO (21:19)
--- NOTE | 2023-10-12 23:44 | PC.NURSE ---
Addendum entered by Gwen Lubin R.N. 10/13/23 00:13: correction to prior charting: patient was medicated with Ibuprofen rather than Tylenol. Original Note: At shift change patient was confused and attempting to crawl out of bed so gotten up in recliner with chair alarm on and 1:1 staff in room. At time of assessment she was drowsy but oriented except to day of month and day of week. She was appropriate, responsive and asking questions. She was on oxygen at 1.5L/min with sat of 96% so titrated down to RA but when asleep dropped to upper 80's so back on oxygen at 1L/min per NC with sat of 94%. HRR with telemetry reading of SR. BP elevated at 168/65 so was medicated with Hydralazine and BP dropped to 148/59 on recheck. She denied nausea. Did complain of dry mouth but had not had anything to drink since return from surgery so was provide water and gingerale and taking sips without nausea. BT absent but no tenderness on mild palpation. Did complain of pain later and was medicated with Tylenol (declined oxycodone) and is currently asleep. Aquacel dressing to abdomen is CDI. Is able to turn herself in bed. Able to get back to bed using walker and 1 assist. Bilateral calf SCD's applied. Fall risk score is high and bed alarm is activated.
[2023-10-13] VITALS (8 sets, daily range): BP systolic 145–181; BP diastolic 55–72; PULSE 92–99; RESP 15–18; TEMP 36.2–37.1; O2SAT 93–96
[2023-10-13] MEDS: SODIUM CHLORIDE 0.9% 1,000 ML 100 ML IV (04:06)
--- NOTE | 2023-10-13 08:27 | PM.PN.1 ---
Subjective Subjective Interval history: Patient had successful laparotomy for SBO yesterday with discovery of volvulus which was reduced. She is advancing diet to clears today. Not passing gas yet. Exam Vital Signs (past 8 hours): - 10/13/23 04:45 10/13/23 04:45 10/13/23 07:31 Temperature 97.9 F Pulse Rate 92 H Respiratory Rate 16 Blood Pressure 145/55 H Pulse Oximetry 96 96 Oxygen Delivery Method Nasal Cannula Oxygen Flow Rate 1 1 Fraction of Inspired Oxygen 24 Fraction of Inspired Oxygen 24 SaO2/FiO2 Ratio 400 Oxygen Delivery Method Nasal Cannula Oxygen Flow Rate 1 Narrative Exam Narrative: NAD. Anxious. Lungs are clear, normal rate and effort. Heart is regular, no murmur gallop or rub. Abdomen is soft, non distended. Midline abd incision present. Extremities are free of edema. Objective Labs 10/11/23 05:31 10/11/23 05:31 [facility] Medical History Herniated nucleus pulposus, L2-3 Plantar warts Fractures History of mumps History of measles History of chickenpox Cataracts, bilateral (~2009) Endometriosis (~1966) Diverticulosis (~2019) Cardiac arrhythmia (~1989) Hypothyroid Hypertension (~1965) Surgical History History of cataract surgery (~2019) Hx of hemorrhoidectomy (~1969) Anesthesia (~1974) History of cholecystectomy (~1999) History of hysterectomy (~1974) Family History Father Hypertension Congestive heart failure Mother Hypertension Congestive heart failure Social History household members: family Smoking Status: Former smoker Tobacco: How many years used: 50 quit status: has quit before alcohol intake: current substance use type: marijuana Assessment & Plan Assessment & Plan narrative: 1. SBO s/p ex lap with reduction of volvulus, present on admission and active. 2. HTN, , present on admission and active. 3. DM 2, , present on admission and active. 4. Hypothyroidism, , present on admission and active. 5. Depression, , present on admission and active. PLAN: -clears, advance as tolerated -ativan PRN for anxiety -analgesia, continue Dispo: Home on 10/13 if tolerating diet and has BM.
[2023-10-13] MEDS: SODIUM CHLORIDE 0.9% FLUSH 10 ML IV ×3 (09:37→22:27)
[2023-10-13] MEDS: IBUPROFEN 600 MG TABLET PO ×2 (12:14→22:31)
--- NOTE | 2023-10-13 12:15 | P.PN_ITS ---
Subjective Subjective Date Patient Seen: 10/13/23 Interval history: No flatus yet. Pain is under control. Exam Vital Signs (past 8 hours): - 10/13/23 04:45 10/13/23 04:45 10/13/23 07:31 Temperature 97.9 F Pulse Rate 92 H Respiratory Rate 16 Blood Pressure 145/55 H Pulse Oximetry 96 96 Oxygen Delivery Method Nasal Cannula Oxygen Flow Rate 1 1 Fraction of Inspired Oxygen 24 10/13/23 08:00 10/13/23 08:30 Temperature 97.1 F L Pulse Rate 94 H Respiratory Rate 18 Blood Pressure 160/58 H Pulse Oximetry 93 93 Oxygen Delivery Method Room Air Oxygen Flow Rate 0 0 Fraction of Inspired Oxygen Fraction of Inspired Oxygen 24 SaO2/FiO2 Ratio 400 Oxygen Delivery Method Room Air Oxygen Flow Rate 0 Narrative Exam Narrative: Dressing is clean dry and intact Dobbins catheter in place with yellow urine Objective Labs 10/11/23 05:31 10/11/23 05:31 [facility] Medical History Herniated nucleus pulposus, L2-3 Plantar warts Fractures History of mumps History of measles History of chickenpox Cataracts, bilateral (~2009) Endometriosis (~1967) Diverticulosis (~2020) Cardiac arrhythmia (~1989) Hypothyroid Hypertension (~1965) Surgical History History of cataract surgery (~2019) Hx of hemorrhoidectomy (~1969) Anesthesia (~1974) History of cholecystectomy (~1999) History of hysterectomy (~1974) Family History Father Hypertension Congestive heart failure Mother Hypertension Congestive heart failure Social History household members: family Smoking Status: Former smoker Tobacco: How many years used: 50 quit status: has quit before alcohol intake: current substance use type: marijuana Assessment & Plan Assessment and plan (1) Small bowel obstruction: Status: Acute Plan Doing well following exploratory laparotomy and detorsion of small bowel. Start Lovenox tonight. DC Dobbins catheter today.
[2023-10-13] MEDS: LORazepam 0.5 MG TABLET PO ×2 (13:08→19:07)
--- NOTE | 2023-10-13 13:36 | PT.IIE ---
Current Diagnoses Hypothyroidism, unspecified (10/11/23) Type 2 diabetes mellitus without complications (10/11/23) Major depressive disorder, recurrent, in full remission (10/11/23) Other chronic pain (10/11/23) Essential (primary) hypertension (10/11/23) Unspecified intestinal obstruction, unspecified as to partial versus complete obstruction (10/11/23) Low back pain (10/11/23) Surgery Performed Operation Date: 10/12/23 12:00 Actual Procedures p Exploratory Laparotomy, Detorsion of Volvulus - Everton Medina MD Surgical History (Last Reviewed 10/12/23 @ 07:12 by Amor Huffman MD) Anesthesia (~1974) History of cataract surgery (~2019) History of cholecystectomy (~1999) History of hysterectomy (~1974) Hx of hemorrhoidectomy (~1969) Medical History (Last Reviewed 10/12/23 @ 07:12 by Amor Huffman MD) Cardiac arrhythmia (~1989) Cataracts, bilateral (~2009) Diverticulosis (~2019) Endometriosis (~1966) Fractures Herniated nucleus pulposus, L2-3 History of chickenpox History of measles History of mumps Hypertension (~1964) Hypothyroid Plantar warts Physical Therapy Inpatient Evaluation/Re-Eval M1 PT/OT-IP Prior Functional Status Start: 10/13/23 13:09 Freq: NEEDED Status: Active Protocol: Document 10/13/23 13:00 MB (Rec: 10/13/23 13:36 MB [id number]) Medical Review Prior Functional Status Medical History Reviewed Yes Diet/Fluid Consistency Regular Communication WNLs Mobility and Gait I Activities of Daily Living and IADL's I, no AD Social History Household Members family Living Arrangements House Number of Floors (Floors) 3 or More Floors Number of Stairs To Enter/Railing? 2 steps and no rail to enter and two flights of steps with left rail ascend in the house Employment Status Retired Additional Social History Comment No ADs per pt and family member report M2 PT-IP Current Condition Start: 10/13/23 13:09 Freq: NEEDED Status: Active Protocol: Document 10/13/23 13:00 MB (Rec: 10/13/23 13:36 MB [id number]) Physical Therapy Current Condition Current Condition Evaluation Date 10/13/23 Treatment Diagnosis Laparatomy M3 PT-IP Subjective Start: 10/13/23 13:09 Freq: NEEDED Status: Active Protocol: Document 10/13/23 13:00 MB (Rec: 10/13/23 13:36 MB [id number]) Subjective Physical Therapy Visit Type Type Initial Evaluation Visit Start Time 13:00 Visit Stop Time 13:25 Number of HAMMER RUNNER Visits 0 Physical Therapy Visit Comments Patient Comments Pt CANTWELL and tired, just had some medication for anxiety, has abdominal pain but does not wish to rate. Therapy Pain Assessment Pain When Pain Assessed At Rest Pain Present Pain Present Pain Reported Location Abdomen Intensity 5 Scale Used Vijay (Faces) M4 PT-IP Mobility and Gait Start: 10/13/23 13:09 Freq: NEEDED Status: Active Protocol: Document 10/13/23 13:00 MB (Rec: 10/13/23 13:36 MB [id number]) PT-Bed Mobility Assessment Rolling Type of Rolling Bilateral Level of Assist Standby Assistance,1 Person Assistance Supine to Sit Supine to Sit Standby Assistance,1 Person Assistance Sit to Supine Sit to Supine Standby Assistance,1 Person Assistance Scooting Scooting to Edge of Bed Standby Assistance PT-Transfer Assessment Sit to and From Stand Sit to and from Stand Contact Guard Assistance,1 Person Assistance,Use of Upper Extremities Equipment Transfer Assistive Device Gait Belt,Front Wheeled Walker Orthotic/Prosthetic Devices or Brace: No Transfers Transfer Destination Toilet Transfer Technique Stepping Transfer Ability Level of Assist Standby Assistance,1 Person Assistance,Use of Upper Extremities Comments Mobility Comments PT cues pt to push up from the bed and not to reach for the walker, she is I with toileting once in BR Gait Assessment Gait Gait Assistance Required: Standby Assistance Distance (Feet) 40 Able to Maintain Weight Bearing Status Yes During Gait Assistive Devices Assistive Device Gait Belt,Front Wheeled Walker Orthotic/Prosthetic Devices or Brace: No Gait Deviations General Gait Pattern Decreased Stride Length, Decreased Feet Clearance, Flexed Trunk Factors Limiting Gait Function Factors Limiting Gait Function Pain,Poor Safety Awareness Stair Climbing Assessment Comments Stair Climbing Comments Pt refuses stair training today PT-Balance Assessment Sitting Balance and Reactions Static Sitting Balance Ability Good Dynamic Sitting Balance Ability Good Standing Balance and Reactions Static Standing Balance Ability Good Dynamic Standing Balance Ability Good Device Used RW M5 PT-IP Objective Assessments Start: 10/13/23 13:09 Freq: NEEDED Status: Active Protocol: Document 10/13/23 13:00 MB (Rec: 10/13/23 13:36 MB [id number]) Orientation Orientation/Cognition Level of Alertness Alert Language Function Ability No Deficits Noted Safety Awareness Decreased Safety Awareness Memory Description No Deficits Noted Gross Range of Motion Upper Extremity ROM Impairments Defer to OT, pt reports right UE discomfort since surgery, ed in positioning Lower Extremity ROM Assessment Within Functional Limits Strength Lower Extremity Strength Assessment Within Functional Limits Sensation Assessment Sensation Gross Sensation WNL M6 PT-IP Treatment Start: 10/13/23 13:09 Freq: NEEDED Status: Active Protocol: Document 10/13/23 13:00 MB (Rec: 10/13/23 13:36 MB [id number]) Physical Therapy Treatment Education Education Provided Precautions,Post-Op Packet M7 PT-IP Assessment and Plan Start: 10/13/23 13:09 Freq: NEEDED Status: Active Protocol: Document 10/13/23 13:00 MB (Rec: 10/13/23 13:36 MB [id number]) PT Summary Assessment and Plan Potential Rehabilitation Potential Good Status of Condition at Evaluation Evolving Summary Impairments Pain,Balance,Bed Mobility, Transfers,Gait,Activity Tolerance Progress Towards Goals Progressing Toward Goals Assessment Summary Pt is a 78 y/o female presenting with CANTWELL, lethargy, abdominal pain post-op laparatomy last date. She requires cues and training for log roll technique and to push up from the bed and not the RW for transfers. Pt refuses stair training today. She does not have a RW for home and does not want one and can try gait without AD next treatment date to see how she dos with that. Ed pt and family member in the benefits of walker at this time. Provided handout for abdominal surgery and log rolling. Goals Bed Mobility Goal Independent Transfer Goal Independent,Front Wheeled Walker Gait Goal Independent,Front Wheel Walker Gait Distance 100 Other Goals Pt will ascend flight of steps with left rail ascend to allow home mobility. Days to Meet Goals 3 Frequency of Treatment Frequency Of Treatment Once a Day Treatment Plan Physical Therapy Treatment Plan Bed Mobility Training,Transfer Training,Gait Training, Therapeutic Exercise,Balance Retraining,Post Op Education, Discharge Planning,Hot or Cold Pack Other Recommendations and Next Treatment Stair training, try gait Focus without cane, review log rolling Precautions Abdominal Surgery Precautions Log Roll,Lifting Restrictions, Gait Belt above Incisional Area Weight Bearing Status Weight Bearing Status Weight Bear as Tolerated Recommendations To Nursing Amount of Assist Needed Standby Assistance,1 Person Assist Discharge Recommendations PT Discharge Recommendations Home with 27/01 Assist Available Transportation Needs at Discharge Private Vehicle
[2023-10-13] MEDS: ENOXAPARIN 40 MG/0.4 ML SYRINGE SUBCUT (18:11)
[2023-10-13] MEDS: HYDRALAZINE 20 MG/ML VIAL 10 MG IV (20:18)
[2023-10-13] MEDS: ONDANSETRON 4 MG/2 ML INJ IV (22:27)
--- NOTE | 2023-10-14 01:43 | PC.NURSE ---
Addendum entered by Gwen Lubin R.N. 10/14/23 02:38: Complained of heart burn so Dr. Keenan contacted and order received for Tums and patient medicated. Original Note: Patient is alert and oriented but highly anxious despite having taken Lorazepam at shift change. Keeps stating I want to go home and needing reinforcement as to why she needs to be in the hospital right now. Breath sounds CTA with RA sat of 93%. HRR with elevated BP of 181/72 requiring medicating with Hydralazine. Initially denied nausea but then doing a lot of coughing and spitting up secretions and then complained of nausea so medicated with Zofran with no recurrence. BT present and is passing flatus. Is voiding without dysuria since catheter removed on previous shift. Is able to turn herself in bed and gets up to bathroom with walker. Did ambulate in christina with SBA + walker. Does not call for assistance when getting out of bed despite reminders to do so; bed alarm is activated. Aquacel dressing to abdomen is CDI. Did complain of pain earlier and was medicated with Ibuprofen (refused oxycodone). Bilateral calf SCD's applied but does not leave them on. Fall risk score is high and bed alarm is activated.
[2023-10-14] MEDS: CALCIUM CARBONATE 500 MG TAB 1000 MG PO ×2 (02:37→11:48)
[2023-10-14 05:27] VITALS: BP 167/71; PULSE 91; RESP 16; TEMP 36.4; O2SAT 94
[2023-10-14 05:36] VITALS: BP 167/71; PULSE 91
[2023-10-14] MEDS: HYDRALAZINE 20 MG/ML VIAL 10 MG IV (05:36)
[2023-10-14] MEDS: SODIUM CHLORIDE 0.9% FLUSH 10 ML IV ×2 (05:37→09:36)
[2023-10-14 07:00] VITALS: O2SAT 94
[2023-10-14 08:42] VITALS: BP 164/65; PULSE 97; RESP 18; TEMP 36; O2SAT 93
--- NOTE | 2023-10-14 09:01 | PT.IPTN ---
Current Diagnoses Hypothyroidism, unspecified (10/11/23) Type 2 diabetes mellitus without complications (10/11/23) Major depressive disorder, recurrent, in full remission (10/11/23) Other chronic pain (10/11/23) Essential (primary) hypertension (10/11/23) Unspecified intestinal obstruction, unspecified as to partial versus complete obstruction (10/11/23) Low back pain (10/11/23) Surgery Performed Operation Date: 10/12/23 12:00 Actual Procedures p Exploratory Laparotomy, Detorsion of Volvulus - Everton Medina MD Physical Therapy Treatment Note M2 PT-IP Current Condition Start: 10/13/23 13:09 Freq: NEEDED Status: Active Protocol: Document 10/13/23 13:00 MB (Rec: 10/13/23 13:36 MB [id number]) Physical Therapy Current Condition Current Condition Evaluation Date 10/13/23 Treatment Diagnosis Laparatomy M3 PT-IP Subjective Start: 10/13/23 13:09 Freq: NEEDED Status: Active Protocol: Document 10/14/23 09:24 TS (Rec: 10/14/23 09:31 TS [id number]) Subjective Physical Therapy Visit Type Type Treatment Note Visit Start Time 09:01 Visit Stop Time 09:24 Number of WOOD SCALER Visits 1 Physical Therapy Visit Comments Patient Comments Pt found resting in chair, would like to get up to use bathroom, pt is agreeable to PT. Therapy Pain Assessment Pain When Pain Assessed At Rest Pain Present Pain Present Pain Reported M4 PT-IP Mobility and Gait Start: 10/13/23 13:09 Freq: NEEDED Status: Active Protocol: Document 10/14/23 09:24 TS (Rec: 10/14/23 09:31 TS [id number]) PT-Bed Mobility Assessment Sit to Supine Sit to Supine Independent PT-Transfer Assessment Sit to and From Stand Sit to and from Stand Standby Assistance Equipment Transfer Assistive Device Gait Belt Comments Mobility Comments STS from chair SBA with BUE support pushging from arms of chair. She ambulated into bathroom ~6' SBA with no AD. After use of restroom pt ambulated ~250'SBA with no AD and some unsteadiness. Pt sways and at tmes veers to L or R. She performed steps x12 with single rail and steps x2 with with no rails on platform step SBA. Pt ambulated back to room, sit to supine into bed Ind. She has some SO, Spo2 95%, HR 110. Pt was left in bed, all needs met. Gait Assessment Gait Gait Assistance Required: Standby Assistance Distance (Feet) 256 Able to Maintain Weight Bearing Status Yes During Gait Assistive Devices Assistive Device None,Gait Belt Orthotic/Prosthetic Devices or Brace: No Gait Deviations General Gait Pattern Decreased Stride Length, Decreased Feet Clearance, Flexed Trunk Factors Limiting Gait Function Factors Limiting Gait Function Decreased Activity Tolerance, Decreased Strength,Poor Balance Comments Gait Comments See mobility comments PT-Balance Assessment Sitting Balance and Reactions Static Sitting Balance Ability Good Dynamic Sitting Balance Ability Good Standing Balance and Reactions Static Standing Balance Ability Good Dynamic Standing Balance Ability Good Device Used RW M5 PT-IP Objective Assessments Start: 10/13/23 13:09 Freq: NEEDED Status: Active Protocol: Document 10/13/23 13:00 MB (Rec: 10/13/23 13:36 MB [id number]) Orientation Orientation/Cognition Level of Alertness Alert Language Function Ability No Deficits Noted Safety Awareness Decreased Safety Awareness Memory Description No Deficits Noted Gross Range of Motion Upper Extremity ROM Impairments Defer to OT, pt reports right UE discomfort since surgery, ed in positioning Lower Extremity ROM Assessment Within Functional Limits Strength Lower Extremity Strength Assessment Within Functional Limits Sensation Assessment Sensation Gross Sensation WNL M6 PT-IP Treatment Start: 10/13/23 13:09 Freq: NEEDED Status: Active Protocol: Document 10/14/23 09:24 TS (Rec: 10/14/23 09:31 TS [id number]) Physical Therapy Treatment Education Education Provided Precautions,Post-Op Packet M7 PT-IP Assessment and Plan Start: 10/13/23 13:09 Freq: NEEDED Status: Active Protocol: Document 10/14/23 09:24 TS (Rec: 10/14/23 09:31 TS [id number]) PT Summary Assessment and Plan Potential Rehabilitation Potential Good Summary Impairments Pain,Balance,Bed Mobility, Transfers,Gait,Activity Tolerance Progress Towards Goals Progressing Toward Goals Assessment Summary Uzma is progressing well with her mobility. She progressed her gait to ~256'SBA with no AD. She is unsteady at times and tends to veer to L or R and requires occasional UE support on robbins/rails. She progressed her steps to ~12 SBA with one rail and x2 steps with no rails SBA. PT is recommending pt return home with assist. Goals Bed Mobility Goal Independent Transfer Goal Independent,Front Wheeled Walker Gait Goal Independent,Front Wheel Walker Gait Distance 100 Other Goals Pt will ascend flight of steps with left rail ascend to allow home mobility. Days to Meet Goals 3 Frequency of Treatment Frequency Of Treatment Once a Day Treatment Plan Physical Therapy Treatment Plan Bed Mobility Training,Transfer Training,Gait Training, Therapeutic Exercise,Balance Retraining,Post Op Education, Discharge Planning,Hot or Cold Pack Other Recommendations and Next Treatment Stair training, gait training, Focus review log rolling Precautions Abdominal Surgery Precautions Log Roll,Lifting Restrictions, Gait Belt above Incisional Area Weight Bearing Status Weight Bearing Status Weight Bear as Tolerated Recommendations To Nursing Amount of Assist Needed Standby Assistance Discharge Recommendations PT Discharge Recommendations Home with Assistance Transportation Needs at Discharge Private Vehicle
[2023-10-14] MEDS: ENOXAPARIN 40 MG/0.4 ML SYRINGE SUBCUT (09:35)
[2023-10-14] MEDS: carvediloL 12.5 MG TABLET 25 MG PO (11:42)
[2023-10-14] MEDS: lisinopriL 5 MG TABLET PO (11:42)
[2023-10-14] MEDS: ASPIRIN EC 81 MG TABLET PO (11:43)
[2023-10-14] MEDS: FLUoxetine 20 MG CAPSULE PO (11:43)
[2023-10-14] MEDS: IBUPROFEN 600 MG TABLET PO (11:45)
[2023-10-14] MEDS: LEVOTHYROXINE 50 MCG TABLET PO (11:47)
--- NOTE | 2023-10-14 13:11 | PC.NURSE ---
Patient is A&OX4, VSS, afebrile on RA. She is initially hypertensive but resumed home anti hypertensives this a.m. She reports pain to abdomen is minimal and tolerating pain level well. Aquacel dressing c/d/i, she reports passing a lot of gas, and denies n/v. She is cleared this a.m. for discharge home and tolerating solid foods. She verbalizes understanding of site care, s/sx of infection as well as need for follow up appointment with MD Medina's office in 2 weeks. She is escorted via w/ch with all of her belongings for discharge home in private vehicle with her sister this afternoon. at approximately 1245 pm.
--- NOTE | 2023-10-15 08:52 | PM.DS.1 ---
History of Present Illness History of Present Illness Chief complaint: abdominal pain and distension Narrative: From night doctor: 78 y/o with PMH of HTN, HLD, hypothyroidism, depression, diverticulosis of colon and cholecystectomy 12 years ago, presented to ED with sudden onset of lower abdominal pain, abdominal distension and nausea. She thought that she has diverticulitis. CT showing small bowel obstruction. Could not tolerate NGT placement. Recent information: Last surgery was about 14 years ago. She denies any known previous bowel obstruction. She has had ongoing severe recurrent abdominal pain since being admitted. She vomited too small volume emesis over the last several hours. She does not feel she can tolerate an NG-tube. She denies any flatus or bowel movements. Discharge Providers Provider Date of admission: 10/11/23 00:56 Discharge Date: 10/14/23 Consults: 10/11/23 09:07 Consult to General Surgery Routine Comment: Consulting Provider: Everton Medina Reason for consultation: SBO Has provider been notified: Yes 10/13/23 10:31 Consult to Physical Therapy Evaluate & Treat Comment: Physician Instructions: Evaluate and Treat Discharge provider: Ronni Simon DO Summary Hospital Course Discharge Diagnosis: 1. SBO s/p ex lap with reduction of volvulus, present on admission and active. 2. HTN, present on admission and active. 3. DM 2, , present on admission and active. 4. Hypothyroidism, , present on admission and active. 5. Depression, , present on admission and active. Hospital Course: Admitted for NV and distention and found to have SBO. Did not improve with conservative measures and gastrografin showed no passage of contrast into colon. Underwent ex-lap which showed volvulus which was corrected. Patient able to tolerate diet afterward and was passing lots of gas. Gen surg will see in 2 weeks as outpatient. She was discharged home after 3 days. Exam Vital Signs (past 8 hours): Fraction of Inspired Oxygen 24 SaO2/FiO2 Ratio 400 Oxygen Delivery Method Room Air Oxygen Flow Rate 0 Narrative Exam Narrative: NAD. Anxious. Lungs are clear, normal rate and effort. Heart is regular, no murmur gallop or rub. Abdomen is soft, non distended. Midline abd incision present. Extremities are free of edema. Objective Labs 10/11/23 05:31 10/11/23 05:31 [facility] Medical History Herniated nucleus pulposus, L2-3 Plantar warts Fractures History of mumps History of measles History of chickenpox Cataracts, bilateral (~2009) Endometriosis (~1966) Diverticulosis (~2019) Cardiac arrhythmia (~1989) Hypothyroid Hypertension (~1964) Surgical History History of cataract surgery (~2019) Hx of hemorrhoidectomy (~1969) Anesthesia (~1974) History of cholecystectomy (~1999) History of hysterectomy (~1974) Family History Father Hypertension Congestive heart failure Mother Hypertension Congestive heart failure Social History household members: family Smoking Status: Former smoker Tobacco: How many years used: 50 quit status: has quit before alcohol intake: current substance use type: marijuana Discharge Plan Discharge Plan Patient Disposition: Home Discharge orders & Medications Prescriptions: Continued lisinopril 5 MG tablet 5 mg PO QDAY Qty: 0 Premarin 0.625 MG tablet 0.625 mg PO QDAY Qty: 0 Patient Comments: no longer taking carvedilol 25 mg tablet 25 mg PO BID Qty: 180 2RF Rx Instructions: must administer with a meal/food atorvastatin [Lipitor] 20 mg Tablet 20 mg PO BEDTIME Qty: 30 0RF levothyroxine [Synthroid] 50 mcg Tablet 50 mcg PO DAILY@0600 Qty: 30 0RF aspirin 81 mg tablet,delayed release (DR/EC) 81 mg PO DAILY Qty: 30 0RF fluoxetine [Prozac] 20 mg capsule 20 mg PO ONCE Qty: 30 0RF Rx Instructions: Hold until Plavix is completed Follow up/Referrals: Everton Medina MD [Physician] - 2 Weeks (please call Dr Spring office to schedule this if you do not hear from them in the next couple of days [phone] ) Visit Report/Discharge Packet Stand Alone Forms: Patient Portal/API, Stroke Signs & Symptoms
[2023-10-15 22:06] VITALS: BMI 31.4
== END 2023-10-14 12:43 | disposition home or self-care (01) | DRG 331 ==
LOC: ED 10-11 00:55 → AC 10-11 00:57
PROVIDERS: Surgery; Admitting Provider Internal Medicine; Emergency Provider Emergency Medicine; Referring Provider Emergency Medicine; Visit Provider Internal Medicine
PROC: 0DN80ZZ Release Small Intestine, Open Approach (ICD-10-PCS; CPT 49000; principal; 2023-10-12 12:00)
DX: K56.50 Intestinal adhesions [bands], unspecified as to partial versus complete obstruction (principal); K56.2 Volvulus; I10 Essential (primary) hypertension; F33.42 Major depressive disorder, recurrent, in full remission; M54.59 Other low back pain; G89.29 Other chronic pain; E03.9 Hypothyroidism, unspecified; Z87.891 Personal history of nicotine dependence
CPT/HCPCS: 36415; 44050; 74018; 74177; 80048; 80053; 81001; 82962; 83605; 83690; 85025; 94760; 96374; 96375; 96376; 97116; 97161; 97530; 99232; 99284; J0136; J0360; J0690; J1100; J1170; J1650; J2060; J2270; J2405; J2543; J2704; J3010; J3490; Q9967

== ENCOUNTER 2023-10-15 17:39 | Inpatient (IN) | payer OTHER, SELFPAY ==
[2023-10-11 01:22] VITALS: BMI 31.4
[2023-10-15] VITALS (11 sets, daily range): BP systolic 167–221; BP diastolic 69–93; PULSE 80–89; RESP 14–20; TEMP 36.4–36.8; O2SAT 93–98; BMI 30.7
[2023-10-15 18:06] LABS: Add Manual Diff / Slide Review NO; Basophils Absolute Auto 0 /uL (0-100); Basophils Percent Auto 0.7 % (0-2); Eosinophils Absolute Auto 400 /uL (0-450); Eosinophils Percent Auto 4.9 % (2-4); Hematocrit 36.6 % (36-46); Hemoglobin 11.9 g/dL (12.0-16.0); Lymphocytes Absolute Auto 900 /uL (1100-4500); Lymphocytes Percent Auto 12.9 % (25-40); Mean Corpuscular HGB Conc 32.5 % (30-36); Mean Corpuscular Hemoglobin 26.5 PG (26-34); Mean Corpuscular Volume 81.7 fL (80-100); Monocytes Absolute Auto 800 /uL (0-900); Monocytes Percent Auto 11.6 % (3-14); Neutrophils Absolute Auto 5100 /uL (1500-7000); Neutrophils Percent Auto 69.9 % (50-75); Platelet Count 211 X10^3/uL (150-400); Red Blood Cell Count 4.48 X10^6/uL (4.0-5.2); Red Cell Distribution Width 14.3 % (11.6-14.8); White Blood Cell Count 7.2 X10^3/uL (4.5-11.0)
[2023-10-15 18:27] LABS: Alanine Aminotransferase 31 IU/L (<35); Albumin 3.6 g/dL (3.5-5.0); Albumin Globulin Ratio 1.1 (1.0-2.8); Alkaline Phosphatase 63 U/L (38-126); Aspartate Aminotransferase 49 IU/L (14-36); BUN Creatinine Ratio 21.1 (6-22); Bilirubin Total 0.5 mg/dL (0.2-1.3); Blood Urea Nitrogen 16 mg/dL (7-17); Carbon Dioxide 33 mmol/L (22-32); Chloride 104 mmol/L (98-107); Estimated Glomerular Filt Rate > 60 mL/min (>60); Globulin 3.3 g/dL (1.7-4.1); Glucose 110 mg/dL (80-110); HEMOLYSIS < 15 (0-50); Lipase 154 U/L (23-300); Potassium 3.4 mmol/L (3.4-5.1); Sodium 140 mmol/L (137-145); Total Protein 6.9 g/dL (6.3-8.2)
--- NOTE | 2023-10-15 18:27 | ED.GENADULT ---
HPI - General Adult General Chief complaint: Abdominal Pain Stated complaint: abd pain Time Seen by Provider: 10/15/23 17:45 Source: patient Mode of arrival: EMS Limitations: no limitations History of Present Illness HPI narrative: Patient is a 78-year-old female who last week was admitted to this facility for a volvulus. Had surgery on Friday. Discharged yesterday. Stated that she was feeling much better until today when she had a fairly sudden onset of abdominal discomfort. States it feels like when she was admitted to the hospital last week. Is having nausea. She did have a small loose stool this morning. She is still passing flatus. No urinary symptoms. She feels like her abdomen is distended. No chest pain or shortness of breath. Related Data Home Medications Medication Instructions Recorded Confirmed conjugated estrogens 0.625 mg 0.625 mg PO QDAY ##0 08/25/11 10/15/23 tablet (Premarin) lisinopril 5 mg tablet 5 mg PO QDAY ##0 08/25/11 10/15/23 loratadine 10 mg tablet (Claritin) 10 mg PO BEDTIME 10/15/23 10/15/23 Previous Rx's Medication Instructions Recorded carvedilol 25 mg tablet 25 mg PO BID #180 tabs 02/20/21 aspirin 81 mg tablet,delayed 81 mg PO DAILY #30 tabs 10/26/22 release atorvastatin 20 mg tablet (Lipitor) 20 mg PO BEDTIME #30 tabs 10/26/22 fluoxetine 20 mg capsule (Prozac) 20 mg PO ONCE #30 caps 10/26/22 levothyroxine 50 mcg tablet 50 mcg PO DAILY@0600 #30 tabs 10/26/22 (Synthroid) Allergies Allergy/AdvReac Type Severity Reaction Status Date / Time codeine Allergy Mild rash, Verified 10/25/22 16:53 vomiting Review of Systems Review of Systems ROS Unobtainable: All systems reviewed & are unremarkable except as noted in HPI and below Patient History Medical History Herniated nucleus pulposus, L2-3 Plantar warts Fractures History of mumps History of measles History of chickenpox Cataracts, bilateral (~2009) Endometriosis (~1967) Diverticulosis (~2019) Cardiac arrhythmia (~1989) Hypothyroid Hypertension (~1965) Surgical History History of cataract surgery (~2019) Hx of hemorrhoidectomy (~1969) Anesthesia (~1974) History of cholecystectomy (~1999) History of hysterectomy (~1974) Family History Father Hypertension Congestive heart failure Mother Hypertension Congestive heart failure Social History household members: family Smoking Status: Former smoker Tobacco: How many years used: 50 quit status: has quit before alcohol intake: current substance use type: marijuana Smoking Status: Former smoker alcohol intake frequency: holidays/special occasions only Substance Use Type: does not use Exam Initial Vital Signs Initial Vital Signs: Vital Signs Temperature 98.3 F 10/15/23 17:49 Pulse Rate 86 10/15/23 17:49 Respiratory Rate 16 10/15/23 17:49 Blood Pressure 195/82 H 10/15/23 17:49 Pulse Oximetry 94 10/15/23 17:49 Oxygen Delivery Method Room Air 10/15/23 17:49 Const General: cooperative and No ill appearing HENMT Head: normal to inspection and normocephalic Resp Effort & Inspection: normal respiratory effort Auscultation: clear to auscultation bilaterally Cardio Rate: regular rate Rhythm: regular rhythm GI Inspection: non-distended Palpation: soft, No firm, No guarding, No rigid and tender Skin Other: Surgical incision midline abdomen is covered with a bandage that is clean and dry Neuro General: patient alert and patient awake Course Orders Ordered: ED Orders 10/15/23 17:53 EKG-12 Lead Stat 10/15/23 17:55 Complete Blood Count AUTO DIFF Stat Comprehensive Metabolic Panel Stat Lactate (Lactic Acid) Stat Lipase Stat 10/15/23 18:28 CT abdomen pelvis w con Stat 10/15/23 21:24 Consult to General Surgery Stat Acetaminophen (Acetaminophen 325 Mg Tablet) 650 mg PO Q6H PRN PRN Reason: Fever/Mild Pain (1-3) Albuterol (Albuterol 2.5 Mg/3 Ml Neb (Adult)) 2.5 mg INH [id number] PRN PRN Reason: Dyspnea Atorvastatin Calcium (Atorvastatin 20 Mg Tablet) 20 mg PO BEDTIME MAXI Last Admin: 04/10/24 23:13 Dose: 20 mg Documented By: JACOB Carvedilol (Carvedilol 12.5 Mg Tablet) 25 mg PO BID [facility] Last Admin: 10/15/23 23:13 Dose: 25 mg Documented By: JACOB Hydralazine HCl (Hydralazine 20 Mg/Ml Vial) 10 mg IV Q6HR PRN PRN Reason: SBP>= 160 or DBP >=110 Hydromorphone HCl (Hydromorphone 0.5 Mg Inj) 0.5 mg IV Q2H PRN PRN Reason: Pain, Severe (7-10) Sodium Chloride (Normal Saline 0.9%) 1,000 mls @ 100 mls/hr IV CONT [facility] Last Admin: 10/15/23 23:14 Dose: 100 mls/hr Documented By: JACOB Levothyroxine Sodium (Levothyroxine 50 Mcg Tablet) 50 mcg PO DAILY@0600 [facility] Lorazepam (Lorazepam 2 Mg/Ml Inj) 0.25 mg IV Q4HR PRN PRN Reason: Anxiety Metoclopramide HCl (Metoclopramide 10 Mg/2 Ml Inj) 10 mg IV Q6HR PRN PRN Reason: Nausea And Vomiting Naloxone HCl (Naloxone 0.4 Mg/Ml Vial) 0.2 mg IV Q2MIN PRN PRN Reason: Opiate Reversal Ondansetron HCl (Ondansetron 4 Mg Odt) 4 mg PO NOW PRN PRN Reason: Nausea And Vomiting Ondansetron HCl (Ondansetron 4 Mg/2 Ml Inj) 4 mg IV NOW PRN PRN Reason: Nausea And Vomiting Last Admin: 10/15/23 20:29 Dose: 4 mg Documented By: KEN Ondansetron HCl (Ondansetron 4 Mg/2 Ml Inj) 4 mg IV Q8HR PRN PRN Reason: Nausea And Vomiting Oxycodone HCl (Oxycodone Ir 5 Mg Tablet) 5 mg PO Q3H PRN PRN Reason: Pain, Moderate (4-6) Oxycodone HCl (Oxycodone Ir 10 Mg Tablet) 10 mg PO Q3H PRN PRN Reason: Pain, Severe (7-10) Promethazine HCl (Promethazine 12.5 Mg Supp) 12.5 mg ID Q6HR PRN PRN Reason: Nausea And Vomiting Discontinued Medications Atorvastatin Calcium (Atorvastatin 20 Mg Tablet) 20 mg PO BEDTIME [facility] Carvedilol (Carvedilol 12.5 Mg Tablet) 25 mg PO BID [facility] Fluoxetine HCl (Fluoxetine 20 Mg Capsule) 20 mg PO NOW ONE Stop: 10/15/23 21:57 Last Admin: 10/15/23 23:05 Dose: Not Given Documented By: JACOB Hydromorphone HCl (Hydromorphone 1 Mg Inj) 1 mg IV NOW ONE Stop: 10/15/23 18:28 Last Admin: 10/15/23 19:02 Dose: 1 mg Documented By: BS Ondansetron HCl (Ondansetron 4 Mg/2 Ml Inj) 4 mg IV NOW ONE Stop: 10/15/23 18:28 Last Admin: 10/15/23 19:02 Dose: 4 mg Documented By: WALLY Vital Signs Vital signs: Vital Signs - 8 hr 10/15/23 17:49 10/15/23 18:03 10/15/23 18:30 Temperature 98.3 F Pulse Rate 86 80 82 Respiratory Rate 16 Blood Pressure 195/82 H Pulse Oximetry 94 94 93 Oxygen Delivery Method Room Air Oxygen Flow Rate 10/15/23 18:30 10/15/23 19:00 10/15/23 19:08 Temperature Pulse Rate 84 Respiratory Rate Blood Pressure 221/93 H 204/83 H Pulse Oximetry 98 Oxygen Delivery Method Oxygen Flow Rate 10/15/23 19:08 10/15/23 19:30 10/15/23 19:31 Temperature Pulse Rate 83 80 Respiratory Rate 14 Blood Pressure 183/77 H Pulse Oximetry 96 94 Oxygen Delivery Method Nasal Cannula Oxygen Flow Rate 1.5 10/15/23 19:31 10/15/23 20:00 10/15/23 20:01 Temperature Pulse Rate 80 80 Respiratory Rate 17 15 Blood Pressure 167/69 H Pulse Oximetry 95 94 Oxygen Delivery Method Room Air Oxygen Flow Rate 10/15/23 20:01 Temperature Pulse Rate 80 Respiratory Rate 15 Blood Pressure Pulse Oximetry 94 Oxygen Delivery Method Oxygen Flow Rate Medical Decision Making Medical Records Medical records reviewed: Yes I reviewed the patient's medical records. Lab Data Lab results reviewed: Yes I reviewed the patient's lab results. 10/15/23 17:55 10/15/23 17:55 Labs: Lab Results 10/15/23 Range/Units 17:55 WBC 7.2 (4.5-11.0) X10^3/uL RBC 4.48 (4.0-5.2) X10^6/uL Hgb 11.9 L (12.0-16.0) g/dL Hct 36.6 (36-46) % MCV 81.7 (80-100) fL MCH 26.5 (26-34) PG MCHC 32.5 (30-36) % RDW 14.3 (11.6-14.8) % Plt Count 211 (150-400) X10^3/uL Neut % (Auto) 69.9 (50-75) % Lymph % (Auto) 12.9 L (25-40) % [place] % (Auto) 11.6 (3-14) % Eos % (Auto) 4.9 H (2-4) % Baso % (Auto) 0.7 (0-2) % Neut # (Auto) 5100 (9455-0311) /uL Lymph # (Auto) 900 L (1859-8230) /uL [place] # (Auto) 800 (0-900) /uL Eos # (Auto) 400 (0-450) /uL Baso # (Auto) 0 (0-100) /uL Sodium 140 (137-145) mmol/L Potassium 3.4 D (3.4-5.1) mmol/L Chloride 104 (98-107) mmol/L Carbon Dioxide 33 H (22-32) mmol/L BUN 16 (7-17) mg/dL Creatinine 0.76 (0.52-1.04) mg/dL Estimated GFR > 60 (>60) mL/min BUN/Creatinine Ratio 21.1 (6-22) Glucose 110 (80-110) mg/dL Lactate 0.9 (0.7-2.1) mmol/L Calcium 9.0 (8.4-10.2) mg/dL Total Bilirubin 0.5 (0.2-1.3) mg/dL AST 49 H (14-36) IU/L ALT 31 (<35) IU/L Alkaline Phosphatase 63 (38-126) U/L Total Protein 6.9 (6.3-8.2) g/dL Albumin 3.6 (3.5-5.0) g/dL Globulin 3.3 (1.7-4.1) g/dL Albumin/Globulin Ratio 1.1 (1.0-2.8) Lipase 154 (23-300) U/L Imaging Data CT scan - abdomen/pelvis: Radiologist's Impression: PROCEDURE: CT ABDOMEN PELVIS W CON INDICATIONS: recent surgery for SBO now with abd pain TECHNIQUE: After the administration of intravenous contrast, axial sections acquired from the lung bases to the pubic symphysis. Coronal and sagittal reformats were performed. For radiation dose reduction, the following was used: automated exposure control, adjustment of mA and/or kV according to patient size. COMPARISON: [facility], CT, CT ABDOMEN PELVIS W CON, 10/10/2023, 23:11. FINDINGS: Image quality: Diagnostic. Lower Chest: No significant findings. ABDOMEN: Liver: No solid mass. Gallbladder: Removed. Biliary ducts: No biliary dilation. Pancreas: No ductal dilation. Spleen: Size is within normal limits. Splenule is present. Adrenal Glands: No adrenal nodules. Kidneys and Ureters: No hydronephrosis. No solid mass. No complex renal cystic lesion which requires follow up. Simple bilateral renal cysts, left greater than right. Stomach and Bowel: There is persistent appearance partial small bowel obstruction. Greatest AP dimension of dilated loop measures 4 cm compared to 3.2 from prior exam. There is been development of mild scattered abdominal and dependent pelvic fluid. Colonic diverticula are present. Transition point appears to be within the right lower quadrant unchanged. Ventral Wall: No significant ventral hernia. Small areas air are present within the subcutaneous fat of the anterior abdominal wall possibly related to areas of injection. Recommend clinical correlation. Abdominal Nodes: No retroperitoneal or mesenteric adenopathy by size criteria. Vessels: Aorta and inferior vena cava are normal in size. PELVIS: Pelvic Organs: Hysterectomy. Bladder: No bladder wall thickening, accounting for underdistention. Pelvic Nodes: No enlarged lymph nodes. Miscellaneous: No inguinal hernias are seen. Bones: No aggressive osseous abnormality. Multilevel degenerative changes. IMPRESSION: Partial small bowel obstruction demonstrating mild interval worsening compared to prior exam. MDM Narrative Medical decision making narrative: CT scan today shows findings consistent with a partial small-bowel obstruction. I discussed the case with Dr. Banks on-call for General surgery who reviewed the CT scan. Plan will be to admit to the medicine service. Discussed the case with hospitaleloy on-call who will admit for further evaluation and treatment. Discussed the need for admission with the patient. Attempted to place an NG tube however the patient was unable to tolerate this. Patient expressed understanding and agreement with the admission. Discharge Plan Departure Patient Disposition: Admitted As Inpatient Clinical Impression: Small bowel obstruction Admit Date/Time: 10/15/23 21:47 Admit Provider: Cornell Julio
[2023-10-15] MEDS: ONDANSETRON 4 MG/2 ML INJ IV ×2 (19:02→20:29)
[2023-10-15] MEDS: HYDROMORPHONE 1 MG INJ IV (19:02)
[2023-10-15 20:07] LABS: Lactate (Lactic Acid) 0.9 mmol/L (0.7-2.1)
--- NOTE | 2023-10-15 22:10 | PC.NURSE ---
Unsuccessful attempt at placing NGtube. Pt unable to tolerate at this time. receiving nurse aware.
[2023-10-15] MEDS: ATORVASTATIN 20 MG TABLET PO (23:13)
[2023-10-15] MEDS: carvediloL 12.5 MG TABLET 25 MG PO (23:13)
[2023-10-15] MEDS: SODIUM CHLORIDE 0.9% 1,000 ML 100 ML IV (23:14)
--- NOTE | 2023-10-15 23:25 | PM.HP.1 ---
History of Present Illness History of Present Illness Chief complaint: abd pain Narrative: 78 years old with history of hypertension, hyperlipidemia, hypothyroidism, depression, diverticulosis, presented to the ER with lower abdominal pain, diarrhea and dry heaves today. The patient was discharged yesterday after she was hospitalized for 3 days for small bowel obstruction. She had exploratory laparotomy for small bowel obstruction showing volvulus which was corrected. Discharge yesterday and today she starts having increased abdominal pain, dry heaves and watery diarrhea with some mucus, not passing much stools. Denies any fever, shortness of breath, chest pain, palpitations or dysuria. Laboratory was unremarkable. CT of the abdomen shows partial small bowel obstruction demonstrating mild interval worsening compared to the prior exam. Surgery consult was initiated over the phone and recommended no indications for acute surgical intervention at this time and to proceed with conservative measures. [facility] Medical History Herniated nucleus pulposus, L2-3 Plantar warts Fractures History of mumps History of measles History of chickenpox Cataracts, bilateral (~2009) Endometriosis (~1966) Diverticulosis (~2019) Cardiac arrhythmia (~1989) Hypothyroid Hypertension (~1965) Surgical History History of cataract surgery (~2019) Hx of hemorrhoidectomy (~1969) Anesthesia (~1974) History of cholecystectomy (~1999) History of hysterectomy (~1974) Family History Father Hypertension Congestive heart failure Mother Hypertension Congestive heart failure Social History household members: family Smoking Status: Former smoker Tobacco: How many years used: 50 quit status: has quit before alcohol intake: current substance use type: marijuana Meds Home Medications and Allergies Home Medications Medication Instructions Recorded Confirmed Type conjugated estrogens 0.625 mg 0.625 mg PO QDAY ##0 08/25/11 10/15/23 History tablet (Premarin) lisinopril 5 mg tablet 5 mg PO QDAY ##0 08/25/11 10/15/23 History carvedilol 25 mg tablet 25 mg PO BID #180 tabs 02/20/21 10/15/23 Rx aspirin 81 mg tablet,delayed 81 mg PO DAILY #30 tabs 10/26/22 10/15/23 Rx release atorvastatin 20 mg tablet (Lipitor) 20 mg PO BEDTIME #30 tabs 10/26/22 10/15/23 Rx fluoxetine 20 mg capsule (Prozac) 20 mg PO ONCE #30 caps 10/26/22 10/15/23 Rx levothyroxine 50 mcg tablet 50 mcg PO DAILY@0600 #30 tabs 10/26/22 10/15/23 Rx (Synthroid) loratadine 10 mg tablet (Claritin) 10 mg PO BEDTIME 10/15/23 10/15/23 History Allergies Allergy/AdvReac Type Severity Reaction Status Date / Time codeine Allergy Mild rash, Verified 10/25/22 16:53 vomiting Review of Systems Review of Systems ROS: Yes All systems reviewed with the patient and are negative except as otherwise documented Constitutional Constitutional: Reports as per HPI and Reports system reviewed and no additional complaints, except as documented Eyes Eyes: Reports as per HPI and Reports system reviewed and no additional complaints, except as documented ENT Ears, Nose, Mouth, and Throat: Yes as per HPI and Yes system reviewed and no additional complaints, except as documented Cardiovascular Cardiovascular: Reports system reviewed and no additional complaints, except as documented Respiratory Respiratory: Reports system reviewed and no additional complaints, except as documented Gastrointestinal Gastrointestinal: Reports system reviewed and no additional complaints, except as documented Genitourinary Genitourinary: Reports system reviewed and no additional complaints, except as documented Musculoskeletal Musculoskeletal: Reports system reviewed and no additional complaints, except as documented, Reports abnormal gait and Reports numbness Neurologic Neurologic: Reports system reviewed and no additional complaints, except as documented, Reports abnormal gait, Reports confusion and Reports numbness Psychiatric Psychiatric: Reports system reviewed and no additional complaints, except as documented and Reports confusion Exam Vital Signs (past 8 hours): - 10/15/23 17:49 10/15/23 18:03 10/15/23 18:30 Temperature 98.3 F Pulse Rate 86 80 82 Respiratory Rate 16 Blood Pressure 195/82 H Pulse Oximetry 94 94 93 Oxygen Delivery Method Room Air Oxygen Flow Rate 10/15/23 18:30 10/15/23 19:00 10/15/23 19:08 Temperature Pulse Rate 84 Respiratory Rate Blood Pressure 221/93 H 204/83 H Pulse Oximetry 98 Oxygen Delivery Method Oxygen Flow Rate 10/15/23 19:08 10/15/23 19:30 10/15/23 19:31 Temperature Pulse Rate 83 80 Respiratory Rate 14 Blood Pressure 183/77 H Pulse Oximetry 96 94 Oxygen Delivery Method Nasal Cannula Oxygen Flow Rate 1.5 10/15/23 19:31 10/15/23 20:00 10/15/23 20:01 Temperature Pulse Rate 80 80 Respiratory Rate 17 15 Blood Pressure 167/69 H Pulse Oximetry 95 94 Oxygen Delivery Method Room Air Oxygen Flow Rate 10/15/23 20:01 10/15/23 22:44 10/15/23 23:13 Temperature 97.5 F L Pulse Rate 80 89 89 Respiratory Rate 15 20 Blood Pressure 178/81 H 178/81 H Pulse Oximetry 94 96 Oxygen Delivery Method Oxygen Flow Rate 0 Oxygen Delivery Method Room Air Oxygen Flow Rate 0 Const General: cooperative, comfortable and well developed Orientation: alert and oriented x3 HENMT Head: normal to inspection, normocephalic and atraumatic Face and sinus: normal facial exam Mouth: oral mucosae normal and moist mucous membranes Throat: posterior oropharynx normal Eyes General: appearance normal, both eyes and all related structures Pupils: PERRL EOM: EOM intact bilaterally Neck Neck: normal visual inspection and full ROM Chest Chest: normal inspection of the chest Resp Effort & Inspection: normal respiratory effort and able to speak in complete sentences Auscultation: clear to auscultation bilaterally Cardio Palpation: normal PMI Rate: regular rate Rhythm: regular rhythm Heart Sounds: S1 normal and S2 normal GI Inspection: normal to inspection Palpation: soft and no hepatosplenomegaly Auscultation: normal bowel sounds Skin General: no rashes or lesions noted Lesions: no lesions Rashes: no rashes Trauma: no lacerations or abrasions Neuro General: patient alert, patient awake, patient oriented x3 and no focal motor deficits Cranial Nerves: CN's II-XI intact bilaterally Cognition: normal cognition Speech: speech normal Gait: normal gait Motor: muscle tone normal throughout Sensory Exam: no sensory deficits noted Extrem General: full ROM and no calf tenderness Psych Appearance: grossly normal Mental Status: mental status grossly normal Speech and Movement: speech and movement normal Objective Labs 10/15/23 17:55 10/15/23 17:55 Labs: Laboratory Results - last 24 hr 10/15/23 17:55 WBC 7.2 RBC 4.48 Hgb 11.9 L Hct 36.6 MCV 81.7 MCH 26.5 MCHC 32.5 RDW 14.3 Plt Count 211 Neut % (Auto) 69.9 Lymph % (Auto) 12.9 L [place] % (Auto) 11.6 Eos % (Auto) 4.9 H Baso % (Auto) 0.7 Neut # (Auto) 5100 Lymph # (Auto) 900 L [place] # (Auto) 800 Eos # (Auto) 400 Baso # (Auto) 0 Sodium 140 Potassium 3.4 D Chloride 104 Carbon Dioxide 33 H BUN 16 Creatinine 0.76 Estimated GFR > 60 BUN/Creatinine Ratio 21.1 Glucose 110 Lactate 0.9 Calcium 9.0 Total Bilirubin 0.5 AST 49 H ALT 31 Alkaline Phosphatase 63 Total Protein 6.9 Albumin 3.6 Globulin 3.3 Albumin/Globulin Ratio 1.1 Lipase 154 Assessment & Plan Assessment & Plan narrative: Partial small bowel obstruction. Status post exploratory laparotomy and volvulus reduction. POD#3 -NPO, -IV fluids, -Pain medications and antiemetics when necessary -NG tube to low intermittent suction if patient starts vomiting actively, -surgical consult for non resolution, -monitor and correct electrolytes, -Hold aspirin, lisinopril and Prozac for possible surgical intervention. Hypertension. Restart carvedilol 25 mg twice daily. Hydralazine IV as needed Hyperlipidemia. Restart Lipitor. Hypothyroidism. Hold levothyroxine for now. Time Spent With Patient Time with patient: 50 to 69 minutes with 50% spent counseling/coordinating care Quality VTE Deep Vein Thrombosis/Pulmonary Embolism Present on Admission: No MIPS - Admit I confirm the patient?s Advance Care Plan is present, Code status is documented, Surrogate decision maker is in patient?s record [If Yes, STOP here]: Yes MIPS - Meds 'Current medications' to include all prescriptions, [id number] products, herbals, cannabis/cannabidiol products, and vitamin/mineral/dietary (nutritional) supplements. I have utilized all available resources to obtain, update, or review the patient?s current medications. [If Yes, STOP here]: Yes
[2023-10-16] VITALS (7 sets, daily range): BP systolic 113–148; BP diastolic 52–63; PULSE 70–83; RESP 16–20; TEMP 36.2–36.6; O2SAT 96–99
[2023-10-16] MEDS: LEVOTHYROXINE 50 MCG TABLET PO (03:49)
[2023-10-16] MEDS: HYDROMORPHONE 0.5 MG INJ IV ×3 (03:52→12:58)
[2023-10-16] MEDS: LORazepam 2 MG/ML INJ 0.25 MG IV (04:34)
--- NOTE | 2023-10-16 08:52 | CM.DANOTE ---
Initial DCP Assessment Visit Note Reviewed EMR and team rounds for status updates. Met with pt at bedside to introduce self and role, pt was found to be awake, appearing uncomfortable, but resting in bed. She is feeling understandably frustrated that she is continuing to have bowel obstruction issues. She lives independently at baseline in her own home with her sister. Payor: [facility] PCP: Sulma Puentes Pt is a 78 year-old woman who was just discharged from the hospital after having a surgical repair of a twisted bowel on 10/12/23, had pain and difficulty after that surgery and remained hospitalized until 10/14. She was discharged home after she was feeling at baseline and no pain, went home and after eating dinner, had sudden onset lower abdominal pain. She presented to the ED last evening via EMS, CT scan in the ED confirmed a partial bowel obstruction. She was made NPO and admitted for further tx/evaluation. Surgery was consulted, the decision right now is to monitor with conservative measures, and gastrographin challenge if it doesn't improve over the course of the day. DCP will continue to follow and assist with any further evolving needs for safe discharge back home. Discharge Planning/Care Management CM Discharge Assessment Start: 10/16/23 08:50 Freq: Status: Active Protocol: Document 10/16/23 08:50 DPL (Rec: 10/16/23 08:52 DPL [id number]) Discharge Planning Assessment Assigned [employer] Attorney KRISTINE Harper Advance Directives? No History Provided By Patient,Medical Record Expected Length of Stay 3 Has Patient been admitted in last 30 Yes days? Comment Pt was just admitted for 10/09-, went home, then later had severe abd. pain and returned to the ED. Prior Living Arrangements House Household Members family Type of transporation used prior to Drives own vehicle admit Independent with ADL's Yes Is patient alert and oriented? Yes Caregiver for Another No Comment Pending PT/OT/Surgery recommendations. Barriers to Discharge No Comment Home w/sister expected Discharge Plan Home Transportation Arrangement Sister Referrals Initiated None needed Whiteboard Updated in Patient Room with Yes name and ext. # of M[employer] Acquis[employer] Attorney Review Status In Process Please Provide Date Initial DC 10/16/23 Assessment Was Performed
[2023-10-16 09:14] LABS: Alanine Aminotransferase 54 IU/L (<35); Albumin 2.8 g/dL (3.5-5.0); Albumin Globulin Ratio 0.9 (1.0-2.8); Alkaline Phosphatase 60 U/L (38-126); Aspartate Aminotransferase 53 IU/L (14-36); BUN Creatinine Ratio 19.2 (6-22); Bilirubin Total 0.4 mg/dL (0.2-1.3); Blood Urea Nitrogen 15 mg/dL (7-17); Calcium 8.3 mg/dL (8.4-10.2); Carbon Dioxide 32 mmol/L (22-32); Chloride 107 mmol/L (98-107); Estimated Glomerular Filt Rate > 60 mL/min (>60); Glucose 95 mg/dL (80-110); HEMOLYSIS < 15 (0-50); Magnesium 1.8 mg/dL (1.6-2.3); Potassium 3.4 mmol/L (3.4-5.1); Sodium 140 mmol/L (137-145); Total Protein 5.8 g/dL (6.3-8.2)
[2023-10-16] MEDS: carvediloL 12.5 MG TABLET 25 MG PO ×2 (09:14→20:42)
[2023-10-16] MEDS: SODIUM CHLORIDE 0.9% 1,000 ML 100 ML IV ×2 (09:17→20:14)
--- NOTE | 2023-10-16 15:18 | PM.PN.1 ---
Subjective Subjective Interval history: Patient still having some LLQ tenderness but passing lots of gas. Had some diarrhea overnight as well. NPO still per gen surg. Exam Vital Signs (past 8 hours): - 10/16/23 08:00 10/16/23 09:14 10/16/23 12:00 Temperature 97.6 F 97.8 F Pulse Rate 72 72 70 Respiratory Rate 19 20 Blood Pressure 147/52 H 147/52 H 140/60 Pulse Oximetry 98 99 Oxygen Flow Rate 0 Oxygen Delivery Method Room Air Oxygen Flow Rate 0 Narrative Exam Narrative: GEN: anxious HEENT: moist mucous membranes, PERRL NECK: trachea midline, no JVD CV: regular rate and rhythm, no murmurs PULM: clear bilaterally ABD: soft, tenderness in LLQ, guarding, mildly distended, no organomegaly EXT: warm and well perfused with no edema NEURO: awake, alert, oriented, no focal deficits Objective Labs 10/15/23 17:55 10/16/23 08:31 Labs: Laboratory Results - last 24 hr 10/15/23 10/16/23 17:55 08:31 WBC 7.2 RBC 4.48 Hgb 11.9 L Hct 36.6 MCV 81.7 MCH 26.5 MCHC 32.5 RDW 14.3 Plt Count 211 Neut % (Auto) 69.9 Lymph % (Auto) 12.9 L [place] % (Auto) 11.6 Eos % (Auto) 4.9 H Baso % (Auto) 0.7 Neut # (Auto) 5100 Lymph # (Auto) 900 L [place] # (Auto) 800 Eos # (Auto) 400 Baso # (Auto) 0 Sodium 140 140 Potassium 3.4 D 3.4 Chloride 104 107 Carbon Dioxide 33 H 32 BUN 16 15 Creatinine 0.76 0.78 Estimated GFR > 60 > 60 BUN/Creatinine Ratio 21.1 19.2 Glucose 110 95 Lactate 0.9 Calcium 9.0 8.3 L Magnesium 1.8 Total Bilirubin 0.5 0.4 AST 49 H 53 H ALT 31 54 H Alkaline Phosphatase 63 60 Total Protein 6.9 5.8 L Albumin 3.6 2.8 L Globulin 3.3 3.0 Albumin/Globulin Ratio 1.1 0.9 L Lipase 154 PFSH Medical History Herniated nucleus pulposus, L2-3 Plantar warts Fractures History of mumps History of measles History of chickenpox Cataracts, bilateral (~2009) Endometriosis (~1966) Diverticulosis (~2019) Cardiac arrhythmia (~1989) Hypothyroid Hypertension (~1965) Surgical History History of cataract surgery (~2019) Hx of hemorrhoidectomy (~1969) Anesthesia (~1974) History of cholecystectomy (~1999) History of hysterectomy (~1974) Family History Father Hypertension Congestive heart failure Mother Hypertension Congestive heart failure Social History household members: family Smoking Status: Former smoker Tobacco: How many years used: 50 quit status: has quit before alcohol intake: current substance use type: marijuana Assessment & Plan Assessment & Plan narrative: Partial small bowel obstruction. -Status post exploratory laparotomy and volvulus reduction. POD#3 -NPO -IV fluids -Pain medications and antiemetics when necessary -NG tube to low intermittent suction if patient starts vomiting actively, not needed thus far -surgical consult for non resolution -monitor and correct electrolytes -Hold aspirin, lisinopril and Prozac for possible surgical intervention. Hypertension. -Restart carvedilol 25 mg twice daily and lisinopril. Hydralazine IV as needed Hyperlipidemia. -Restart Lipitor. Hypothyroidism. -continue levothyroxine. Dispo: 2 days to resolved SBO. Time Spent With Patient Time with patient: 50 to 69 minutes with 50% spent counseling/coordinating care Quality VTE Deep Vein Thrombosis/Pulmonary Embolism Present on Admission: No
[2023-10-16] MEDS: lisinopriL 5 MG TABLET PO (16:46)
[2023-10-16] MEDS: ACETAMINOPHEN 325 MG TABLET 650 MG PO (16:46)
[2023-10-16] MEDS: POTASSIUM CHLORIDE 20 MEQ/15 ML UDC 40 MEQ PO (16:47)
--- NOTE | 2023-10-16 18:59 | PM.CN ---
History of Present Illness Consult details Date Patient Seen: 10/16/23 Time Patient Seen: 18:59 Chief complaint: abd pain Narrative: 78-year-old woman who was discharged from [facility] yesterday following admission for a small-bowel presents with abdominal pain. She underwent an exploratory laparotomy with reduction of small-bowel volvulus October 09. She had return of bowel function was tolerant of a diet prior to discharge. Today she reports abdominal distention and pain following eating. She is passing flatus and having diarrhea. At admission vital signs within normal limits, no leukocytosis CT abdomen pelvis demonstrates a partial bowel obstruction. Meds Home Medications and Allergies Home Medications Medication Instructions Recorded Confirmed Type conjugated estrogens 0.625 mg 0.625 mg PO QDAY ##0 08/25/11 10/15/23 History tablet (Premarin) lisinopril 5 mg tablet 5 mg PO QDAY ##0 08/25/11 10/15/23 History carvedilol 25 mg tablet 25 mg PO BID #180 tabs 02/20/21 10/15/23 Rx aspirin 81 mg tablet,delayed 81 mg PO DAILY #30 tabs 10/26/22 10/15/23 Rx release atorvastatin 20 mg tablet (Lipitor) 20 mg PO BEDTIME #30 tabs 10/26/22 10/15/23 Rx fluoxetine 20 mg capsule (Prozac) 20 mg PO ONCE #30 caps 10/26/22 10/15/23 Rx levothyroxine 50 mcg tablet 50 mcg PO DAILY@0600 #30 tabs 10/26/22 10/15/23 Rx (Synthroid) loratadine 10 mg tablet (Claritin) 10 mg PO BEDTIME 10/15/23 10/15/23 History Allergies Allergy/AdvReac Type Severity Reaction Status Date / Time codeine Allergy Mild rash, Verified 10/25/22 16:53 vomiting Exam Vital Signs (past 8 hours): - 10/16/23 12:00 10/16/23 16:46 Temperature 97.8 F Pulse Rate 70 70 Respiratory Rate 20 Blood Pressure 140/60 140/60 Pulse Oximetry 99 Oxygen Delivery Method Room Air Oxygen Flow Rate 0 Narrative Exam Narrative: General adult woman alert oriented no acute distress Abdomen soft minimal distention. Midline incision clean dry intact. Objective Labs 10/15/23 17:55 10/16/23 08:31 Labs: Laboratory Results - last 24 hr 10/15/23 10/16/23 17:55 08:31 Sodium 140 Potassium 3.4 Chloride 107 Carbon Dioxide 32 BUN 15 Creatinine 0.78 Estimated GFR > 60 BUN/Creatinine Ratio 19.2 Glucose 95 Lactate 0.9 Calcium 8.3 L Magnesium 1.8 Total Bilirubin 0.4 AST 53 H ALT 54 H Alkaline Phosphatase 60 Total Protein 5.8 L Albumin 2.8 L Globulin 3.0 Albumin/Globulin Ratio 0.9 L PFSH Medical History Herniated nucleus pulposus, L2-3 Plantar warts Fractures History of mumps History of measles History of chickenpox Cataracts, bilateral (~2009) Endometriosis (~1966) Diverticulosis (~2019) Cardiac arrhythmia (~1989) Hypothyroid Hypertension (~1964) Surgical History History of cataract surgery (~2019) Hx of hemorrhoidectomy (~1969) Anesthesia (~1974) History of cholecystectomy (~1999) History of hysterectomy (~1974) Family History Father Hypertension Congestive heart failure Mother Hypertension Congestive heart failure Social History household members: family Tobacco & Substance Use Smoking Status: Former smoker Tobacco: How many years used: 50 quit status: has quit before alcohol intake: current substance use type: marijuana Assessment & Plan Assessment and plan (1) Partial small bowel obstruction: Status: Acute Assessment & Plan narrative: 78-year-old woman 5 days status post exploratory laparotomy and reduction of small-bowel volvulus readmitted with a partial small bowel obstruction. CT abdomen pelvis personally personally reviewed partial small-bowel obstruction versus ileus. She feels significantly improved from admission she has active bowel function. She may begin a clear liquid diet and advance as tolerated. We will follow
[2023-10-16] MEDS: ATORVASTATIN 20 MG TABLET PO (20:43)
[2023-10-16] MEDS: LORATADINE 10 MG TABLET PO (20:43)
[2023-10-16] MEDS: OXYCODONE IR 5 MG TABLET PO (20:43)
[2023-10-17 01:00] VITALS: BP 121/55; PULSE 76; RESP 16; TEMP 36; O2SAT 95
[2023-10-17] MEDS: SODIUM CHLORIDE 0.9% 1,000 ML 100 ML IV (04:55)
[2023-10-17] MEDS: LEVOTHYROXINE 50 MCG TABLET PO (05:02)
[2023-10-17 05:35] VITALS: BP 155/56; PULSE 95; RESP 16; TEMP 35.9; O2SAT 95
[2023-10-17 07:00] VITALS: BP 171/55; PULSE 79; RESP 19; TEMP 36.5; O2SAT 95
[2023-10-17 08:16] VITALS: BP 171/55; PULSE 79
[2023-10-17] MEDS: carvediloL 12.5 MG TABLET 25 MG PO (08:16)
[2023-10-17] MEDS: lisinopriL 5 MG TABLET PO (08:16)
[2023-10-17 09:35] LABS: Alanine Aminotransferase 52 IU/L (<35); Albumin 3.2 g/dL (3.5-5.0); Alkaline Phosphatase 73 U/L (38-126); Aspartate Aminotransferase 41 IU/L (14-36); BUN Creatinine Ratio 15.2 (6-22); Bilirubin Total 0.4 mg/dL (0.2-1.3); Blood Urea Nitrogen 10 mg/dL (7-17); Calcium 8.5 mg/dL (8.4-10.2); Carbon Dioxide 29 mmol/L (22-32); Chloride 108 mmol/L (98-107); Estimated Glomerular Filt Rate > 60 mL/min (>60); Globulin 3.2 g/dL (1.7-4.1); Glucose 107 mg/dL (80-110); HEMOLYSIS < 15 (0-50); Magnesium 1.8 mg/dL (1.6-2.3); Potassium 3.8 mmol/L (3.4-5.1); Sodium 140 mmol/L (137-145); Total Protein 6.4 g/dL (6.3-8.2)
--- NOTE | 2023-10-17 10:50 | PM.DS.1 ---
History of Present Illness History of Present Illness Date Patient Seen: 10/17/23 Time Patient Seen: 10:50 Chief complaint: abd pain Narrative: Per admitting provider, 78 years old with history of hypertension, hyperlipidemia, hypothyroidism, depression, diverticulosis, presented to the ER with lower abdominal pain, diarrhea and dry heaves today. The patient was discharged yesterday after she was hospitalized for 3 days for small bowel obstruction. She had exploratory laparotomy for small bowel obstruction showing volvulus which was corrected. Discharge yesterday and today she starts having increased abdominal pain, dry heaves and watery diarrhea with some mucus, not passing much stools. Denies any fever, shortness of breath, chest pain, palpitations or dysuria. Laboratory was unremarkable. CT of the abdomen shows partial small bowel obstruction demonstrating mild interval worsening compared to the prior exam. Surgery consult was initiated over the phone and recommended no indications for acute surgical intervention at this time and to proceed with conservative measures. Discharge Providers Provider Date of admission: 10/15/23 21:47 Discharge Date: 10/17/23 Primary care physician: FRANKIE Retana Consults: 10/15/23 21:24 Consult to General Surgery Stat Comment: Consulting Provider: Orlando Banks Reason for consultation: SBO Has provider been notified: Yes Discharge provider: Russell Houston DO Summary Hospital Course Discharge Diagnosis: Partial small bowel obstruction. Hypertension. Hyperlipidemia. Hypothyroidism. Hospital Course: 78 F with PMH of HTN, HLD, hypothyroidism with recent admission for SBO requiring surgical decompression but no bowel resection admitted with return of symptoms and CT showing possible partial obstruction again. General surgery was reconsulted. Patient did improve, continued to tolerate a diet, and had return of bowel symptoms with conservative management including initial bowel rest and IV fluids. Once tolerating an adequate diet, and continued to have bowel movements, the patient was discharged home. Time Spent with Patient Time spent: Less than 30 minutes Exam Vital Signs (past 8 hours): - 10/17/23 05:35 10/17/23 07:00 10/17/23 08:16 Temperature 96.6 F L 97.7 F Pulse Rate 95 H 79 79 Respiratory Rate 16 19 Blood Pressure 155/56 H 171/55 H 171/55 H Pulse Oximetry 95 95 Oxygen Flow Rate 0 0 10/17/23 08:16 Temperature Pulse Rate 79 Respiratory Rate Blood Pressure 171/55 H Pulse Oximetry Oxygen Flow Rate Oxygen Delivery Method Room Air Oxygen Flow Rate 0 Narrative Exam Narrative: GEN: NAD HEENT: moist mucous membranes, PERRL EXT: warm and well perfused with no edema NEURO: awake, alert, oriented, no focal deficits Objective Labs 10/15/23 17:55 10/17/23 09:04 Labs: Laboratory Results - last 24 hr 10/17/23 09:04 Sodium 140 Potassium 3.8 Chloride 108 H Carbon Dioxide 29 BUN 10 Creatinine 0.66 Estimated GFR > 60 BUN/Creatinine Ratio 15.2 Glucose 107 Calcium 8.5 Magnesium 1.8 Total Bilirubin 0.4 AST 41 H ALT 52 H Alkaline Phosphatase 73 Total Protein 6.4 Albumin 3.2 L Globulin 3.2 Albumin/Globulin Ratio 1.0 PFSH Medical History Herniated nucleus pulposus, L2-3 Plantar warts Fractures History of mumps History of measles History of chickenpox Cataracts, bilateral (~2009) Endometriosis (~1966) Diverticulosis (~2019) Cardiac arrhythmia (~1989) Hypothyroid Hypertension (~1965) Surgical History History of cataract surgery (~2019) Hx of hemorrhoidectomy (~1969) Anesthesia (~1974) History of cholecystectomy (~1999) History of hysterectomy (~1974) Family History Father Hypertension Congestive heart failure Mother Hypertension Congestive heart failure Social History household members: family Smoking Status: Former smoker Tobacco: How many years used: 50 quit status: has quit before alcohol intake: current substance use type: marijuana Discharge Plan Discharge Plan Patient Disposition: Home Provider Discharge Comment: You were admitted to the hospital for possible recurrent bowel obstruction or more likely ileus. Improved with supportive care. Advance diet as tolerated at home. Follow up with PCP for review of hospitalization and surgery. Follow up with general surgery clinic in 1 week. No lifting >10 lbs for 1 month. Discharge orders & Medications Prescriptions: Continued lisinopril 5 MG tablet 5 mg PO QDAY Qty: 0 Premarin 0.625 MG tablet 0.625 mg PO QDAY Qty: 0 Patient Comments: no longer taking carvedilol 25 mg tablet 25 mg PO BID Qty: 180 2RF Rx Instructions: must administer with a meal/food loratadine [Claritin] 10 mg Tablet 10 mg PO BEDTIME atorvastatin [Lipitor] 20 mg Tablet 20 mg PO BEDTIME Qty: 30 0RF levothyroxine [Synthroid] 50 mcg Tablet 50 mcg PO DAILY@0600 Qty: 30 0RF aspirin 81 mg tablet,delayed release (DR/EC) 81 mg PO DAILY Qty: 30 0RF fluoxetine [Prozac] 20 mg capsule 20 mg PO ONCE Qty: 30 0RF Rx Instructions: Hold until Plavix is completed Follow up/Referrals: Orlando Banks MD [Physician] - 1 Week (post op) Debra Puentes ARNP [Primary Care Provider] - Diet/Activity/Treatments Diet: Diet as Tolerated and Full Liquid Activity: as tolerated, no lifting >10 lbs for 1 month. Visit Report/Discharge Packet Stand Alone Forms: Patient Portal/API, Stroke Signs & Symptoms Discharge Data Primary Care Provider: Debra Puentes VTE Deep Vein Thrombosis/Pulmonary Embolism Present on Admission: No
[2023-10-17 11:18] VITALS: BP 131/60; PULSE 77; RESP 21; TEMP 36; O2SAT 96
--- NOTE | 2023-10-17 11:50 | PC.NURSE ---
Patient is A&OX4, BP initially slightly elevated but improved with scheduled BP medications. She is ambulating around her room without difficulty and in the christina. She reports pain moderate at 5/10 to abdomen but declines wanting to take any medications. Aquacel to abdomen midline is C/D/I. She reports passing gas and stools this a.m. Hopsitalist at bedside this a.m. clearing patient for discharge home today. She verbalizes understanding of diet as well as follow up appointments. [employer] escorts patient to private vehicle with her sister for discharge home at 1140. She has all of her personal belongings.
== END 2023-10-17 11:45 | disposition home or self-care (01) | DRG 390 ==
LOC: ED 21:45 → AC 21:48
PROVIDERS: Emergency Medicine; Admitting Provider Internal Medicine; Emergency Provider Emergency Medicine; PCP Nurse Practitioner Primary Care; Referring Provider Emergency Medicine; Visit Provider Internal Medicine
DX: K56.609 Unspecified intestinal obstruction, unspecified as to partial versus complete obstruction (principal); K56.600 Partial intestinal obstruction, unspecified as to cause; Z87.19 Personal history of other diseases of the digestive system; I10 Essential (primary) hypertension; E78.5 Hyperlipidemia, unspecified; E03.9 Hypothyroidism, unspecified; Z90.49 Acquired absence of other specified parts of digestive tract; Z90.710 Acquired absence of both cervix and uterus; Z82.49 Family history of ischemic heart disease and other diseases of the circulatory system; Z87.891 Personal history of nicotine dependence; Z79.82 Long term (current) use of aspirin; Z79.890 Hormone replacement therapy; Z88.5 Allergy status to narcotic agent
CPT/HCPCS: 36415; 74177; 80053; 83605; 83690; 83735; 85025; 96374; 96375; 96376; 99284; J1170; J2060; J2405; Q9967

== ENCOUNTER 2024-07-25 13:11 | Inpatient (IN) | payer OTHER, SELFPAY ==
[2023-10-15 22:26] VITALS: BMI 30.7
[2024-07-25] VITALS (14 sets, daily range): BP systolic 127–170; BP diastolic 55–72; PULSE 58–68; RESP 18–34; TEMP 36.1–37.2; O2SAT 94–98; BMI 29.9
--- NOTE | 2024-07-25 | DI.ECHO.S_ITS ---
[place] [facility] : : [address] [place] : : [id number] : : Phone: [phone] Echocardiogram Report + + :Name: LEANNA HAMM Study Date: 07/26/2024 Height: 65 in : :[facility] ReadingLocation: Weight: 180 lb : : Gender: Female BSA: 1.9 m2 : :: 1945 Age: 79 yrs BP: 130/56 mmHg: :Reason For Study: TIA : :Ordering Physician: KATARINA, : :SHARAN Vaughn Performed By: Sabrina Peralta : :Referring: SHARAN BRAY : + + Interpretation Summary 1) Normal left ventricular thickness, size, wall motion, and systolic function (EF 60-65%). 2) Normal right ventricular size with low normal function. 3) There is very mild aortic stenosis (valve area 2.0cm2, mean gradient 7mmHg). There is mild aortic regurgitation. 4) There is mild luminal irregularity and echogenicity in the abdominal aorta, suggestive of aortic atherosclerotic disease. 5) Compared to the Echo done 10/26/2022, very mild aortic stenosis is present on this study. Procedure: A two-dimensional transthoracic echocardiogram with color flow and Doppler was performed. The study quality was technically adequate. Comparison is made with the echocardiogram of 10/26/2022. The heart rate ranged between 60-72 bpm during the study. Left Ventricle: The left ventricle is normal in size and wall thickness. The ejection fraction is estimated to be 60-65%. Left ventricular systolic function appears normal without focal wall motion abnormalities. Diastolic parameters suggest a relaxation abnormality of the left ventricle, consistent with probable normal filling pressures. Right Ventricle: The right ventricle is normal size. Right ventricular systolic function is at the lower limits of normal. Atria: The left atrial size is normal. Right atrial size is normal. There is no Doppler evidence for an interatrial shunt. Mitral Valve: The mitral valve leaflets appear mildly thickened, but open well. There is mild mitral annular calcification. There is trace mitral regurgitation. Aortic Valve: The aortic valve is mildly calcified. There is mild aortic valve sclerosis. The peak aortic velocity is 1.8 m/sec. The aortic valve mean gradient is 7.0 mmHg. The calculated aortic valve area is 2.0 cm2. There is mild aortic stenosis. There is mild aortic regurgitation. Tricuspid Valve: The tricuspid valve leaflets are thin and pliable. There is trace tricuspid regurgitation. Pulmonary artery pressures cannot be estimated because of the lack of a measurable TR jet velocity. Pulmonic Valve: The pulmonic valve leaflets are thin and pliable; valve motion is normal. There is no pulmonic valvular regurgitation. Great Vessels: The aortic root is normal size. The ascending aorta could not be visualized. There is mild luminal irregularity and echogenicity in the abdominal aorta, suggestive of aortic atherosclerotic disease. The IVC is of normal diameter and collapses greater than 50% with a sniff. This suggests a low right atrial pressure of 3 mm Hg. Pericardium/ Pleura There is no pericardial effusion. There is no pleural effusion. MMode/2D Measurements & Calculations LVIDd: 4.8 cm LVOT diam: 2.2 cm LVIDs: 3.1 cm Ao root diam: 3.2 cm FS: 36.8 % Ao Arch Diam (Prox Trans): 3.2 cm EPSS: 0.34 cm IVSd: 0.85 cm LVPWd: 1.1 cm LV nathan. diameter/BSA (cm/m^2): 2.6 LV sys. diameter/BSA (cm/m^2): 1.6 LA A2 area: 20.7 cm2 RA long axis: 4.4 cm LA A4 area: 15.7 cm2 RA area: 12.0 cm2 LA length (vol): 5.0 cm RA vol: 27.6 ml LA vol: 55.2 ml RA : 14.6 ml/m2 LA vol index: 29.2 ml/m2 IVC diam: 1.4 cm RVD1 (basal): 3.4 cm RVD2 (mid): 3.0 cm TAPSE: 1.6 cm Doppler Measurements & Calculations Ao V2 max: 183.9 cm/sec LVOT Max Tim: 95.2 cm/sec Ao V2 mean: 119.3 cm/sec LV V1 max P.6 mmHg Ao max P.5 mmHg LV V1 VTI: 21.4 cm Ao mean P.0 mmHg FRANCK(I,D): 2.3 cm2 Ao V2 VTI: 36.8 cm FRANCK(V,D): 2.0 cm2 sev ratio: 0.58 FRANCK indexed to BSA (cm^2/m^2): 1.2 MV E max tim: 66.1 cm/sec PA V2 max: 83.1 cm/sec MV A max tim: 65.3 cm/sec PA V2 mean: 61.2 cm/sec MV E/A: 1.0 PA mean P.6 mmHg Med Peak E' Tim: 8.1 cm/sec KARLIE pr(Accel): 15.6 mmHg E/E' med: 8.1 Lat Peak E' Tim: 8.5 cm/sec E/E' lat: 7.8 E/e' average: 8.0 MV dec time: 0.16 sec SV(LVOT): 83.5 ml Reading Physician:08:58 AM
--- NOTE | 2024-07-25 13:27 | EKG_ITS ---
[address] [address] Test Date: 2024-07-25 Pat Name: Uzma Wells Department: Room: Gender: Female [employer] Operator: CALLUM : 1945 Requested By: Order Number: [id number] Reading MD: Jeremy Berkowitz MD Measurements Intervals [place] Rate: 58 P: 57 ME: 144 QRS: -23 QRSD: 84 T: 3 QT: 422 QTc: 414 Interpretive Statements Sinus bradycardia Minimal voltage criteria for LVH, may be normal variant ( R in aVL ) Electronically Signed On 07-26-2024 13:38:47 PST by Jeremy Berkowitz MD
--- NOTE | 2024-07-25 13:27 | DI.RAD.S_ITS ---
PROCEDURE: XR CHEST 1V INDICATIONS: Possible stroke TECHNIQUE: One view of the chest was acquired. COMPARISON: [facility], CR, XR CHEST 1V, 10/25/2022, 17:00. FINDINGS: Surgical changes and devices: None. Lungs and pleura: Lungs are clear. No pleural effusions or pneumothorax. Mediastinum: Mediastinal contours appear normal. Heart size is normal. Bones and chest wall: No suspicious bony lesions. Overlying soft tissues appear unremarkable. IMPRESSION: No acute cardiopulmonary abnormality is seen. Dictated by: Kassandra Ledesma M.D. on 07/25/2024 at 13:18 Approved by: Kassandra Ledesma M.D. on 07/25/2024 at 13:19
--- NOTE | 2024-07-25 13:27 | DI.CT.S_ITS ---
PROCEDURE: CT STROKE INDICATIONS: Positive BE-FAST, Stroke symptoms TECHNIQUE: Noncontrast 4.5 mm thick angled axial sections acquired from the foramen magnum to the vertex, with coronal reformats. For radiation dose reduction, the following was used: automated exposure control, adjustment of mA and/or kV according to patient size. COMPARISON: [facility], CT, CT ANGIO HEAD AND NECK, 07/25/2024, 13:32. [facility], CT, CT STROKE, 10/25/2022, 17:01. FINDINGS: Image quality: Diagnostic. CSF spaces: Basal cisterns are patent. No extra-axial fluid collections. The ventricles are symmetric in size and shape. Brain: No intracranial bleeds or masses. There is cerebral volume loss for age, with resultant ventricular and sulcal prominence. There are periventricular and deep white matter chronic small vessel ischemic changes. There is intracranial internal carotid artery atherosclerosis. Skull and face: Calvarium and visualized facial bones appear intact, without suspicious lesions. Sinuses: Visualized sinuses and mastoids are clear. IMPRESSION: No acute intracranial pathology. Findings discussed with Dr. Gibson at 1:49 p.m. On 07/25/2024. This study fulfills neurological imaging criteria for inclusion or exclusion of acute stroke therapies based on available published neurological guidelines. Dictated by: Dagoberto Cartagena M.D. on 07/25/2024 at 13:48 Approved by: Dagoberto Cartagena M.D. on 07/25/2024 at 13:50
--- NOTE | 2024-07-25 13:30 | ED.NEUROSD ---
HPI - Neuro Symptoms/Deficit General Chief Complaint: Neuro Symptoms/Deficit Stated Complaint: Dizzyness, Poss Mini-Stroke Time Seen by Provider: 07/25/24 13:29 Source: patient and family Mode of arrival: Wheelchair History of Present Illness HPI Narrative: Patient is a 78-year-old female history of TIA, hypertension hyperlipidemia hypothyroid depression presenting today concern for stroke. She lives with her sister who says this morning she got up and was trying to dishes in the morning after breakfast was extremely dizzy and needed to lay down. This was around 10:00 a.m. Around 12:00 p.m. noon she started having left arm weakness difficulty speaking and some facial droop. Sister states that she called 911 EMS arrived but by that time symptoms completely resolved. She did have 1 hypotensive reading with EMS. She was ultimately brought by POV and now symptoms have completely resolved. She does take aspirin daily but not on anticoagulation. On Anticoagulants: No (aspirin) Related Data Home Medications Medication Instructions Recorded Confirmed lisinopril 5 mg tablet 5 mg PO QDAY ##0 08/25/11 07/25/24 Previous Rx's Medication Instructions Recorded carvedilol 25 mg tablet 25 mg PO BID #180 tabs 02/20/21 aspirin 81 mg tablet,delayed 81 mg PO DAILY #30 tabs 10/26/22 release atorvastatin 20 mg tablet (Lipitor) 20 mg PO BEDTIME #30 tabs 10/26/22 fluoxetine 20 mg capsule (Prozac) 20 mg PO ONCE #30 caps 10/26/22 levothyroxine 50 mcg tablet 50 mcg PO DAILY@0600 #30 tabs 10/26/22 (Synthroid) Allergies Allergy/AdvReac Type Severity Reaction Status Date / Time codeine Allergy Mild rash, Verified 10/30/23 13:38 vomiting Review of Systems Hematologic/Lymphatic On Anticoagulants: No (aspirin) Patient History Medical History Herniated nucleus pulposus, L2-3 Plantar warts Fractures History of mumps History of measles History of chickenpox Cataracts, bilateral (~2009) Endometriosis (~1966) Diverticulosis (~2019) Cardiac arrhythmia (~1989) Hypothyroid Hypertension (~1965) Surgical History History of cataract surgery (~2019) Hx of hemorrhoidectomy (~1969) Anesthesia (~1974) History of cholecystectomy (~1999) History of hysterectomy (~1974) Family History Father Hypertension Congestive heart failure Mother Hypertension Congestive heart failure Social History household members: family Smoking Status: Former smoker Tobacco: How many years used: 50 quit status: has quit before alcohol intake: current substance use type: marijuana Smoking Status: Former smoker alcohol intake frequency: holidays/special occasions only Exam Initial Vital Signs Initial Vital Signs: Vital Signs Pulse Rate 60 07/25/24 13:17 Pulse Oximetry 96 07/25/24 13:17 Scores NIH Stroke Scale Level of Conciousness: Alert, keenly responsive Ask month/age: Answers both questions correctly. Open/close eyes, close hand: Performs both tasks correctly Best gaze horizontal: Normal Visual torres: No visual loss Facial palsy: Normal symetrical movement Left arm drift: No drift for full 10 sec Right arm drift: No drift for full 10 sec Left leg drift: No drift for full 5 sec Right leg drift: No drift for full 5 sec Limb ataxia: Absent Sensory on face/arms/legs: Normal, no sensory loss Best language: No aphasia, normal Dysarthria: Normal Extinction or inattention: No abnormality Total NIH Stroke scale score: 0 Course Orders Ordered: ED Orders 07/25/24 13:24 Complete Blood Count AUTO DIFF Stat Comprehensive Metabolic Panel Stat Magnesium Stat PTT Partial Thromboplastin [place] Stat Prothrombin Time INR Stat Troponin & CK Cardiac Panel Stat 07/25/24 13:27 CT Stroke Stat XR chest 1V Stat EKG-12 Lead Stat 07/25/24 13:29 CT angio head and neck Stat 07/25/24 14:40 Urinalysis and Microscopic Stat Urine Drug Screen, Rapid Stat 07/25/24 16:19 Education, smoking cessation ONGOING Aspirin (Aspirin Ec 81 Mg Tablet) 81 mg PO DAILY MAXI Atorvastatin Calcium (Atorvastatin 20 Mg Tablet) 80 mg PO DAILY MAXI Carvedilol (Carvedilol 12.5 Mg Tablet) 25 mg PO BID MAXI Clopidogrel Bisulfate (Clopidogrel 75 Mg Tablet) 75 mg PO DAILY MAXI Fluoxetine HCl (Fluoxetine 20 Mg Capsule) 20 mg PO DAILY MAXI Levothyroxine Sodium (Levothyroxine 50 Mcg Tablet) 50 mcg PO DAILY@0600 [facility] Lisinopril (Lisinopril 5 Mg Tablet) 5 mg PO DAILY [facility] Naloxone HCl (Naloxone 0.4 Mg/Ml Vial) 0.2 mg IV Q2MIN PRN PRN Reason: Opiate Reversal Ondansetron HCl (Ondansetron 4 Mg/2 Ml Inj) 4 mg IV NOW PRN PRN Reason: Nausea And Vomiting Ondansetron HCl (Ondansetron 4 Mg Odt) 4 mg SL NOW PRN PRN Reason: Nausea And Vomiting Discontinued Medications Aspirin (Aspirin Ec 325 Mg Tablet) 325 mg PO NOW ONE Stop: 07/25/24 14:22 Last Admin: 07/25/24 14:29 Dose: 325 mg Documented By: RED Aspirin (Aspirin Ec 81 Mg Tablet) 81 mg PO DAILY [facility] Atorvastatin Calcium (Atorvastatin 20 Mg Tablet) 80 mg PO DAILY [facility] Clopidogrel Bisulfate (Clopidogrel 75 Mg Tablet) 75 mg PO DAILY [facility] Levothyroxine Sodium (Levothyroxine 50 Mcg Tablet) 50 mcg PO DAILY@0600 [facility] Naloxone HCl (Naloxone 0.4 Mg/Ml Vial) 0.2 mg IV Q2MIN PRN PRN Reason: Opiate Reversal Non-Formulary Medication (Carvedilol) 25 mg PO BID [facility] Vital Signs Vital signs: Vital Signs - 8 hr 07/25/24 13:17 07/25/24 13:18 07/25/24 13:18 Temperature Pulse Rate 60 60 Respiratory Rate Blood Pressure 135/63 Pulse Oximetry 96 95 Oxygen Delivery Method 07/25/24 13:21 07/25/24 13:30 07/25/24 14:00 Temperature 98.9 F Pulse Rate 59 L 60 58 L Respiratory Rate 18 30 H 30 H Blood Pressure 135/63 Pulse Oximetry 95 96 95 Oxygen Delivery Method Room Air 07/25/24 14:09 07/25/24 14:09 07/25/24 14:30 Temperature Pulse Rate 60 59 L Respiratory Rate 26 H 26 H Blood Pressure 127/58 L Pulse Oximetry 97 96 Oxygen Delivery Method 07/25/24 14:41 07/25/24 14:41 07/25/24 15:00 Temperature Pulse Rate 61 63 Respiratory Rate 27 H 31 H Blood Pressure 170/72 H Pulse Oximetry 97 95 Oxygen Delivery Method 07/25/24 15:30 07/25/24 16:00 Temperature Pulse Rate 63 61 Respiratory Rate 34 H 28 H Blood Pressure Pulse Oximetry 95 96 Oxygen Delivery Method MDM - Neuro Symptoms/Deficit Lab Data 07/25/24 13:24 07/25/24 13:24 Labs: Lab Results 07/25/24 07/25/24 07/25/24 Range/Units 13:24 14:40 14:40 WBC 5.8 (4.5-11.0) X10^3/uL RBC 4.82 (4.0-5.2) X10^6/uL Hgb 12.8 (12.0-16.0) g/dL Hct 39.6 (36-46) % MCV 82.1 (80-100) fL MCH 26.5 (26-34) PG MCHC 32.3 (30-36) % RDW 15.2 H (11.6-14.8) % Plt Count 252 (150-400) X10^3/uL Neut % (Auto) 54.8 (50-75) % Lymph % (Auto) 28.1 (25-40) % [place] % (Auto) 10.3 (3-14) % Eos % (Auto) 6.0 H (2-4) % Baso % (Auto) 0.8 (0-2) % Neut # (Auto) 3200 (2956-3384) /uL Lymph # (Auto) 1600 (2925-1316) /uL [place] # (Auto) 600 (0-900) /uL Eos # (Auto) 300 (0-450) /uL Baso # (Auto) 0 (0-100) /uL PT 11.7 (9.4-12.5) SECONDS INR 1.0 (0.9-1.3) APTT 35 (25.1-36.5) SECONDS Sodium 140 (137-145) mmol/L Potassium 4.4 (3.4-5.1) mmol/L Chloride 103 (98-107) mmol/L Carbon Dioxide 32 (22-32) mmol/L BUN 22 H (7-17) mg/dL Creatinine 1.15 H (0.52-1.04) mg/dL Estimated GFR 49 L (>60) mL/min BUN/Creatinine Ratio 19.1 (6-22) Glucose 86 (80-110) mg/dL Calcium 9.4 (8.4-10.2) mg/dL Magnesium 1.9 (1.6-2.3) mg/dL Total Bilirubin 0.3 (0.2-1.3) mg/dL AST 30 (14-36) IU/L ALT 23 (<35) IU/L Alkaline Phosphatase 58 (38-126) U/L Total Creatine Kinase 62 (30-135) U/L Troponin I < 0.012 (0.01-0.034) ng/mL Total Protein 7.6 (6.3-8.2) g/dL Albumin 4.2 (3.5-5.0) g/dL Globulin 3.4 (1.7-4.1) g/dL Albumin/Globulin Ratio 1.2 (1.0-2.8) Urine Color Yellow Urine Appearance Clear Urine pH 5.5 Normal (4.5-8.0) Ur Specific [place] 1.015 (1.000-1.035) Urine Protein Negative (Negative) Urine Glucose (UA) Negative (Negative) g/dL Urine Ketones Trace H (NEGATIVE) Urine Occult Blood Negative (Negative) Urine Nitrate Negative (Negative) Urine Bilirubin Negative (NEGATIVE) Urine Urobilinogen 0.2 (0.2) E.U./dL Ur Leukocyte Esterase Negative (NEGATIVE) Urine RBC None seen (0-5/HPF) Urine WBC None seen (0-5/HPF) Ur Squamous Epith Cells None seen (0-5/HPF) Urine Bacteria None seen (None) Hyaline Casts 1-5/lpf (None) Ur Culture Indicated? Cult not indicated Vol Urine Centrifuged 10ml (spun) U Opiates 300ng/mL cut Negative (Negative) Ur Oxycodone Screen Negative (Negative) Urine Methadone Screen Negative (Negative) Ur Barbiturates Screen Negative (Negative) U Tricyclic Antidepress Negative (Negative) Ur Phencyclidine Scrn Negative (Negative) Ur Amphetamines Screen Negative (Negative) U Methamphetamines Scrn Negative (Negative) Ur MDMA Scrn (Ecstasy) Negative (Negative) U Benzodiazepines Scrn Negative (Negative) Urine Cocaine Screen Negative (Negative) U Marijuana (THC) Screen Negative (Negative) Urine Specific [place] Normal (Normal) Ur Creatinine Normal (Normal) Point of Care Testing Glucose POC 97 Imaging Data CTA - brain/neck: Radiologist's Impression: PROCEDURE: CT ANGIO HEAD AND NECK INDICATIONS: left arm weakness TECHNIQUE: After the administration of intravenous contrast, 1 mm thick sections acquired from the aortic arch through the [place] of [place]. 3-dimensional [id number] (MIP) and/or volume rendering reformats were acquired of the central intracranial vasculature and neck separately. For radiation dose reduction, the following was used: automated exposure control, adjustment of mA and/or kV according to patient size. COMPARISON: [facility], CT, CT ANGIO HEAD AND NECK, 10/25/2022, 17:01. FINDINGS: Image quality: Suboptimal due to motion artifact and contrast timing. BRAIN: HEAD CT ANGIOGRAPHY: Anterior circulation: There is occlusion an M3 segment of the right MCA territory in the right frontal lobe (series 4, image 84). Posterior circulation: Visualized portions of the vertebral arteries demonstrate normal caliber, and join to form a normal appearing basilar artery. Flow within the posterior cerebral arteries is normal and symmetric. No aneurysms are seen. NECK CT ANGIOGRAPHY: Carotid system: The great vessels demonstrate a conventional anatomy as they arise from the aortic arch. The origins of the common carotid arteries appear patent. The common carotid arteries demonstrate normal caliber and courses. Greater than 75 percent narrowing of the right internal carotid artery. Less than 50 percent narrowing of the proximal left internal carotid artery. Posterior circulation: The origins of the vertebral arteries both appear widely patent. The more superior extracranial portions of both vertebral arteries also demonstrate normal courses and calibers. They join to form a normal appearing basilar artery. Soft tissues: Visualized neck soft tissues demonstrate no suspicious abnormalities. Bones: No suspicious bony lesions. Visualized cervical spine appears normally aligned. 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 High-grade narrowing of the proximal right internal carotid artery and moderate narrowing of the proximal left internal carotid artery. Contrast timing is not optimal on this examination. Consider evaluation with carotid ultrasound for confirmation. Findings discussed with Dr. Gibson at 149 p.m. On 07/24/2024. Any quantitative measurements of stenosis were performed using NASCET criteria. Dictated by: Dagoberto Cartagena M.D. on 07/25/2024 at 13:50 CT scan - head: Radiologist's Impression: PROCEDURE: CT STROKE INDICATIONS: Positive BE-FAST, Stroke symptoms TECHNIQUE: Noncontrast 4.5 mm thick angled axial sections acquired from the foramen magnum to the vertex, with coronal reformats. For radiation dose reduction, the following was used: automated exposure control, adjustment of mA and/or kV according to patient size. COMPARISON: [facility], CT, CT ANGIO HEAD AND NECK, 07/25/2024, 13:32. [facility], CT, CT STROKE, 10/25/2022, 17:01. FINDINGS: Image quality: Diagnostic. CSF spaces: Basal cisterns are patent. No extra-axial fluid collections. The ventricles are symmetric in size and shape. Brain: No intracranial bleeds or masses. There is cerebral volume loss for age, with resultant ventricular and sulcal prominence. There are periventricular and deep white matter chronic small vessel ischemic changes. There is intracranial internal carotid artery atherosclerosis. Skull and face: Calvarium and visualized facial bones appear intact, without suspicious lesions. Sinuses: Visualized sinuses and mastoids are clear. IMPRESSION: No acute intracranial pathology. Findings discussed with Dr. Gibson at 1:49 p.m. On 07/25/2024. This study fulfills neurological imaging criteria for inclusion or exclusion of acute stroke therapies based on available published neurological guidelines. Dictated by: Dagoberto Cartagena M.D. on 07/25/2024 at 13:48 ECG Data Attestation: I personally reviewed and interpreted this ECG as follows: Prior ECG tracings: available for review Interpretation: Sinus rhythm rate 58 MO interval 144 QRS [address] changes rhythm no ischemia T-wave inversion noted in lead 3 similar to prior MDM Narrative Medical decision making narrative: MDM CC: Left-sided weakness Complicating co-morbidities: Prior TIA Data collected from: Sister Medical records reviewed: Previous TIA in 2022 Differential considered: CVA TIA intracranial hemorrhage Exam documented above, pertinent findings include: NIH stroke scale 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 Pertinent findings: WBC 5.8 hemoglobin 12.8 hematocrit 39.6 platelets 252 Sodium 140 potassium 4.4 chloride 103 carbon dioxide 32 BUN 22 creatinine 1.1 previously 0.6 Troponin negative Independently reviewed EKG as above Sinus Imaging studies independently reviewed: Consultations: 1414 DR. Flores, stroke fellow updated on patient's symptoms test results has reviewed imaging concern for M3 occlusion. Reports not a TNK candidate if she woke up dizzy likely last known well is last night. Also if she now has an NIH of 0 symptoms have completely resolved this is most likely a stenosis rather than thrombus. At this time recommends dual antiplatelet therapy for 21 days and atorvastatin 80. Dr. Andre updated on patient's symptoms test results and accepts patient Treatments: Aspirin Re-evaluations: Patient remains stable with a NIH of 0 Discussion: Patient is 78-year-old female initially presented as a code stroke. She did have some significant left arm weakness and slurring of speech which lasted 5-10 minutes and quickly resolved. She woke up with dizziness this morning which is likely start of her symptoms and last known well ultimately decided that it was last evening. She has no longer TNK candidate. Also symptoms quickly resolved. Stroke was consulted at this time no large vessel occlusion or thrombectomy indicated no need for TNK. Discharge Plan Departure Patient Disposition: Admitted as Observation Clinical Impression: Brain TIA Admit Date/Time: 07/25/24 17:06 Admit Provider: Jose M Andre
--- NOTE | 2024-07-25 13:36 | PC.NURSE ---
Pt states that she started having slurred speech, left sided-weakness and vision loss in her right arm at approximately 1200 today. Sister called EMS and by the time that EMS, pt's sx resolved. According to pt, EMS recommended that pt be seen in ED for further evaluation and that it was ok for pt to come POV. Pt a&ox4. [place] at baseline. Pt moves all extremities and no slurry speech at the time of triage. Pt has hx of TIA in October 2023.
[2024-07-25 13:37] LABS: Add Manual Diff / Slide Review NO; Basophils Absolute Auto 0 /uL (0-100); Basophils Percent Auto 0.8 % (0-2); Eosinophils Absolute Auto 300 /uL (0-450); Hematocrit 39.6 % (36-46); Hemoglobin 12.8 g/dL (12.0-16.0); Lymphocytes Absolute Auto 1600 /uL (1100-4500); Lymphocytes Percent Auto 28.1 % (25-40); Mean Corpuscular HGB Conc 32.3 % (30-36); Mean Corpuscular Hemoglobin 26.5 PG (26-34); Mean Corpuscular Volume 82.1 fL (80-100); Monocytes Absolute Auto 600 /uL (0-900); Monocytes Percent Auto 10.3 % (3-14); Neutrophils Absolute Auto 3200 /uL (1500-7000); Neutrophils Percent Auto 54.8 % (50-75); Platelet Count 252 X10^3/uL (150-400); Red Blood Cell Count 4.82 X10^6/uL (4.0-5.2); Red Cell Distribution Width 15.2 % (11.6-14.8); White Blood Cell Count 5.8 X10^3/uL (4.5-11.0)
[2024-07-25 13:45] LABS: Prothrombin Time 11.7 SECONDS (9.4-12.5)
[2024-07-25 13:47] LABS: PTT Partial Thromboplastin Tim 35 SECONDS (25.1-36.5)
[2024-07-25 13:49] LABS: Alanine Aminotransferase 23 IU/L (<35); Albumin 4.2 g/dL (3.5-5.0); Albumin Globulin Ratio 1.2 (1.0-2.8); Alkaline Phosphatase 58 U/L (38-126); Aspartate Aminotransferase 30 IU/L (14-36); BUN Creatinine Ratio 19.1 (6-22); Bilirubin Total 0.3 mg/dL (0.2-1.3); Blood Urea Nitrogen 22 mg/dL (7-17); Calcium 9.4 mg/dL (8.4-10.2); Carbon Dioxide 32 mmol/L (22-32); Chloride 103 mmol/L (98-107); Creatine Kinase 62 U/L (30-135); Estimated Glomerular Filt Rate 49 mL/min (>60); Globulin 3.4 g/dL (1.7-4.1); Glucose 86 mg/dL (80-110); HEMOLYSIS < 15 (0-50); Magnesium 1.9 mg/dL (1.6-2.3); Potassium 4.4 mmol/L (3.4-5.1); Sodium 140 mmol/L (137-145); Total Protein 7.6 g/dL (6.3-8.2)
[2024-07-25 14:01] LABS: Troponin I < 0.012 ng/mL (0.01-0.034)
[2024-07-25] MEDS: ASPIRIN EC 325 MG TABLET PO (14:29)
--- NOTE | 2024-07-25 14:31 | PC.NURSE ---
After speaking to pt more, it has become apparent's that pt's actual last known well was last night at approximately 2000. Pt woke up this morning and states that she was feeling very dizzy with vision loss in her right eye and at 1000 sister reports that pt started slurring her speech. Pt a&Ox4.
--- NOTE | 2024-07-25 14:47 | PC.NURSE ---
Pt ambulated to bathroom with steady gait and stand-by assist. Pt denies any dizziness or weakness. A&Ox4.
[2024-07-25 14:51] LABS: Appearance Urine UA CLEAR; Bilirubin Urine UA NEGATIVE (NEGATIVE); Color Urine UA YELLOW; Glucose Urine UA NEGATIVE (Negative); Ketones Urine UA TRACE (NEGATIVE); Leukocyte Esterase Urine UA NEGATIVE (NEGATIVE); Nitrite Urine UA NEGATIVE (Negative); Occult Blood Urine UA NEGATIVE (Negative); Protein Urine UA NEGATIVE (Negative); Specific Gravity Urine UA 1.015 (1.000-1.035); Urobilinogen Urine UA 0.2 E.U./dL (0.2)
[2024-07-25 14:53] LABS: pH Urine UA 5.5 (4.5-8.0)
[2024-07-25 14:54] LABS: Ur Creatinine Normal (Normal); Ur Specific Gravity Normal (Normal); Urine pH Normal (Normal)
[2024-07-25 14:55] LABS: UR Morphine/Opiate cutoff 300 Negative (Negative); Urine Amphetamines Negative (Negative); Urine Barbiturates Negative (Negative); Urine Benzodiazepines Negative (Negative); Urine Cocaine Negative (Negative); Urine MDMA Negative (Negative); Urine Methadone Negative (Negative); Urine Methamphetamines Negative (Negative); Urine Oxycodone Negative (Negative); Urine Phencyclidine Negative (Negative); Urine Tetrahydrocannabinol Negative (Negative); Urine Tricyclic Antidepressant Negative (Negative)
[2024-07-25 15:06] LABS: Bacteria Urine None Seen; Hyaline Casts Urine 1-5/LPF; RBC Urine None Seen (0-5/HPF); Squamous Epithelial Cell Urine None Seen (0-5/HPF); Urine Volume 10mL (spun); WBC Urine None Seen (0-5/HPF)
[2024-07-25 15:07] LABS: Culture Indicated Urine Cult Not Indicated
--- NOTE | 2024-07-25 16:17 | PM.HP.1 ---
History of Present Illness History of Present Illness Date Patient Seen: 07/25/24 Time Patient Seen: 16:24 Chief complaint: Dizzyness, Poss Mini-Stroke Narrative: This is a 78-year-old female with a history of prior TIA, hypertension, hyperlipidemia, hypothyroidism and depression who presents with a short episode of left arm weakness and dysarthria. She lives with her sister who says this morning she got up and was trying to clean the dishes in the morning after breakfast but was vertiginous and needed to lay down. This was around 10:00 a.m. Around 12:00 p.m. noon she started having left arm weakness difficulty speaking and some facial droop. He sister says that by the time 911 EMS arrived her symptoms had completely resolved. She did have 1 hypotensive reading with EMS. She was brought in by private car and now symptoms have completely resolved. She does take aspirin and atorvastatin daily. The brain CTA suggests right MCA occlusion, right internal carotid artery high-grade narrowing and moderate narrowing of the proximal left internal carotid artery. The ED physician spoke with the stroke service delivery consultant who recommended dual antiplatelet therapy and indicated that she would not be a candidate for any intervention due to resolution of her symptoms. She will also need ultrasound to clarify her carotid situation. An echocardiogram will be done and high-dose statin will be started. [facility] Medical History Herniated nucleus pulposus, L2-3 Plantar warts Fractures History of mumps History of measles History of chickenpox Cataracts, bilateral (~2009) Endometriosis (~1966) Diverticulosis (~2019) Cardiac arrhythmia (~1989) Hypothyroid Hypertension (~1965) Surgical History History of cataract surgery (~2019) Hx of hemorrhoidectomy (~1969) Anesthesia (~1974) History of cholecystectomy (~1999) History of hysterectomy (~1974) Family History Father Hypertension Congestive heart failure Mother Hypertension Congestive heart failure Social History household members: family Smoking Status: Former smoker Tobacco: How many years used: 50 quit status: has quit before alcohol intake: current substance use type: marijuana Meds Home Medications and Allergies Home Medications Medication Instructions Recorded Confirmed Type conjugated estrogens 0.625 mg 0.625 mg PO QDAY ##0 08/25/11 10/30/23 History tablet (Premarin) lisinopril 5 mg tablet 5 mg PO QDAY ##0 08/25/11 10/30/23 History carvedilol 25 mg tablet 25 mg PO BID #180 tabs 02/20/21 10/30/23 Rx aspirin 81 mg tablet,delayed 81 mg PO DAILY #30 tabs 10/26/22 10/30/23 Rx release atorvastatin 20 mg tablet (Lipitor) 20 mg PO BEDTIME #30 tabs 10/26/22 10/30/23 Rx fluoxetine 20 mg capsule (Prozac) 20 mg PO ONCE #30 caps 10/26/22 10/30/23 Rx levothyroxine 50 mcg tablet 50 mcg PO DAILY@0600 #30 tabs 10/26/22 10/30/23 Rx (Synthroid) loratadine 10 mg tablet (Claritin) 10 mg PO BEDTIME 10/15/23 10/30/23 History Allergies Allergy/AdvReac Type Severity Reaction Status Date / Time codeine Allergy Mild rash, Verified 10/30/23 13:38 vomiting Review of Systems Review of Systems Narrative: Positive for vertigo, dysarthria and left-sided weakness along with hearing loss. Negative for fevers, chills, sweats, nausea, vomiting, diarrhea, rashes, abdominal pain, chest pain, coughing, joint pain, sore throat, headache, new allergies. Exam Vital Signs (past 8 hours): - 07/25/24 13:17 07/25/24 13:18 07/25/24 13:18 Temperature Pulse Rate 60 60 Respiratory Rate Blood Pressure 135/63 Pulse Oximetry 96 95 Oxygen Delivery Method 07/25/24 13:21 07/25/24 13:30 07/25/24 14:00 Temperature 98.9 F Pulse Rate 59 L 60 58 L Respiratory Rate 18 30 H 30 H Blood Pressure 135/63 Pulse Oximetry 95 96 95 Oxygen Delivery Method Room Air 07/25/24 14:09 07/25/24 14:09 07/25/24 14:30 Temperature Pulse Rate 60 59 L Respiratory Rate 26 H 26 H Blood Pressure 127/58 L Pulse Oximetry 97 96 Oxygen Delivery Method 07/25/24 14:41 07/25/24 14:41 07/25/24 15:00 Temperature Pulse Rate 61 63 Respiratory Rate 27 H 31 H Blood Pressure 170/72 H Pulse Oximetry 97 95 Oxygen Delivery Method 07/25/24 15:30 07/25/24 16:00 Temperature Pulse Rate 63 61 Respiratory Rate 34 H 28 H Blood Pressure Pulse Oximetry 95 96 Oxygen Delivery Method Oxygen Delivery Method Room Air Narrative Exam Narrative: She is alert and oriented x3. No apparent distress. Pupils are equally round and reactive to light and accommodation. Extraocular muscles are intact Sclerae are pink and nonicteric No lymph nodes are felt head, neck, supraclavicular area JVD is less than 6 cm No carotid bruits are heard There is no thyromegaly Heart is regular rate and rhythm without murmur Lungs are clear on the left with right base crackles that clear with coughing Abdomen is soft, bowel sounds positive, nontender, no organomegaly. Extremities have no ankle edema Neurologic exam: There is no dysmetria. Jqxhil-vb-mcoi pointing is accurate. Peripheral vision is bilaterally missing about 20?. This is symmetric. Cranial nerves 2-12 test intact Motor function is 5/5 throughout. Babinski's do not react to stimulation at all. Objective Imaging CT scan - head: Radiologist's impression: PROCEDURE: CT ANGIO HEAD AND NECK INDICATIONS: left arm weakness TECHNIQUE: After the administration of intravenous contrast, 1 mm thick sections acquired from the aortic arch through the [place]. 3-dimensional [id number] (MIP) and/or volume rendering reformats were acquired of the central intracranial vasculature and neck separately. For radiation dose reduction, the following was used: automated exposure control, adjustment of mA and/or kV according to patient size. COMPARISON: [facility], CT, CT ANGIO HEAD AND NECK, 10/25/2022, 17:01. FINDINGS: Image quality: Suboptimal due to motion artifact and contrast timing. BRAIN: HEAD CT ANGIOGRAPHY: Anterior circulation: There is occlusion an M3 segment of the right MCA territory in the right frontal lobe (series 4, image 84). Posterior circulation: Visualized portions of the vertebral arteries demonstrate normal caliber, and join to form a normal appearing basilar artery. Flow within the posterior cerebral arteries is normal and symmetric. No aneurysms are seen. NECK CT ANGIOGRAPHY: Carotid system: The great vessels demonstrate a conventional anatomy as they arise from the aortic arch. The origins of the common carotid arteries appear patent. The common carotid arteries demonstrate normal caliber and courses. Greater than 75 percent narrowing of the right internal carotid artery. Less than 50 percent narrowing of the proximal left internal carotid artery. Posterior circulation: The origins of the vertebral arteries both appear widely patent. The more superior extracranial portions of both vertebral arteries also demonstrate normal courses and calibers. They join to form a normal appearing basilar artery. Soft tissues: Visualized neck soft tissues demonstrate no suspicious abnormalities. Bones: No suspicious bony lesions. Visualized cervical spine appears normally aligned. 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 High-grade narrowing of the proximal right internal carotid artery and moderate narrowing of the proximal left internal carotid artery. Contrast timing is not optimal on this examination. Consider evaluation with carotid ultrasound for confirmation. Findings discussed with Dr. Gibson at 149 p.m. On 07/24/2024. Labs 07/25/24 13:24 07/25/24 13:24 Labs: Laboratory Results - last 24 hr 07/25/24 07/25/24 07/25/24 13:24 14:40 14:40 WBC 5.8 RBC 4.82 Hgb 12.8 Hct 39.6 MCV 82.1 MCH 26.5 MCHC 32.3 RDW 15.2 H Plt Count 252 Neut % (Auto) 54.8 Lymph % (Auto) 28.1 [place] % (Auto) 10.3 Eos % (Auto) 6.0 H Baso % (Auto) 0.8 Neut # (Auto) 3200 Lymph # (Auto) 1600 [place] # (Auto) 600 Eos # (Auto) 300 Baso # (Auto) 0 PT 11.7 INR 1.0 APTT 35 Sodium 140 Potassium 4.4 Chloride 103 Carbon Dioxide 32 BUN 22 H Creatinine 1.15 H Estimated GFR 49 L BUN/Creatinine Ratio 19.1 Glucose 86 Calcium 9.4 Magnesium 1.9 Total Bilirubin 0.3 AST 30 ALT 23 Alkaline Phosphatase 58 Total Creatine Kinase 62 Troponin I < 0.012 Total Protein 7.6 Albumin 4.2 Globulin 3.4 Albumin/Globulin Ratio 1.2 Urine Color Yellow Urine Appearance Clear Urine pH 5.5 Normal Ur Specific [place] 1.015 Urine Protein Negative Urine Glucose (UA) Negative Urine Ketones Trace H Urine Occult Blood Negative Urine Nitrate Negative Urine Bilirubin Negative Urine Urobilinogen 0.2 Ur Leukocyte Esterase Negative Urine RBC None seen Urine WBC None seen Ur Squamous Epith Cells None seen Urine Bacteria None seen Hyaline Casts 1-5/lpf Ur Culture Indicated? Cult not indicated Vol Urine Centrifuged 10ml (spun) U Opiates 300ng/mL cut Negative Ur Oxycodone Screen Negative Urine Methadone Screen Negative Ur Barbiturates Screen Negative U Tricyclic Antidepress Negative Ur Phencyclidine Scrn Negative Ur Amphetamines Screen Negative U Methamphetamines Scrn Negative Ur MDMA Scrn (Ecstasy) Negative U Benzodiazepines Scrn Negative Urine Cocaine Screen Negative U Marijuana (THC) Screen Negative Urine Specific [place] Normal Ur Creatinine Normal Assessment & Plan Assessment & Plan narrative: This is a 78-year-old female with a history of prior TIA, hypertension, hyperlipidemia, hypothyroidism and depression who presents with a short episode of left arm weakness and dysarthria. She lives with her sister who says this morning she got up and was trying to clean the dishes in the morning after breakfast but was vertiginous and needed to lay down. This was around 10:00 a.m. Around 12:00 p.m. noon she started having left arm weakness difficulty speaking and some facial droop. He sister says that by the time 911 EMS arrived her symptoms had completely resolved. Transient ischemic attack, present on admission -transient symptoms of vertigo, dysarthria and left arm weakness fully resolved. Imaging suggestive of bilateral carotid stenosis and right middle cerebral artery occlusion. -check brain MRI, place on telemetry, do carotid ultrasound and echocardiogram. -begin DAPT with continuation of aspirin 81 mg daily, adding 75 mg of Plavix for at least 21 days. -increase atorvastatin to 80 mg daily. Hypertension -continue lisinopril and carvedilol. Permissive hypertension was not recommended. Hyperlipidemia -increase atorvastatin to 80 mg daily. Possible carotid stenosis -carotid ultrasound ordered. Depression -continue fluoxetine Hypothyroidism -continue levothyroxine DVT prevention SCD. She is mobilizing normally. Her closest relative and backup decision maker is her sister who she lives with. Time-Based Coding :: [TOTAL MINUTES] spent with patient and on the chart (including review of chart, obtaining history, exam, reviewing outside data, placing orders, documenting exam and treatment plan, and counseling patient) on [DATE].
[2024-07-25] MEDS: ATORVASTATIN 20 MG TABLET 80 MG PO (20:10)
[2024-07-25] MEDS: carvediloL 12.5 MG TABLET 25 MG PO (20:10)
[2024-07-26] VITALS (9 sets, daily range): BP systolic 119–159; BP diastolic 52–65; PULSE 63–75; RESP 14–24; TEMP 36–36.7; O2SAT 94–97
[2024-07-26] MEDS: LEVOTHYROXINE 50 MCG TABLET PO (05:57)
--- NOTE | 2024-07-26 06:54 | PC.NURSE ---
[facility] shift [facility]: Patient AxOx4, VSS. NIH: 0. Denies weakness, dizziness, or vision changes. Denies pain. Ambulating in room independently. Oriented to call-light. Plan of care ongoing.
--- NOTE | 2024-07-26 07:25 | P.PN_ITS ---
Subjective Subjective Interval history: She is seen today to follow-up her right frontal lobe CVA. The MRI shows a moderate-sized stroke. Her symptoms have completely resolved. She is now on DAPT. She came in at baseline on aspirin. 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 An echocardiogram and carotid ultrasound to clarify whether this is embolic or ischemic is pending for today. This is likely an ischemic stroke. Exam Vital Signs (past 8 hours): - 07/26/24 00:00 07/26/24 04:00 Temperature 98.1 F 98.0 F Pulse Rate 63 64 Respiratory Rate 24 Blood Pressure 119/52 L 130/56 L Pulse Oximetry 95 95 Oxygen Flow Rate 0 0 Oxygen Delivery Method Room Air Oxygen Flow Rate 0 Narrative Exam Narrative: Alert and oriented x3. No apparent distress. No dysphagia, dysarthria or left hand weakness. Heart is regular rate and rhythm without murmur Lungs are clear to auscultation bilaterally Extremities have no ankle edema Motor function in the upper extremities is 5/5. Objective Labs 07/25/24 13:24 07/25/24 13:24 Labs: Laboratory Results - last 24 hr 07/25/24 07/25/24 07/25/24 13:24 14:40 14:40 WBC 5.8 RBC 4.82 Hgb 12.8 Hct 39.6 MCV 82.1 MCH 26.5 MCHC 32.3 RDW 15.2 H Plt Count 252 Neut % (Auto) 54.8 Lymph % (Auto) 28.1 [place] % (Auto) 10.3 Eos % (Auto) 6.0 H Baso % (Auto) 0.8 Neut # (Auto) 3200 Lymph # (Auto) 1600 [place] # (Auto) 600 Eos # (Auto) 300 Baso # (Auto) 0 PT 11.7 INR 1.0 APTT 35 Sodium 140 Potassium 4.4 Chloride 103 Carbon Dioxide 32 BUN 22 H Creatinine 1.15 H Estimated GFR 49 L BUN/Creatinine Ratio 19.1 Glucose 86 Calcium 9.4 Magnesium 1.9 Total Bilirubin 0.3 AST 30 ALT 23 Alkaline Phosphatase 58 Total Creatine Kinase 62 Troponin I < 0.012 Total Protein 7.6 Albumin 4.2 Globulin 3.4 Albumin/Globulin Ratio 1.2 Urine Color Yellow Urine Appearance Clear Urine pH 5.5 Normal Ur Specific [place] 1.015 Urine Protein Negative Urine Glucose (UA) Negative Urine Ketones Trace H Urine Occult Blood Negative Urine Nitrate Negative Urine Bilirubin Negative Urine Urobilinogen 0.2 Ur Leukocyte Esterase Negative Urine RBC None seen Urine WBC None seen Ur Squamous Epith Cells None seen Urine Bacteria None seen Hyaline Casts 1-5/lpf Ur Culture Indicated? Cult not indicated Vol Urine Centrifuged 10ml (spun) U Opiates 300ng/mL cut Negative Ur Oxycodone Screen Negative Urine Methadone Screen Negative Ur Barbiturates Screen Negative U Tricyclic Antidepress Negative Ur Phencyclidine Scrn Negative Ur Amphetamines Screen Negative U Methamphetamines Scrn Negative Ur MDMA Scrn (Ecstasy) Negative U Benzodiazepines Scrn Negative Urine Cocaine Screen Negative U Marijuana (THC) Screen Negative Urine Specific [place] Normal Ur Creatinine Normal PFSH Medical History Herniated nucleus pulposus, L2-3 Plantar warts Fractures History of mumps History of measles History of chickenpox Cataracts, bilateral (~2009) Endometriosis (~1966) Diverticulosis (~2019) Cardiac arrhythmia (~1989) Hypothyroid Hypertension (~1964) Surgical History History of cataract surgery (~2019) Hx of hemorrhoidectomy (~1969) Anesthesia (~1974) History of cholecystectomy (~1999) History of hysterectomy (~1974) Family History Father Hypertension Congestive heart failure Mother Hypertension Congestive heart failure Social History household members: family Smoking Status: Former smoker Tobacco: How many years used: 50 quit status: has quit before alcohol intake: current substance use type: marijuana Assessment & Plan Assessment & Plan narrative: This is a 78-year-old female with a history of prior TIA, hypertension, hyperlipidemia, hypothyroidism and depression who presents with a short episode of left arm weakness and dysarthria. She lives with her sister who says this morning she got up and was trying to clean the dishes in the morning after breakfast but was vertiginous and needed to lay down. This was around 10:00 a.m. Around 12:00 p.m. noon she started having left arm weakness difficulty speaking and some facial droop. He sister says that by the time 911 EMS arrived her symptoms had completely resolved. Right frontal CVA, present on admission -transient symptoms of vertigo, dysarthria and left arm weakness fully resolved. Imaging suggestive of bilateral carotid stenosis and right middle cerebral artery occlusion. -continue telemetry, do carotid ultrasound and echocardiogram. -MRI shows moderate-size right frontal CVA -begin DAPT with continuation of aspirin 81 mg daily, adding 75 mg of Plavix for 21 days. -since this is an aspirin failure the 75 mg of Plavix will be continued lifelong and the aspirin will probably be stopped at 21 days. -increased atorvastatin to 80 mg daily. Hypertension -now that the stroke has been confirmed permissive hypertension will be planned for the next 48 hours. -holding lisinopril and carvedilol. Hyperlipidemia -increases atorvastatin to 80 mg daily. Possible carotid stenosis -carotid ultrasound pending Depression -continue fluoxetine Hypothyroidism -continue levothyroxine DVT prevention SCD. She is mobilizing normally. Her closest relative and backup decision maker is her sister who she lives with. Time-Based Coding :: [TOTAL MINUTES] spent with patient and on the chart (including review of chart, obtaining history, exam, reviewing outside data, placing orders, documenting exam and treatment plan, and counseling patient) on [DATE].
--- NOTE | 2024-07-26 08:00 | DI.US.S_ITS ---
PROCEDURE: US CAROTID DOPPLER BI INDICATIONS: TIA TECHNIQUE: Color and pulse Doppler interrogation was performed of both carotid systems, with image documentation and velocity measurements. COMPARISON: None. FINDINGS: Stenosis calculations are based on SRU (Society of Radiologists in Ultrasound) criteria. Right side: Brachial blood pressure: 156/69 mm Hg. Common carotid artery peak systolic velocity: 51 cm/sec. Internal carotid artery peak systolic velocity: 345 cm/sec. Internal carotid artery end diastolic velocity: 165 cm/sec. External carotid artery peak systolic velocity: 150 cm/sec. ICA/CCA peak systolic ratio: 6.8 . Parrish scale imaging description: Severe internal carotid artery stenosis Percent internal carotid artery stenosis: By peak systolic velocity criteria, there is a greater than 70% proximal right internal carotid artery stenosis. . Vertebral artery: Flow direction is antegrade. Left side: Brachial blood pressure: 154/64 mm Hg. Common carotid artery peak systolic velocity: 85 cm/sec. Internal carotid artery peak systolic velocity: 123 cm/sec. Internal carotid artery end diastolic velocity: 40 cm/sec. External carotid artery peak systolic velocity: 130 cm/sec. ICA/CCA peak systolic ratio: 1.5 . Parrish scale imaging description: Calcific plaque resulting in mild stenosis. Percent internal carotid artery stenosis: By peak systolic velocity criteria, there is a less than 50% stenosis of the proximal left internal carotid artery. . Vertebral artery: Flow direction is antegrade. IMPRESSION: 1. In the right carotid artery, there is a greater than 70% stenosis based on peak systolic velocity criteria. 2. In the left carotid artery, there is a less than 50% stenosis based on peak systolic velocity criteria. 3. Antegrade vertebral arteries. Dictated by: Abhay Rushing M.D. on 07/26/2024 at 11:16 Approved by: Abhay Rushing M.D. on 07/26/2024 at 11:19
[2024-07-26] MEDS: ASPIRIN EC 81 MG TABLET PO (09:33)
[2024-07-26] MEDS: carvediloL 12.5 MG TABLET 25 MG PO (09:33)
[2024-07-26] MEDS: FLUoxetine 20 MG CAPSULE PO (09:35)
[2024-07-26] MEDS: lisinopriL 5 MG TABLET PO (09:35)
[2024-07-26] MEDS: ALPRAZolam 0.25 MG TABLET PO (09:35)
[2024-07-26] MEDS: CLOPIDOGREL 75 MG TABLET PO (09:35)
--- NOTE | 2024-07-26 09:50 | DI.MRI.S_ITS ---
PROCEDURE: MR HEAD/BRAIN WO CON INDICATIONS: TIA TECHNIQUE: Non-contrast axial T1 spin echo, axial T2 fast spin echo, sagittal and axial FLAIR, coronal T2 fast spin echo, axial gradient echo, axial diffusion and ADC through the brain. COMPARISON: [facility], , MR HEAD/BRAIN WO CON, 10/26/2022, 12:09. FINDINGS: Image quality: Excellent. CSF spaces: Ventricles appear symmetric in size and shape. Basal cisterns are patent. No extra-axial fluid collections. Brain: Moderate size area of restricted diffusion involving right frontal lobe is seen consistent with an acute infarction. Smaller full side of restricted diffusion involving right posterior parietal occipital region are also noted concerning for additional small full side of infarction. Hypointense signal is noted in these areas on ADC map. No intracranial bleeds or mass effects. There is cerebral volume loss for age. There are periventricular and deep white matter chronic small vessel ischemic changes. Brainstem appears normal. Normal intravascular flow voids are present. Skull and face: Calvarial bone marrow is normal in signal. Orbits are normal. Sinuses: Sinuses and mastoids are clear. IMPRESSION: 1. Moderate size acute infarction in right frontal lobe . Small acute lacune infarcts are noted in right posterior parietal/occipital lobe. 2. No evidence of acute intracranial bleed. No significant mass effect or midline shift. Dictated by: Manuel Brooks M.D. on 07/26/2024 at 10:26 Approved by: Manuel Brooks M.D. on 07/26/2024 at 10:28
--- NOTE | 2024-07-26 11:00 | CM.DANOTE ---
DCP Assessment note pt is a 79yo F here following potential mini TIA. MRI pending. PCP Debra Puentes Payer [facility] and self pay MECHANICAL DESIGN DRAFTER reviewed EMR. Per chart review, pt was experiencing left sided weakenss and dizziness. Symptoms resolved in the ED but admitted for testing. MRI pending, echo complete. Per provider in morning rounds, no need for therapy evals. anticipate home today. Per RN, pt ambulating indep in room. MECHANICAL DESIGN DRAFTER met with pt and sister in room. Pt and sister Nieves live together indep in [place]. no DME/drives. denies any CM/DCP needs at this time. Pt very eager to dc home because it's her birthday. P: anticipate dc home pending MRI results today and OP f/u recommended. no identified barriers to safe dc home at this time. CM team will continue to follow as needed. KRISTINE Abdalla Discharge Planning/Care Management CM Discharge Assessment Start: 07/26/24 10:59 Freq: Status: Active Protocol: Document 07/26/24 10:59 (Rec: 07/26/24 10:59 [id number]) Discharge Planning Assessment Assigned Residential Pest Control Technician KRISTINE Campos DPOA/Assigned Designee Name sister Pickett Contact Information [phone] Advance Directives? No History Provided By Patient,Medical Record Prior Living Arrangements House Household Members family Comment sister Type of transporation used prior to Drives own vehicle admit Independent with ADL's Yes Is patient alert and oriented? Yes Comment Home w/sister expected Discharge Plan Home Transportation Arrangement Sister Referrals Initiated None needed Whiteboard Updated in Patient Room with Yes name and ext. # of Residential Pest Control Technician Review Status In Process Please Provide Date Initial DC 07/26/24 Assessment Was Performed Next Review Type Continued Stay Review
[2024-07-26] MEDS: ACETAMINOPHEN 325 MG TABLET 650 MG PO (20:15)
[2024-07-26] MEDS: ATORVASTATIN 20 MG TABLET 80 MG PO (20:15)
--- NOTE | 2024-07-26 23:29 | PC.NURSE ---
NOC: Resus status currently not ordered. Asked patient about code status; pt states she is DNR she does not want CPR and does not want to end up as a vegetable. Pt states I've heard that people don't come out well after chest compressions. Educated on code status meanings; pt repeated that she is DNR. Pt A&Ox4, awake, appropriate. Contacted MD Keenan, received new orders to change code status to DNR. Care continues.
[2024-07-27] VITALS: BP 134/48; PULSE 78; RESP 18; TEMP 36.6; O2SAT 91
[2024-07-27 04:00] VITALS: BP 152/63; PULSE 74; RESP 18; TEMP 36.1; O2SAT 94
[2024-07-27] MEDS: LEVOTHYROXINE 50 MCG TABLET PO (05:48)
--- NOTE | 2024-07-27 07:37 | P.PN_ITS ---
Subjective Subjective Date Patient Seen: 07/27/24 Interval history: She is seen today to follow-up her recent right frontal CVA and right internal carotid severe stenosis. She is waiting for acceptance to [facility] for carotid intervention per Dr. Dawn. She continues to be remarkably symptom-free. Exam Vital Signs (past 8 hours): - 07/27/24 00:00 07/27/24 04:00 Temperature 97.9 F 97.0 F L Pulse Rate 78 74 Respiratory Rate 18 18 Blood Pressure 134/48 L 152/63 H Pulse Oximetry 91 94 Oxygen Flow Rate 0 0 Oxygen Delivery Method Room Air Oxygen Flow Rate 0 Narrative Exam Narrative: Alert and oriented x3. No apparent distress. Patient awaiting for transfer. Heart is regular rate and rhythm without murmur Lungs are clear to auscultation bilaterally Extremities have no ankle edema Cranial nerves 2-12 test intact Motor function is 5/5 throughout No ataxia. No discoordination. Objective Labs 07/25/24 13:24 07/25/24 13:24 [facility] Medical History Herniated nucleus pulposus, L2-3 Plantar warts Fractures History of mumps History of measles History of chickenpox Cataracts, bilateral (~2009) Endometriosis (~1966) Diverticulosis (~2019) Cardiac arrhythmia (~1989) Hypothyroid Hypertension (~1965) Surgical History History of cataract surgery (~2019) Hx of hemorrhoidectomy (~1969) Anesthesia (~1974) History of cholecystectomy (~1999) History of hysterectomy (~1974) Family History Father Hypertension Congestive heart failure Mother Hypertension Congestive heart failure Social History household members: family Smoking Status: Former smoker Tobacco: How many years used: 50 quit status: has quit before alcohol intake: current substance use type: marijuana Assessment & Plan Assessment & Plan narrative: This is a 78-year-old female with a history of prior TIA, hypertension, hyperlipidemia, hypothyroidism and depression who presents with a short episode of left arm weakness and dysarthria. She lives with her sister who says this morning she got up and was trying to clean the dishes in the morning after breakfast but was vertiginous and needed to lay down. This was around 10:00 a.m. Around 12:00 p.m. noon she started having left arm weakness difficulty speaking and some facial droop. He sister says that by the time 911 EMS arrived her symptoms had completely resolved. Right frontal CVA, present on admission -transient symptoms of vertigo, dysarthria and left arm weakness fully resolved. -carotid ultrasound confirms severe stenosis of the right carotid artery at 70% + -discussed with vascular surgery, Dr. Dawn who indicated that carotid surgery should be done right away. -she remains at very high risk for recurrent stroke. -MRI shows moderate-size right frontal CVA -echocardiogram shows mild aortic stenosis/aortic regurgitation and 60-65% ejection fraction. No septal defect reported. -now on DAPT with continuation of aspirin 81 mg daily, adding 75 mg of Plavix for 21 days. Final chronic treatment regimen to be determined by vascular surgery. -increased atorvastatin to 80 mg daily. Hypertension -now that the stroke has been confirmed permissive hypertension will be planned for the next 48 hours. -holding lisinopril and carvedilol. Resume on 07/28. Hyperlipidemia -increased atorvastatin to 80 mg daily. Severe right internal carotid stenosis -carotid ultrasound confirmed. Pending vascular surgery. Depression -continue fluoxetine Hypothyroidism -continue levothyroxine DVT prevention SCD. She is mobilizing normally. Her closest relative and backup decision maker is her sister who she lives with. Disposition: Pending bed availability at [facility] where vascular surgery will proceed with carotid intervention once she arrives and they evaluate her. Time-Based Coding :: [TOTAL MINUTES] spent with patient and on the chart (including review of chart, obtaining history, exam, reviewing outside data, placing orders, documenting exam and treatment plan, and counseling patient) on [DATE].
[2024-07-27 07:58] VITALS: BP 169/63; PULSE 70; RESP 18; TEMP 36.6; O2SAT 95
[2024-07-27] MEDS: FLUoxetine 20 MG CAPSULE PO (09:06)
[2024-07-27] MEDS: ASPIRIN EC 81 MG TABLET PO (09:06)
[2024-07-27] MEDS: CLOPIDOGREL 75 MG TABLET PO (09:06)
--- NOTE | 2024-07-27 09:55 | PC.NURSE ---
Addendum entered by Sharee Paula R.N. 07/27/24 11:41: 1130 Report given to oncoming RN. Plan of care discussed. Patient with no complaints at this time. Original Note: 0730 Report received from grayson RN. Patient AAO x's 3. Able to LEON. Denies pain, numbness and tingling. BUE and BLE, strong. Call light within reach and bed in lowest position.
[2024-07-27 11:00] VITALS: BP 146/68; PULSE 78; RESP 20; TEMP 36.9; O2SAT 95
--- NOTE | 2024-07-27 11:09 | CM.DPNOTE ---
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 pending bed availability. Surgeon recommends transfer and not dc to OP setting for follow up due to high risk of stroke. No further CM needs at this time. CM team will continue to follow as needed KRISTINE Abdalla
--- NOTE | 2024-07-27 12:08 | PC.NURSE ---
Addendum entered by Akil Spangler R.N. 07/27/24 12:10: patient has been updated by this nurse. Original Note: Follow up with charge nurse regarding status of [facility]. to [facility]. As of 1030 call placed by charge nurse, there is still no beds avail. Charge nurse states they will f/u again around 1530 today.
[2024-07-27 15:00] VITALS: BP 181/66; PULSE 66; RESP 15; TEMP 36.9; O2SAT 98
[2024-07-27] MEDS: ACETAMINOPHEN 325 MG TABLET 650 MG PO (16:00)
[2024-07-27] MEDS: ATORVASTATIN 20 MG TABLET 80 MG PO (20:02)
[2024-07-27] MEDS: SODIUM CHLORIDE 0.9% FLUSH 10 ML IV (20:31)
[2024-07-27 21:00] VITALS: BP 140/68; PULSE 77; RESP 18; TEMP 35.8; O2SAT 95
[2024-07-28 05:00] VITALS: BP 149/78; PULSE 72; RESP 18; TEMP 36.1; O2SAT 95
[2024-07-28] MEDS: LEVOTHYROXINE 50 MCG TABLET PO (05:39)
--- NOTE | 2024-07-28 07:29 | PM.PN.1 ---
Subjective Subjective Date Patient Seen: 07/28/24 Exam Vital Signs (past 8 hours): - 07/28/24 05:00 Temperature 97 F L Pulse Rate 72 Respiratory Rate 18 Blood Pressure 149/78 H Pulse Oximetry 95 Oxygen Flow Rate 0 Oxygen Delivery Method Room Air Oxygen Flow Rate 0 Objective Labs 07/25/24 13:24 07/25/24 13:24 [facility] Medical History Herniated nucleus pulposus, L2-3 Plantar warts Fractures History of mumps History of measles History of chickenpox Cataracts, bilateral (~2009) Endometriosis (~1966) Diverticulosis (~2019) Cardiac arrhythmia (~1989) Hypothyroid Hypertension (~1964) Surgical History History of cataract surgery (~2019) Hx of hemorrhoidectomy (~1969) Anesthesia (~1974) History of cholecystectomy (~1999) History of hysterectomy (~1974) Family History Father Hypertension Congestive heart failure Mother Hypertension Congestive heart failure Social History household members: family Smoking Status: Former smoker Tobacco: How many years used: 50 quit status: has quit before alcohol intake: current substance use type: marijuana Assessment & Plan Assessment & Plan narrative: This is a 78-year-old female with a history of prior TIA, hypertension, hyperlipidemia, hypothyroidism and depression who presents with a short episode of left arm weakness and dysarthria. She lives with her sister who says this morning she got up and was trying to clean the dishes in the morning after breakfast but was vertiginous and needed to lay down. This was around 10:00 a.m. Around 12:00 p.m. noon she started having left arm weakness difficulty speaking and some facial droop. He sister says that by the time 911 EMS arrived her symptoms had completely resolved. Right frontal CVA, present on admission -transient symptoms of vertigo, dysarthria and left arm weakness fully resolved. -carotid ultrasound confirms severe stenosis of the right carotid artery at 70% + -discussed with vascular surgery, Dr. Dawn who indicated that carotid surgery should be done right away. -she remains at very high risk for recurrent stroke. -MRI shows moderate-size right frontal CVA -echocardiogram shows mild aortic stenosis/aortic regurgitation and 60-65% ejection fraction. No septal defect reported. -now on DAPT with continuation of aspirin 81 mg daily, adding 75 mg of Plavix for 21 days. Final chronic treatment regimen to be determined by vascular surgery. -increased atorvastatin to 80 mg daily. Hypertension -now that the stroke has been confirmed permissive hypertension will be planned for the next 48 hours. -holding lisinopril and carvedilol. Resume on 07/28. Hyperlipidemia -increased atorvastatin to 80 mg daily. Severe right internal carotid stenosis -carotid ultrasound confirmed. Pending vascular surgery. Depression -continue fluoxetine Hypothyroidism -continue levothyroxine DVT prevention SCD. She is mobilizing normally. Her closest relative and backup decision maker is her sister who she lives with. Disposition: Pending bed availability at [facility] where vascular surgery will proceed with carotid intervention once she arrives and they evaluate her. Time-Based Coding :: [TOTAL MINUTES] spent with patient and on the chart (including review of chart, obtaining history, exam, reviewing outside data, placing orders, documenting exam and treatment plan, and counseling patient) on [DATE].
[2024-07-28 08:00] VITALS: BP 148/72; PULSE 80; RESP 16; TEMP 36; O2SAT 96
[2024-07-28] MEDS: FLUoxetine 20 MG CAPSULE PO (09:39)
[2024-07-28] MEDS: SODIUM CHLORIDE 0.9% FLUSH 10 ML IV (09:39)
[2024-07-28] MEDS: CLOPIDOGREL 75 MG TABLET PO (09:39)
[2024-07-28] MEDS: ASPIRIN EC 81 MG TABLET PO (09:39)
[2024-07-28 12:21] VITALS: BP 140/63; PULSE 83; RESP 18; TEMP 36.1; O2SAT 96
--- NOTE | 2024-07-28 14:25 | PM.DS.1 ---
History of Present Illness History of Present Illness Date Patient Seen: 07/28/24 Time Patient Seen: 14:25 Chief complaint: Dizzyness, Poss Mini-Stroke Narrative: This is a 78-year-old female with a history of prior TIA, hypertension, hyperlipidemia, hypothyroidism and depression who presents with a short episode of left arm weakness and dysarthria. She lives with her sister who says this morning she got up and was trying to clean the dishes in the morning after breakfast but was vertiginous and needed to lay down. This was around 10:00 a.m. Around 12:00 p.m. noon she started having left arm weakness difficulty speaking and some facial droop. He sister says that by the time 911 EMS arrived her symptoms had completely resolved. She did have 1 hypotensive reading with EMS. She was brought in by private car and now symptoms have completely resolved. She does take aspirin and atorvastatin daily. The brain CTA suggests right MCA occlusion, right internal carotid artery high-grade narrowing and moderate narrowing of the proximal left internal carotid artery. The ED physician spoke with the stroke investment consultant who recommended dual antiplatelet therapy and indicated that she would not be a candidate for any intervention due to resolution of her symptoms. She will also need ultrasound to clarify her carotid situation. An echocardiogram will be done and high-dose statin will be started. Discharge Providers Provider Date of admission: 07/27/24 11:49 Discharge Date: 07/28/24 Primary care physician: FRANKIE Retana Discharge provider: Jose M Andre MD Summary Hospital Course Discharge Diagnosis: This is a 78-year-old female with a history of prior TIA, hypertension, hyperlipidemia, hypothyroidism and depression who presents with a short episode of left arm weakness and dysarthria. She lives with her sister who says this morning she got up and was trying to clean the dishes in the morning after breakfast but was vertiginous and needed to lay down. This was around 10:00 a.m. Around 12:00 p.m. noon she started having left arm weakness difficulty speaking and some facial droop. He sister says that by the time 911 EMS arrived her symptoms had completely resolved. Right frontal CVA, present on admission -transient symptoms of vertigo, dysarthria and left arm weakness fully resolved. -carotid ultrasound confirms severe stenosis of the right carotid artery at 70% + -discussed with vascular surgery, Dr. Dawn who indicated that carotid surgery should be done right away. -she remains at very high risk for recurrent stroke. -MRI shows moderate-size right frontal CVA -echocardiogram shows mild aortic stenosis/aortic regurgitation and 60-65% ejection fraction. No septal defect reported. -now on DAPT with continuation of aspirin 81 mg daily, adding 75 mg of Plavix for 21 days. Final chronic treatment regimen to be determined by vascular surgery. -increased atorvastatin to 80 mg daily. Hypertension -now that the stroke has been confirmed permissive hypertension will be planned for the next 48 hours. -holding lisinopril and carvedilol. Resumed on 07/28. Hyperlipidemia -increased atorvastatin to 80 mg daily. Severe right internal carotid stenosis -carotid ultrasound confirmed. Pending vascular surgery. Depression -continue fluoxetine Hypothyroidism -continue levothyroxine Hospital Course: She came in with acute onset of dysarthria and left hand weakness for less than 1 hour. Symptoms had resolved by the time she was seen in the ED. The initial CTA suggested right MCA occlusion. There was also bilateral carotid disease. MRI showed a right frontal CVA and carotid ultrasound documented severe stenosis of the right carotid artery. She was started on Plavix, aspirin and the Lipitor dose was increased to 80 mg. She was continued on carvedilol/lisinopril until the stroke was documented and then 48 hours of permissive Hypertension were used. Her blood pressure medicines were resumed after 48 hours. She had no recurrence of symptoms. She was discussed with multiple vascular surgeons who accepted her for potential surgery and then after several days finally a hospital with an open bed was found and she was transferred to the [facility] under the care of Dr. Jacobo Calderon. Status at Discharge Cognitive/behavioral status at discharge: oriented Functional status at discharge: independent ambulation Overall status at discharge: patient is back to baseline Time Spent with Patient Time spent: Greater than 30 minutes Exam Vital Signs (past 8 hours): - 07/28/24 08:00 07/28/24 12:21 Temperature 96.8 F L 97 F L Pulse Rate 80 83 Respiratory Rate 16 18 Blood Pressure 148/72 H 140/63 Pulse Oximetry 96 96 Oxygen Flow Rate 0 0 Oxygen Delivery Method Room Air Oxygen Flow Rate 0 Narrative Exam Narrative: Alert and oriented x3. No apparent distress. Heart is regular rate and rhythm without murmur Lungs are clear to auscultation bilaterally Extremities have no ankle edema. She has a distinctive right carotid bruit to auscultation. Motor function is 5/5 throughout There is no tremor. Cranial nerves 2-12 test intact There is no discoordination. Objective Labs 07/25/24 13:24 07/25/24 13:24 [facility] Medical History Herniated nucleus pulposus, L2-3 Plantar warts Fractures History of mumps History of measles History of chickenpox Cataracts, bilateral (~2009) Endometriosis (~1966) Diverticulosis (~2019) Cardiac arrhythmia (~1989) Hypothyroid Hypertension (~1964) Surgical History History of cataract surgery (~2019) Hx of hemorrhoidectomy (~1969) Anesthesia (~1974) History of cholecystectomy (~1999) History of hysterectomy (~1974) Family History Father Hypertension Congestive heart failure Mother Hypertension Congestive heart failure Social History household members: family Smoking Status: Former smoker Tobacco: How many years used: 50 quit status: has quit before alcohol intake: current substance use type: marijuana Discharge Plan Discharge Plan Patient Disposition: [facility] Other facility: [facility] Under care of provider: Dr. Jacobo Calderon Diet/Activity/Treatments Diet: Low-cholesterol Liquid consistency: Normal/Thin Food texture: Regular Discharge Data Primary Care Provider: Debra Puentes
[2024-07-28 16:00] VITALS: BP 177/78; PULSE 81; RESP 17; TEMP 35.9
[2024-07-28 16:55] LABS: COVID19 -Nasal RAPID Negative (Negative)
--- NOTE | 2024-07-28 18:49 | PC.NURSE ---
Day shift: Left unit at approx 1850. Has all personal belongings. [facility]. Report given to transport team and all questions answered.
--- NOTE | 2024-07-28 19:00 | PC.NURSE ---
Day shift: Report given to [facility] @ 1900 all questions answered, gave viscose cellar charge hand RN contact information if any further questions occurred.
== END 2024-07-28 18:51 | disposition short-term general hospital (02) | DRG 64 ==
LOC: ED 16:03 → AC 16:51 → ED 17:07 → AC 18:25
PROVIDERS: Admitting Provider Family Medicine; Emergency Provider Emergency Medicine; PCP Nurse Practitioner Primary Care; Referring Provider Emergency Medicine; Visit Provider Family Medicine
DX: I63.231 Cerebral infarction due to unspecified occlusion or stenosis of right carotid arteries (principal); I63.511 Cerebral infarction due to unspecified occlusion or stenosis of right middle cerebral artery; I10 Essential (primary) hypertension; E78.5 Hyperlipidemia, unspecified; E03.9 Hypothyroidism, unspecified; F32.A Depression, unspecified; R29.810 Facial weakness; R47.1 Dysarthria and anarthria; R47.89 Other speech disturbances; G83.24 Monoplegia of upper limb affecting left nondominant side; I35.0 Nonrheumatic aortic (valve) stenosis; I35.1 Nonrheumatic aortic (valve) insufficiency; R29.700 NIHSS score 0; Z86.73 Personal history of transient ischemic attack (TIA), and cerebral infarction without residual deficits; Z87.891 Personal history of nicotine dependence
CPT/HCPCS: 36415; 70450; 70496; 70498; 70551; 71045; 80053; 80305; 81001; 82550; 82962; 83735; 84484; 85025; 85610; 85730; 87635; 93005; 93010; 93306; 93880; 99284; 99285; G0378; Q9967

== ENCOUNTER → 2024-12-07 14:41 | Outpatient (CLI) | payer OTHER, SELFPAY ==
[2024-07-25 17:18] VITALS: BMI 29.9
== END ==
LOC: RESP 14:43
PROVIDERS: PCP Nurse Practitioner Primary Care; Referring Provider Nurse Practitioner Primary Care; Visit Provider Nurse Practitioner Primary Care
DX: R05.3 Chronic cough (principal); Z87.891 Personal history of nicotine dependence; R94.2 Abnormal results of pulmonary function studies
CPT/HCPCS: 94060; 94726; 94729

== ENCOUNTER → 2025-01-26 15:00 | Outpatient (CLI) | payer OTHER, SELFPAY ==
[2024-07-25 17:18] VITALS: BMI 29.9
--- NOTE | 2025-01-26 15:02 | DI.US.S_ITS ---
PROCEDURE: US CAROTID DOPPLER BI INDICATIONS: peripheral vascular disease TECHNIQUE: Color and pulse Doppler interrogation was performed of both carotid systems, with image documentation and velocity measurements. COMPARISON: [facility], , CAROTID DOPPLER BI, 07/26/2024, 8:05. FINDINGS: Stenosis calculations are based on SRU (Society of Radiologists in Ultrasound) criteria. Right side: Brachial blood pressure: 190/83 mm Hg. Common carotid artery peak systolic velocity: 31 cm/sec. Internal carotid artery peak systolic velocity: 90 cm/sec. Internal carotid artery end diastolic velocity: 20 cm/sec. External carotid artery peak systolic velocity: 196 cm/sec. ICA/CCA peak systolic ratio: 2.9 . Parrish scale imaging description: Intimal medial thickening in the common carotid artery and calcified and noncalcified plaque in the distal CCA. The proximal internal carotid artery is widely patent post CEA. The waveform is appropriate, low resistance. External carotid artery waveform is high resistance. Percent internal carotid artery stenosis: Less than 50% . Vertebral artery: Flow direction is antegrade. Left side: Brachial blood pressure: 199/87 mm Hg. Common carotid artery peak systolic velocity: 55 cm/sec. Internal carotid artery peak systolic velocity: 90 cm/sec. Internal carotid artery end diastolic velocity: 29 cm/sec. External carotid artery peak systolic velocity: 112 cm/sec. ICA/CCA peak systolic ratio: 1.6 . Parrish scale imaging description: Common carotid artery intimal medial thickening. Several foci of calcified plaque in the mid CCA. Mild calcified plaque at the carotid bulb there is a mild subjective luminal stenosis at the ICA origin and minor spectral broadening of the mid ICA waveform. Percent internal carotid artery stenosis: Less than 50% . Vertebral artery: Flow direction is antegrade. IMPRESSION: 1. In the right carotid artery, there is no hemodynamically significant stenosis based on peak systolic velocity criteria. 2. In the left carotid artery, there is no hemodynamically significant stenosis based on peak systolic velocity criteria. 3. Antegrade vertebral arteries. Dictated by: Shirin Goff M.D. on 01/27/2025 at 12:33 Approved by: Shirin Goff M.D. on 01/27/2025 at 13:19
== END ==
LOC: US 15:01
PROVIDERS: PCP Nurse Practitioner Primary Care
DX: I73.9 Peripheral vascular disease, unspecified (principal)
CPT/HCPCS: 93880

== ENCOUNTER 2025-05-10 16:02 | Emergency (ER) | payer OTHER, SELFPAY ==
[2024-07-25 17:18] VITALS: BMI 29.9
[2025-05-10] VITALS (15 sets, daily range): BP systolic 105–170; BP diastolic 51–70; PULSE 65–97; RESP 14–38; TEMP 36.5; O2SAT 91–100; BMI 30.6
--- NOTE | 2025-05-10 16:14 | ED_ITS ---
HPI - General Adult
--- NOTE | 2025-05-10 16:14 | ED.GENADULT ---
HPI - General Adult General Chief complaint: Abdominal Pain Stated complaint: abd pain Time Seen by Provider: 05/10/25 16:02 Source: patient Mode of arrival: Ambulatory History of Present Illness HPI narrative: 79-year-old woman with a history of hypertension, hypothyroidism, hyperlipidemia presents with nausea vomiting diarrhea and left lower quadrant abdominal pain. Over the last 3-4 days she has had profuse watery diarrhea with crampy abdominal pain and low-grade fevers with myalgias. Today began having significant left lower quadrant pains that feel similar to a prior episode of diverticulitis. She has been able to drink fluids but has been on a clear liquid diet for the last 2 days. No chest pain, palpitation she is not complaining of headaches. Related Data Home Medications ?Medication ?Instructions ?Recorded ?Confirmed lisinopril 5 mg tablet 5 mg PO QDAY ##0 08/25/11 07/25/24 Previous Rx's ?Medication ?Instructions ?Recorded carvedilol 25 mg tablet 25 mg PO BID #180 tabs 02/20/21 aspirin 81 mg tablet,delayed 81 mg PO DAILY #30 tabs 10/26/22 release atorvastatin 20 mg tablet (Lipitor) 20 mg PO BEDTIME #30 tabs 10/26/22 fluoxetine 20 mg capsule (Prozac) 20 mg PO ONCE #30 caps 10/26/22 levothyroxine 50 mcg tablet 50 mcg PO DAILY@0600 #30 tabs 10/26/22 (Synthroid) amoxicillin 875 mg-potassium 1 tab PO BID #20 tabs 05/10/25 clavulanate 125 mg tablet ondansetron 4 mg disintegrating 4 mg PO Q8H PRN nausea and 05/10/25 tablet vomiting #14 tabs Allergies Allergy/AdvReac Type Severity Reaction Status Date / Time codeine Allergy Mild rash, Verified 05/10/25 16:06 vomiting Review of Systems Review of Systems Narrative: Pertinent positive and negative findings as per HPI Patient History Medical History Herniated nucleus pulposus, L2-3 Plantar warts Fractures History of mumps History of measles History of chickenpox Cataracts, bilateral (~2009) Endometriosis (~1967) Diverticulosis (~2019) Cardiac arrhythmia (~1989) Hypothyroid Hypertension (~1965) Surgical History History of cataract surgery (~2019) Hx of hemorrhoidectomy (~1969) Anesthesia (~1974) History of cholecystectomy (~1999) History of hysterectomy (~1974) Family History Father Hypertension Congestive heart failure Mother Hypertension Congestive heart failure Social History household members: family Smoking Status: Former smoker Tobacco: How many years used: 50 quit status: has quit before alcohol intake: current substance use type: marijuana Smoking Status: Former smoker alcohol intake frequency: holidays/special occasions only Exam Initial Vital Signs Initial Vital Signs: Vital Signs Temperature 97.7 F 05/10/25 16:06 Pulse Rate 97 H 05/10/25 16:06 Respiratory Rate 20 05/10/25 16:06 Blood Pressure 105/65 05/10/25 16:06 Pulse Oximetry 97 05/10/25 16:06 Oxygen Delivery Method Room Air 05/10/25 16:06 General: Pale, dry mucous membranes, appears to be unwell but is able to fully cooperate with exam HEENT: Dry mucous membranes, normal sclera with reactive pupils, Respiratory: Lungs are clear to auscultation, no wheezing no rales no rhonchi. Full and symmetrical air movement Cardiac: Regular rate and rhythm no murmurs no bruits Abdomen: Soft, mild tenderness in the left lower quadrant without rebound or guarding. No flank pain Skin: Skin is somewhat pale but not diaphoretic. Neurologic: Globally weak but otherwise Grossly neurologically intact with no obvious asymmetries or abnormalities Extremities: No trauma, no lower extremity edema Psych: Cooperative, appropriate insight and affect Course Orders Ordered: ED Orders 05/10/25 16:15 XR chest 1V Stat EKG-12 Lead Stat 05/10/25 16:17 Urine Microscopic Stat 05/10/25 16:20 GI Panel (Film Array) Stat 05/10/25 16:37 Complete Blood Count AUTO DIFF Stat Comprehensive Metabolic Panel Stat Lactate (Lactic Acid) Stat Lipase Stat Magnesium Stat Procalcitonin Stat 05/10/25 16:58 Blood Culture Stat 05/10/25 17:23 CT abdomen pelvis w con Stat Discontinued Medications Hydromorphone HCl (Hydromorphone Hcl 0.5 Mg/0.5 Ml Syringe) 0.5 mg IV Q15MIN PRN PRN Reason: Pain, Last Admin: 05/10/25 16:50 Dose: 0.5 mg Documented By: KENF Sodium Chloride (Normal Saline 0.9%) 1,000 mls @ 1,000 mls/hr IV BOLUS ONE Stop: 05/10/25 17:13 Last Infusion: 05/10/25 18:51 Dose: Infused Documented By: Admin: 05/10/25 16:51 Dose: 1,000 mls/hr Documented By: ANDREAS Ceftriaxone Sodium 2,000 mg/ (Sodium Chloride) 100 mls @ 200 mls/hr IV NOW ONE Stop: 05/10/25 16:49 Last Infusion: 05/10/25 18:51 Dose: Infused Documented By: Admin: 05/10/25 17:13 Dose: 200 mls/hr Documented By: ANDREAS Ondansetron HCl (Ondansetron 4 Mg/2 Ml Inj) 4 mg IV NOW ONE Stop: 05/10/25 16:15 Last Admin: 05/10/25 16:50 Dose: 4 mg Documented By: ANDREAS Vital Signs Vital signs: Vital Signs - 8 hr 05/10/25 16:06 05/10/25 16:14 05/10/25 16:14 Temperature 97.7 F Pulse Rate 97 H 92 H Respiratory Rate 20 Blood Pressure 105/65 149/69 H Pulse Oximetry 97 94 Oxygen Delivery Method Room Air 05/10/25 16:27 05/10/25 16:27 05/10/25 16:30 Temperature Pulse Rate 85 Respiratory Rate Blood Pressure 134/63 118/57 L Pulse Oximetry 94 Oxygen Delivery Method 05/10/25 16:30 05/10/25 17:00 05/10/25 17:00 Temperature Pulse Rate 86 75 Respiratory Rate 18 17 Blood Pressure 108/51 L Pulse Oximetry 94 93 Oxygen Delivery Method 05/10/25 17:31 05/10/25 17:49 05/10/25 17:49 Temperature Pulse Rate 76 71 Respiratory Rate 20 18 Blood Pressure 138/63 Pulse Oximetry 98 99 Oxygen Delivery Method 05/10/25 18:00 05/10/25 18:00 05/10/25 18:30 Temperature Pulse Rate 70 76 Respiratory Rate 20 38 H Blood Pressure 170/70 H Pulse Oximetry 100 95 Oxygen Delivery Method 05/10/25 18:31 05/10/25 18:31 05/10/25 19:00 Temperature Pulse Rate 73 67 Respiratory Rate 14 22 Blood Pressure 123/57 L Pulse Oximetry 95 91 Oxygen Delivery Method 05/10/25 19:00 05/10/25 19:30 05/10/25 19:30 Temperature Pulse Rate 68 Respiratory Rate 24 Blood Pressure 113/56 L 110/55 L Pulse Oximetry 91 Oxygen Delivery Method 05/10/25 20:00 05/10/25 20:00 05/10/25 20:30 Temperature Pulse Rate 66 66 Respiratory Rate Blood Pressure 113/56 L Pulse Oximetry 93 92 Oxygen Delivery Method 05/10/25 20:30 05/10/25 21:00 05/10/25 21:00 Temperature Pulse Rate 65 Respiratory Rate 23 Blood Pressure 115/55 L 111/57 L Pulse Oximetry 94 Oxygen Delivery Method Medical Decision Making Lab Data 05/10/25 16:37 05/10/25 16:37 Labs: Lab Results 05/10/25 05/10/25 05/10/25 Range/Units 16:17 16:20 16:37 WBC 11.3 H (4.5-11.0) X10^3/uL RBC 5.10 (4.0-5.2) X10^6/uL Hgb 13.4 (12.0-16.0) g/dL Hct 40.8 (36-46) % MCV 80.0 (80-100) fL MCH 26.3 (26-34) PG MCHC 32.9 (30-36) % RDW 15.3 H (11.6-14.8) % Plt Count 255 (150-400) X10^3/uL Neut % (Auto) 76.9 H (50-75) % Lymph % (Auto) 11.3 L (25-40) % [place] % (Auto) 10.4 (3-14) % Eos % (Auto) 0.7 L (2-4) % Baso % (Auto) 0.7 (0-2) % Neut # (Auto) 8700 H (6264-8392) /uL Lymph # (Auto) 1300 (6254-8226) /uL [place] # (Auto) 1200 H (0-900) /uL Eos # (Auto) 100 (0-450) /uL Baso # (Auto) 100 (0-100) /uL Sodium 135 L (137-145) mmol/L Potassium 4.2 (3.4-5.1) mmol/L Chloride 101 (98-107) mmol/L Carbon Dioxide 24 (22-32) mmol/L BUN 13 (7-17) mg/dL Creatinine 1.02 (0.52-1.04) mg/dL Estimated GFR 56 L (>60) mL/min BUN/Creatinine Ratio 12.7 (6-22) Glucose 141 H (70-99) mg/dL Lactate 1.1 (0.7-2.1) mmol/L Calcium 9.7 (8.4-10.2) mg/dL Magnesium 1.7 (1.6-2.3) mg/dL Total Bilirubin 0.9 (0.2-1.3) mg/dL AST 48 H (14-36) IU/L ALT 42 H (<35) IU/L Alkaline Phosphatase 119 (38-126) U/L Total Protein 8.5 H (6.3-8.2) g/dL Albumin 4.5 (3.5-5.0) g/dL Globulin 4.0 (1.7-4.1) g/dL Albumin/Globulin Ratio 1.1 (1.0-2.8) Lipase 65 (23-300) U/L Procalcitonin 0.070 (<0.5) ng/mL Urine RBC 0-1/hpf (0-5/HPF) Urine WBC 0-1/hpf (0-5/HPF) Ur Squamous Epith Cells 1-5 /hpf (0-5/HPF) Urine Bacteria Occasional (0-1) (None) Ur Culture Indicated? Cult not indicated Vol Urine Centrifuged 10ml (spun) Stl C. cayetanensis PCR Not detected (Not Detect) Stool Rotavirus (PCR) Not detected (Not Detect) Stool Adenovirus (PCR) Not detected (Not Detect) Stool Astrovirus (PCR) Not detected (Not Detect) Stool Cryptosporidium PCR Not detected (Not Detect) Stl E.coli Shiga Tox PCR Not detected (Not Detect) St Sh/Enteroin Ecoli PCR Not detected (Not Detect) Stl Enterotoxigenic E PCR Not detected (Not Detect) Stool EPEC (PCR) Not detected (Not Detect) Stl E. histolytica PCR Not detected (Not Detect) Stool Giardia Lamblia PCR Not detected (Not Detect) Stool Sapovirus (PCR) Not detected (Not Detect) Stl P. shigelloides PCR Not detected (Not Detect) St Y.enterocolitica PCR Not detected (Not Detect) Stool Vibrio (PCR) Not detected (Not Detect) Stl Vibrio cholerae PCR Not detected (Not Detect) Stl Enteroaggr Ecoli PCR Not detected (Not Detect) Stl Norovirus GI/GII PCR Detected (Not Detect) Campylobacter (PCR) Not detected (Not Detect) C. difficile Tox (PCR) Not detected (Not Detect) Salmonella (PCR) Not detected (Not Detect) Urine Dip Bedside Urine Glucose Negative Bedside Urine Bilirubin - Negative Bedside Urine Ketone - Negative Urine Specific [place] 1.01 Bedside Urine Occult Blood ++ Bedside Urine pH 6.0 Bedside Urine Protein +/- 15 Bedside Urine Urobilinogen - Negative Bedside Urine Nitrite - Negative Bedside Urine Leukocytes - Negative Esterase Point of care testing: Urine Dip Bedside Urine Glucose Negative Bedside Urine Bilirubin - Negative Bedside Urine Ketone - Negative Urine Specific [place] 1.01 Bedside Urine Occult Blood ++ Bedside Urine pH 6.0 Bedside Urine Protein +/- 15 Bedside Urine Urobilinogen - Negative Bedside Urine Nitrite - Negative Bedside Urine Leukocytes - Negative Esterase Imaging Data CT scan - abdomen/pelvis: Radiologist's Impression: PROCEDURE: CT ABDOMEN PELVIS W CON INDICATIONS: LLQ pain TECHNIQUE: After the administration of intravenous contrast, axial sections acquired from the lung bases to the pubic symphysis. Coronal and sagittal reformats were performed. For radiation dose reduction, the following was used: automated exposure control, adjustment of mA and/or kV according to patient size. COMPARISON: [facility], CT, CT ABDOMEN PELVIS W CON, 08/13/2020, 13:54. [facility], CT, CT ABDOMEN PELVIS W CON, 10/15/2023, 18:44. FINDINGS: Image quality: Diagnostic. Lower Chest: Right lung base pulmonary nodule measuring 0.5 cm, (3/24), unchanged. No pleural effusion. Coronary artery calcifications. ABDOMEN: Liver: No solid mass. A few calcified granuloma. Gallbladder: Absent. Biliary ducts: Intrahepatic bile ducts are prominent. Common hepatic duct measures 1.3 cm. The distal CBD measures 0.8 cm. Slightly more prominent compared to CT from 2023. Pancreas: No ductal dilation. No peripancreatic fluid collection. Spleen: Size is within normal limits. Adrenal Glands: Left adrenal nodule measuring 1 cm, (2/45), unchanged. Most consistent with a small benign adenoma. Kidneys and Ureters: No hydronephrosis. Punctate nonobstructing left kidney stone. Multiple small low-density renal cysts. A few cysts which are mildly increased in density. For example: Left kidney upper pole 1.3 cm, (4/58), previously 1.7 cm, and remotely 1.3 cm in 2021. Stomach and Bowel: Diverticulosis. Inflammatory change at the sigmoid colon diverticuli, (2/130), consistent with diverticulitis. No abscess. No free air. Normal appendix. A few prominent loops of small bowel containing fluid. No transition point to suggest obstruction. The stomach is not significantly distended. Peritoneum: No abnormal intraperitoneal fluid. No free air. Ventral Wall: No significant ventral hernia. Abdominal Nodes: No retroperitoneal or mesenteric adenopathy by size criteria. Vessels: Aorta and inferior vena cava are normal in size. Circumferential calcified atherosclerotic plaque. Dense plaque in the SMA. PELVIS: Pelvic Organs: Uterus is absent. Bladder: No bladder wall thickening, accounting for underdistention. Pelvic Nodes: No enlarged lymph nodes. Miscellaneous: No inguinal hernias are seen. Bones: No aggressive osseous abnormality. Multilevel DDD. IMPRESSION: 1. Acute sigmoid colon diverticulitis the left pelvis. No abscess. 2. A few prominent loops of small bowel. No discrete transition point to suggest obstruction. 3. Prominent bile ducts. This could be due to reserve phenomenon in this post cholecystectomy patient. The ducts appear slightly increased in size compared to 202. Correlation with serum bilirubin would be helpful. 4. Several small complicated renal cysts. Not significantly changed compared to 202. Some are slightly increased compared to 2021. Punctate nonobstructing left kidney stone. Dictated by: Chele Cain M.D. on 05/10/2025 at 18:27 MDM Narrative Medical decision making narrative: CC: Vomiting diarrhea and now left lower quadrant pain Complicating co-morbidities: Hypertension, hyperlipidemia, hypothyroidism Data collected from: patient, friend accompanying her Differential considered: Diverticulitis, bowel obstruction gastroenteritis, colitis Exam documented above, pertinent findings include: Slightly pale moderately dry tenderness in the left abdomen without rebound or guarding Lab Test results independently reviewed as above. Pertinent findings: CBC shows mild leukocytosis at 11.3 without significant left shift, no anemia Chemistries show appropriate renal function, minimally elevated AST and ALT alk-phos and bilirubin are normal Lipase is unremarkable Procalcitonin is not elevated Urine does not suggest infection Stool sample is positive for norovirus Imaging studies independently reviewed: Diverticulitis without abscess Treatments: L of fluid, Zofran, 2 g of ceftriaxone and half a mg of Dilaudid were given Re-evaluations: Discussion: 79-year-old woman presents with vomiting, diarrhea and now left lower quadrant pain. Turns out that the vomiting and diarrhea likely from the norovirus that is on day 3 or 4. We talked about need for continued hydration and expected resolution of a viral gastroenteritis. She is given prescription for ondansetron. CT scan also shows developing diverticulitis which explains the worsening left-sided abdominal pain today. I suspect that this likely was exacerbated by the diarrhea. We will place her on Augmentin for 10 days. There is no sign of sepsis, she is able to eat and drink, she has help available at home there was no indication for hospitalization or further imaging at this time and she is safely discharge Discharge Plan Departure Patient Disposition: Home Clinical Impression: Diverticulitis, Acute gastroenteropathy due to Norovirus Instructions: DI for Diverticulitis, DI for Viral Gastroenteritis -- Adult Activity Restrictions/Additional Instructions: Thank you for coming in today You have to issues which is why your symptoms do not completely fit together. You have norovirus, this is a viral gastroenteritis and this is why you have been vomiting and having diarrhea. Making sure that you are staying well hydrated be important. You are almost through the worse part of this You also have acute diverticulitis. I have given you initial dose of antibiotics in the emergency department but you will need 10 additional days of Augmentin. You can start this tomorrow so hopefully the norovirus tummy issues have had another 12 hours to settle a bit. Prescription for Augmentin, the antibiotic to be taken morning and night for 10 days as well as ondansetron to use for nausea [facility] [place]. If you find that you are getting worse or develop any new symptoms, please feel free to return to the emergency department for further evaluation. Prescriptions: New amoxicillin-pot clavulanate 875-125 mg tablet 1 tab PO BID Qty: 20 0RF ondansetron 4 mg tablet,disintegrating 4 mg PO Q8H PRN (Reason: nausea and vomiting) Qty: 14 0RF No Action lisinopril 5 MG tablet 5 mg PO QDAY Qty: 0 carvedilol 25 mg tablet 25 mg PO BID Qty: 180 2RF Rx Instructions: must administer with a meal/food atorvastatin [Lipitor] 20 mg Tablet 20 mg PO BEDTIME Qty: 30 0RF levothyroxine [Synthroid] 50 mcg Tablet 50 mcg PO DAILY@0600 Qty: 30 0RF aspirin 81 mg tablet,delayed release (DR/EC) 81 mg PO DAILY Qty: 30 0RF fluoxetine [Prozac] 20 mg capsule 20 mg PO ONCE Qty: 30 0RF Rx Instructions: Hold until Plavix is completed Stand Alone Forms: Patient Portal/API
--- NOTE | 2025-05-10 16:15 | DI.RAD.S_ITS ---
PROCEDURE: XR CHEST 1V
--- NOTE | 2025-05-10 16:25 | EKG_ITS ---
[facility]
[2025-05-10 16:36] LABS: Culture Indicated Urine Cult Not Indicated
[2025-05-10] MEDS: ONDANSETRON 4 MG/2 ML INJ IV (16:50)
[2025-05-10] MEDS: SODIUM CHLORIDE 0.9% 1,000 ML 1000 ML IV (16:51)
[2025-05-10 16:53] LABS: Add Manual Diff / Slide Review NO; Hematocrit 40.8 % (36-46); Hemoglobin 13.4 g/dL (12.0-16.0); Lymphocytes Absolute Auto 1300 /uL (1100-4500); Mean Corpuscular HGB Conc 32.9 % (30-36); Mean Corpuscular Hemoglobin 26.3 PG (26-34); Mean Corpuscular Volume 80.0 fL (80-100); Platelet Count 255 X10^3/uL (150-400)
[2025-05-10 17:09] LABS: Lactate (Lactic Acid) 1.1 mmol/L (0.7-2.1)
[2025-05-10 17:10] LABS: Alanine Aminotransferase 42 IU/L (<35); Albumin 4.5 g/dL (3.5-5.0); Albumin Globulin Ratio 1.1 (1.0-2.8); Alkaline Phosphatase 119 U/L (38-126); Blood Urea Nitrogen 13 mg/dL (7-17); Calcium 9.7 mg/dL (8.4-10.2); Carbon Dioxide 24 mmol/L (22-32); Chloride 101 mmol/L (98-107); Estimated Glomerular Filt Rate 56 mL/min (>60); Globulin 4.0 g/dL (1.7-4.1); Glucose 141 mg/dL (70-99); HEMOLYSIS < 15 (0-50); Lipase 65 U/L (23-300); Magnesium 1.7 mg/dL (1.6-2.3); Potassium 4.2 mmol/L (3.4-5.1); Sodium 135 mmol/L (137-145); Total Protein 8.5 g/dL (6.3-8.2)
[2025-05-10] MEDS: cefTRIAXone 2,000 MG in SODIUM CHLORIDE 0.9% 100 ML 200 MG IV (17:13)
--- NOTE | 2025-05-10 17:20 | PC.NURSE ---
left lower quadrant pain and nausea for several days
--- NOTE | 2025-05-10 17:23 | DI.CT.S_ITS ---
PROCEDURE: CT ABDOMEN PELVIS W CON
[2025-05-10 17:27] LABS: Procalcitonin 0.070 ng/mL (<0.5)
[2025-05-10 20:08] LABS: Clostridium difficile toxin AB Not Detected (Not Detect); Enteroaggregative E.coli Not Detected (Not Detect); Enteropathogenic E.coli Not Detected (Not Detect); Enterotoxigenic E.coli It/st Not Detected (Not Detect); Plesiomonsa shigelloides Not Detected (Not Detect); Shiga-like toxin-prod E.coli Not Detected (Not Detect)
== END 2025-05-10 21:38 | disposition home or self-care (01) ==
PROVIDERS: Emergency Provider Emergency Medicine
DX: A08.11 Acute gastroenteropathy due to Norwalk agent (principal); K57.92 Diverticulitis of intestine, part unspecified, without perforation or abscess without bleeding; R11.2 Nausea with vomiting, unspecified; I10 Essential (primary) hypertension
CPT/HCPCS: 36415; 71045; 74177; 80053; 81003; 81015; 83605; 83690; 83735; 84145; 85025; 87040; 87507; 93005; 96365; 96366; 96375; 99284; J0696; J1171; J2405; J7030; J7050; Q9967